=== PATIENT | female | born 2000 | race Caucasian/White ===

== ENCOUNTER → 2022-01-29 | Outpatient (CLI) | payer MEDICAID, SELFPAY ==
[2022-01-29 15:31] LABS: Mucous, Urine 0 SEEN /hpf (<or=2+)
[2022-01-29 15:45] LABS: Color, Urine Amber (Yellow); Glucose, Dipstick Normal (Normal); Ketone-Dipstick Negative (Negative); Leukocyte Esterase-Dipstick 100 /ul (Negative); Nitrite-Dipstick Negative (Negative); Occult Blood-Urine 10 /ul (Negative); Protein-Dipstick Negative (Negative); Urine Clarity Clear (Clear); Urine Urobilinogen 4 mg/dl (Normal); Urine pH 6.5 (5.0 - 8.0)
[2022-01-29 16:05] LABS: Urine Bilirubin Dipstick 3 mg/dL (Negative)
[2022-01-29 16:07] LABS: Bacteria 2+ /hpf (None Seen); Red Blood Cells-Urine 0-5 SEEN /hpf (0-5); Squamous Epithelial Cells - UA 5-10 SEEN /hpf (5-10); White Blood Cells 0-5 SEEN /hpf (0-5)
== END | disposition home or self-care (01) ==
LOC: LABSPEC 15:08
PROVIDERS: PCP Pediatrics; Visit Provider Physician Assistant
DX: R10.9 Unspecified abdominal pain (principal)
CPT/HCPCS: 81001; 87086; 87088

== ENCOUNTER → 2024-07-19 | Outpatient (CLI) | payer OTHER, SELFPAY ==
[2024-07-19 12:37] LABS: Absolute Lymphocyte Count 2.43 X10^3/uL (0.83-4.51); Absolute Neutrophil Count 1.4 X10^3/uL (2.0-7.7); Basophil# 0.06 X10^3/uL; Basophil% 1.4 % (0-1); Eosinophil# 0.04 X10^3/uL; Eosinophils% 0.9 % (0-5); Hematocrit 42.6 % (37-47); Hemoglobin 13.9 g/dL (12.0-15.0); Lymphocyte # 2.43 X10^3/ul (0.83-4.51); Lymphocyte % 57.2 % (19-41); Mean Corp Hgb Conc 32.6 g/dL (32-36); Mean Corpuscular Hgb 29.6 pg (27.0-32.0); Mean Corpuscular Volume 90.8 fL (81-99); Mean Platelet Vol. 10.9 fl (6.2-12.0); Monocyte# 0.32 X10^3/uL; Monocyte% 7.5 % (0-10); NRBC Flagged by Analyzer 0 % (0-5); Neutrophil # 1.39 X10^3/uL (2.7-7.7); Neutrophil % 32.8 % (47-70); Platelet Count 340 K/mm3 (150-450); RBC Distribution Width CV 12.4 % (11.6-14.6); RBC Distribution Width SD 40.9 fl (35.1-43.9); Red Blood Count 4.69 M/mm3 (4.2-5.4); White Blood Count 4.3 K/mm3 (4.4-11.0)
[2024-07-19 12:41] LABS: ALB/GLOB Ratio 1.1 RATIO (0.9-2.4); AST(SGOT) 11 U/L (15-37); Alanine Aminotransfer ALT/SGPT 18 U/L (13-56); Alkaline Phosphatase 70 U/L (45-117); Anion Gap 4 (5-15); BUN 9 mg/dL (7-18); BUN/Creat Ratio 10.3 RATIO (10-20); Calcium,Total 9.2 mg/dL (8.5-10.1); Chloride 107 mmol/L (98-107); Cholesterol 134 mg/dL (200); Creatinine, Serum 0.87 mg/dL (0.55-1.02); EST Glomerular Filtration Rate 86 mL/min (>60); Est Glom Filt Rate - Afr Amer 104 mL/min (>60); Globulin 3.5 g/dL (2.2-4.2); Glucose 79 mg/dL (74-106); High Density Lipoprotein 56 mg/dL; Potassium 3.6 mmol/L (3.5-5.1); Protein, Total 7.5 g/dL (6.4-8.2); Sodium Level 138 mmol/L (136-145); Triglycerides 69 mg/dL; Very Low Density Lipoprotein 14 mg/dL (5-40)
== END | disposition home or self-care (01) ==
LOC: BWCLAB 08:13
PROVIDERS: Referring Provider Physician Assistant; Visit Provider Physician Assistant
DX: Z00.00 Encounter for general adult medical examination without abnormal findings (principal)

== ENCOUNTER → 2024-08-05 | Outpatient (CLI) | payer OTHER, SELFPAY ==
[2024-08-11 08:24] LABS: HPV Reflexed? NOT INDICATED
== END | disposition home or self-care (01) ==
LOC: LABSPEC 16:33
PROVIDERS: Referring Provider Obstetrics & Gynecology; Visit Provider Obstetrics & Gynecology
DX: Z12.4 Encounter for screening for malignant neoplasm of cervix (principal)
CPT/HCPCS: 88175; G0145

== ENCOUNTER → 2025-04-21 | Outpatient (CLI) | payer OTHER, SELFPAY ==
--- OUTSIDE RECORDS SUMMARY | 2025-04-21 12:07 | XMS RPT_ITS | CCD ---
Author Organization [facility] Care Team Providers Care Cadmium Burner Name Role Phone Ashleigh Caraballo LPN Unavailable Unavailab Ashleigh Herrera LPN Unavailable Unavailab Clotilde Aparicio MD Primary Care Provider Dr. Clotilde Fox Primary Care Provider Dr. Clotilde Fox Referring Provider [phone] Rosales MCKNIGHT, [place] Jung Muniz Attending Provider Clotilde Fox MD Primary Care Provider Clotilde Fox MD Primary Care Provider CLOTILDE FOX Primary Care Unavailable AILYN PICHARDO Referring Unavailable RUDDY, CLOTILDE Mcmullen Primary Care Unavailable IRMA JAY Attending Unavailable AILYN PICHARDO Referring Unavailable CLOTILDE FOX Primary Care Unavailable CLOTILDE FOX Primary Care Unavailable CLOTILDE FOX Referring Unavailable RUDDY, CLOTILDE Primary Care Unavailable CLOTILDE FOX Attending Unavailable CLOTILDE FOX Primary Care Unavailable IRMA JAY Attending Unavailable RUDDY, CLOTILDE Mcmullen Primary Care Unavailable IRMA JAY Referring Unavailable Dr. Clotilde Fox MD Referring Provider Dr. Alisson Martell MD Attending Provider Dr. Alisson Martell MD Referring Provider [phone] Dr. Alisson Martell MD Attending Provider Dr. Nuris Ta DO Attending Provider Alisson Martell Attending Unavailable Alisson Martell Referring Unavailable Kervin Curtis Referring Unavailable Kervin Curtis Attending Unavailable Assessment, Health Risk Referring Unavaila ble Assessment, Health Risk Attending Unavaila ble Nuris Ta Attending UnavailAlisson Walter Attending Unavailable Alisson Martell Attending Unavailable Clotilde Fox Referring Unavailable Alisson Martell Attending Unavailable Kervin Curtis Attending Unavailable Allergies Allergy Classification Reported Allergen(s) Allergy Type Date of Onset Reaction(s) Facility (15 sources) Amoxicillin; Translations: [AMOXICILLIN] Drug Allergy 03-03-2013 [facility] (13 sources) cefpodoxime; Translations: [CEFPODOXIME PROXETIL] Drug Allergy 09-24-2005 [facility] Work Phone: (2 sources) cefpodoxime Drug Allergy 10-07-2024 [facility] (1 source) Amoxicillin Drug Allergy 01-03-2025 [facility] (1 source) cefpodoxime Drug Allergy 01-03-2025 [facility] Medications Current Medications Medication Drug Class(es) Dates Sig (Normalized) Sig (Original) benzoyl peroxide 0.05 mg/mg / clindamycin 0.01 mg/mg topical gel (11 sources) Lincosamide Antibacterial Start: 09-04-2021 End: 09-04-2022 Clindamycin-Benzoyl Peroxide (BENZACLIN) 1-5 % gel Apply to affected area twice daily. 50 g 5 09/04/2021 09/04/2022 Active Comment on above: Apply to affected ar ea twice daily. iv contrast (will be provided with radiology test) (1 source) Start: 02-20-2022 End: 02-21-2022 iv contrast (will be provided with radiology test) Indications: Elevated bilirubin , Abnormal results of liver function studies MRI PANC/COREY Inject, intravenously, once for 1 dose. No IV access, insert saline lock prior to the beginning of sedation, infusion, injection of imaging exam. Discontinue saline lock post exam. If Pt. has a central line or IVAD, may access for administration according to line specific nursing protocol. Once exam is complete flush line and de-access according to line specific nursing protocol in the MR contrast administration guidelines link. 1 Each 0 02/20/2022 02/21/2022 Active Comment on above: MRI PANC/COREY Inject, intravenously, once for 1 dose. No IV access, insert saline lock prior to the beginning of sedation, infusion, injection of imaging exam. Discontinue saline lock post exam. If Pt. has a central line or IVAD, may access for administration according to line specific nursing protocol. Once exam is complete flush line and de-access according to line specific nursing protocol in the MR contrast administration guidelines link. levonorgestrel 0.336299 mg/hr intrauterine system (2 sources) Progestin, Progestin-containin g Intrauterine Device Start: 10-07-2024 Levonorgestrel (Jacqueline) 14 mcg/24 hr (3 yrs) 13.5 mg intrauterine device Active 1 NMA INTRA-UTER ONCE October 07, 2024 12:00am as a single dose Completed/Discontinued Medications Medication Drug Class(es) Dates Sig (Normalized) Sig (Original) ferrous sulfate 325 mg oral tablet (4 sources) Start: 04-21-2022 ferrous sulfate 325 mg (65 mg iron) tablet Indications: Iron deficiency anemia, unspecified iron deficiency anemia type Take 1 tablet every other day (or Mon/Wed/Fri). Take with food to minimize GI upset. Take with vitamin C for better absorption. 90 tablet 0 04/21/2022 Active Start: 04-21-2022 End: 04-21-2022 take 1 tablet by mouth once daily at breakfast ferrous sulfate 325 mg (65 mg iron) tablet Indications: Iron deficiency anemia, unspecified iron deficiency anemia type Take 1 tablet by mouth daily with breakfast. 90 tablet 0 04/21/2022 04/21/2022 Discontinued Comment on above: Take 1 tablet every other day (or Mon/Wed/Fri). Take with food to minimize GI upset. Take with vitamin C for better absorption. Take 1 tablet by stephie th daily with breakfast. fluticasone propionate 0.05 mg/actuat metered dose nasal spray (6 sources) Corticosteroid Start: 022 take 1 spray(s) nasal route twice daily fluticasone (FLONASE) 50 mcg/actuation nasal spray INSTILL 1 SPRAY INTO EACH NOSTRIL 2 (TWO) TIMES A DAY FOR 28 DAYS 0 02/14/2022 Active Comment on above: INSTILL 1 SPRAY INTO EACH NOSTRIL 2 (TWO) TIMES A DAY FOR 28 DAYS nitrofurantoin, macrocrystals 25 mg / nitrofurantoin, monohydrate 75 mg oral capsule (10 sources) Nitrofuran Antibacterial Start: End: take 1 capsule by mouth every twelve hours at mealtime Nitrofurantoin Monohyd/M-Cryst (Macrobid) 100 mg capsule Discontinued 100 mg PO Q12H 10 5 0 January 29, 2022 12:00am February 02, 2022 12:00am February 03, 2022 12:03am must administer with a meal/food Comment on above: Take 100 mg by mouth q 12 HR. Problems Active Problems Problem Classification Problem Date Documented Date Episodic/Chronic Abdominal pain (4 sources) Abdominal pain; Translations: [Unspecified abdominal pain] Episodic Administrative/social admission (4 sources) Special examination status; Translations: [Encounter for examination for participation in sport] Episodic Biliary tract disease (1 source) Cholestasis; Translations: [Obstruction of bile duct] Chronic Deficiency and other anemia (1 source) Iron deficiency anemia; Translations: [Iron deficiency anemia, unspecified] Episodic Genitourinary symptoms and ill-defined conditions (4 sources) Bilirubinuria; Translations: [Biliuria] Episodic Immunizations and screening for infectious disease (1 source) Encounter for immunization; Translations: [Encounter for immunization] Onset: 01-03-2025 Episodic Other liver diseases (5 sources) Hyperbilirubinemia; Translations: [Unspecified jaundice] Episodic Other liver diseases (2 sources) Increased bilirubin level; Translations: [Unspecified jaundice] Episodic Other liver diseases (2 sources) Unspecified jaundice; Translations: [Serum total bilirubin elevated] Onset: 04-21-2022 Episodic Other nutritional; endocrine; and metabolic disorders (2 sources) History of iron deficiency; Translations: [Personal history of other endocrine, nutritional and metabolic disease] Episodic Other nutritional; endocrine; and metabolic disorders (1 source) Personal history of other endocrine, nutritional and metabolic disease; Translations: [History of iron deficiency] Onset: 02-23-2023 Episodic Unclassified (2 sources) History and physical examination, sports participation ; Translations: [Encounter for examination for participation in sport] Onset: 01-26-2017 01-26-2017 Urinary tract infections (4 sources) Urinary tract infectious disease; Translations: [Urinary tract infection, site not specified] Episodic Past or Other Problems Problem Classification Problem Date Documented Date Episodic/Chronic Contraceptive and procreative management (7 sources) Patient encounter status; Translations: [Encounter for insertion of intrauterine contraceptive device] Onset: 10-07-2024 10-07-2024 Episodic Deficiency and other anemia (1 source) Iron deficiency anemia, unspecified; Translations: [Iron deficiency anemia, unspecified iron deficiency anemia type] Onset: 04-21-2022 Episodic Other screening for suspected conditions (not mental disorders or infectious disease) (4 sources) Liver function tests abnormal; Translations: [Abnormal results of liver function studies] Onset: 03-13-2022 Episodic Other upper respiratory infections (2 sources) Acute pharyngitis; Translations: [Acute pharyngitis, unspecified] Onset: 02-23-2010 Resolved: 03-09-2010 02-23-2010 Episodic Results Test Name Value Interpretation Reference Range Facility Office Visit Reporton 2024 Office Visit Report [facility] [address] [place] [address] OFFICE VISIT Date of Service: 01/03/25 MR#: [id number] Acct: [id number] Patient: ELIZABETH DUKE Rep #: [id number] : 2000 Provider: Dr. Nuris Chu DO Age/Sex: 24/F [place] [facility] [place]: Signed Intake Vital Signs 11/17/24 12:06 01/03/25 11:34 Height 5 ft 11 in 5 ft 11 in Weight: 178 lb BMI 24.8 BP 123/76 H Intake Visit Reasons: TDAP *ok per MS Chief Complaint: Annual Propagator Laborer Required: No Is patient in pain?: No Allergies amoxicillin Adverse Reaction (Intermediate, Verified 01/03/25 11:34) Hives cefpodoxime (From Vantin) Adverse Reaction (Mild, Verified 01/03/25 11:34) Hives Medications ???Medication ???Instructions ???Recorded ???Confirmed ???Type levonorgestrel 14 mcg/24 hr (up to 1 device intrauterine ONCE 10/0701/03/25 History 3 yrs) 13.5 mg intrauterine device (Jacqueline) Post menopausal: No Patient : No Have you fallen in the past year?: No Immunizations Boostrix Tdap 2.5 Lf unit-8 mcg-5 Lf/0.5 mL intramuscular syringe Performing Provider: Nuris Ta DO Performing Location: [facility] Administered by: Destiney Peralta on 01/03/25 11:34 Dose Route Admin Location Dispensed Lot Number Expiration Date NDC Man ufacturer 0.5 mL IM Right Deltoid 0.5 mL [id number] 01/02/27 71550-998-77 [employer]- PASTEUR VIS Given Date VIS Provided VIS Publication Date 01/03/25 Single Vaccine 24 Eligibility Eligibility Date Funding Source Not Applicable Assessment and Plan Assessment and Plan Orders: Orders Tdap Immunization 01/03/25 Z23 - Encounter for immunization Clinical Quality Measures Falls Risk Screening/Assistive Devices Have you fallen in the past year?: No 01/09/25 1255 Date Nuris Ta DO Cosigner Signature: Date (if applicable) CC: Normal [facility] Higher Level Teaching Assistant Office Visit Reporton 11-17-2024 Higher Level Teaching Assistant Office Visit Report [facility] [address], [facility] [address] [place] [address] OFFICE VISIT Date of Service: 11/17/24 MR#: [id number] Acct: [id number] Name: ELIZABETH DUKE Rep #: [id number] : 2000 Provider: Dr. Alisson granados MD Age/Sex: 24/F [place] [facility] [place]: Signed Intake Vital Signs 10/07/24 16:14 11/17/24 12:05 11/17/24 12:06 Height 5 ft 11 in 5 ft 11 in 5 ft 11 in Weight: 175 lb 4 oz BMI 24.4 BP 146/93 H 134/89 H Intake Visit Reasons: IUD check *copay 19.00 Propagator Laborer Required: No Is patient in pain?: Yes (cramping since IUD insertion) Allergies amoxicillin Adverse Reaction (Intermediate, Verified 10/07/24 16:20) Hives cefpodoxime (From Vantin) Adverse Reaction (Mild, Verified 10/07/24 16:20) Hives Medications ???Medication ???Instructions ???Recorded ???Confirmed ???Type levonorgestrel 14 mcg/24 hr (up to 1 device intrauterine ONCE 10/0711/17/24 History 3 yrs) 13.5 mg intrauterine device (Jacqueline) Is last menstrual period known: Yes Last Menstrual Period: 10/22/24 Post menopausal: No Patient : No : No PFSH Medical History (Updated 11/18/24 @ 17:[address] 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 Female Reproductive History Last Menstrual Period: 10/22/24 ROS Const Constitutional: Reports system reviewed and no additional complaints, except as documented : Reports system reviewed and no additional complaints, except as documented and as per HPI Exam Const General: cooperative, healthy appearing, comfortable and no acute distress External Female Exam: normal external appearance Coding Level of Care Code Off vis,est,level 2 Diagnoses IUD check up Z30.431 Assessment and Plan Assessment and Plan (1) IUD check up: Plan Problem list updated and treatment plans were reviewed with the patient and relevant educational handouts given. See problem list details for specific plan information. 11/18/24 1717 Date Alisson Martell MD Cosigner Signature: Date (if applicable) CC: Normal [facility] - Chemistry and C hemistry - challengeOrdered By: Alisson Martell on 10-07-2024 HCG ( test) Ql (U) Negative [facility] Higher Level Teaching Assistant Office Visit Reporton 10-07-2024 Higher Level Teaching Assistant Office Visit Report [facility] [address], [address] [place] [address] OFFICE VISIT Date of Service: 10/07/24 MR#: [id number] Acct: [id number] Name: ELIZABETH DUKE Rep #: [id number] : 2000 Provider: Dr. Alisson granados MD Age/Sex: 23/F [place] [facility] [place]: Signed Intake Vital Signs 08/05/24 15:58 10/07/24 16:14 Height 5 ft 11 in 5 ft 11 in Weight: 175 lb 175 lb 4 oz BMI 24.4 24.4 BP 132/86 H 146/93 H Intake Visit Reasons: Jacqueline Insertion *copay 19.00 Propagator Laborer Required: No Is patient in pain?: No Allergies amoxicillin Adverse Reaction (Intermediate, Verified 10/07/24 16:20) Hives cefpodoxime (From Vantin) Adverse Reaction (Mild, Verified 10/07/24 16:20) Hives Medications ???Medication ???Instructions ???Recorded ???Confirmed ???Type levonorgestrel 14 mcg/24 hr (up to 1 device intrauterine ONCE 10/0710/07/24 History 3 yrs) 13.5 mg intrauterine device (Jacqueline) Is last menstrual period known: Yes Last Menstrual Period: 09/26/24 Post menopausal: No Patient : No : No PFSH PFSH Medical History Wears glasses Bilirubin in urine Urinary tract infection with hematuria Routine sports physical exam Abdominal pain Surgical History H/O tooth extraction Family History Father Parkinson disease Unknown Breast cancer Social History household members: spouse and other details: in [employer], 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 smoker alcohol intake: current alcohol intake frequency: holidays/special occasions only substance use type: does not use what type of physical activity do you participate in: weight training frequency: 3-4 times per week seatbelt use: always do you feel safe at home: Yes HPI Jacqueline Insertion *copay 19.00 Details: ELIZABETH DUKE is a 23 year old who presents for iud insertion Female Reproductive History Last Menstrual Period: 09/26/24 ROS Const Constitutional: Reports system reviewed and no additional complaints, except as documented : Reports system reviewed and no additional complaints, except as documented and as per HPI Exam Const General: cooperative, healthy appearing, comfortable and no acute distress External Female Exam: normal external appearance and normal appearance of the urethra Urethra: normal appearance of the urethra Speculum Exam - Vagina: normal appearance of the vagina and normal vaginal discharge Speculum Exam - Cervix: normal appearance of the cervix (strings seen 3-4 cm in length) Bimanual Exam- Vagina Uterus: normal bimanual exam Bimanual Exam- Adnexa, other: normal adnexae, adnexae mobile and no masses Office Procedures IUD Insertion IUD GC/Chlamydia:: not done Test: Yes Negative Consent Signed: Yes IUD: Yes Jacqueline IUD inserted Time out time: 16:45 Details: Sign in Communication: Completed Sign out documentation: Completed The uterus sounded to 7 cm. After prepping the cervix with betadine and using sterile technique, the cervix was grasped with a single tooth tenaculum and the IUD was inserted without difficulty and the string was cut to 3cm from the external os of the cervix. All instruments were removed from the vagina and excellent hemostasis was noted. Procedure Summary: patient tolerated the procedure well without complication. Office Meds levonorgestrel 14 mcg/24 hr (up to 3 yrs) 13.5 mg intrauterine device Performing Provider: Alisson Martell MD Performing Location: [facility] Administered by: Destiney Peralta on 10/07/24 16:15 Dose Route Admin Location Dispensed Lot Number Expiration Date [facility] Man ufacturer 1 insert intrauterine [facility] 1 insert [id number] 09/02/26 77821-2 22- CARLOS,[employer] Total Dispensed Waste 1 insert 0 % Results POC Urine Office , Urine Negative Last Edit by Destiney Peralta on 10/07/24 16:28 Coding Level of Care Code Attention Sharon Diagnoses Encounter for IUD insertion Z30.430 Assessment and Plan Assessment and Plan (1) Encounter for IUD insertion: Status: Acute Orders: Orders Jacqueline IUD Today Z30.430 - Encounter for insertion of intrauterine contraceptive device POC Urine Today Z30.9 - Encounter for contraceptive management, unspecified Plan Problem list updated and treatment plans were reviewed with the patient and relevant educational handouts given. See problem list details for specific (more content not included)... Normal [facility] PAP I-G w/rfx hrHPV-Aptimaon 08-10-2024 ADEQ Comment Normal . [facility] Comment on above: Order Comment: Speci men Comment: [id number] Specimen Comment: Source.............Cervix;Endocervix Specimen Comment: No. of containers..01 ThinPrep Vial Result Comment: Sati sfactory for evaluation. Endocervical and/or squamous metaplastic cells (endocervical component) are present. Performed By: #### L 7400.0353 #### [facility] [place], [address] COMM . Normal . [facility] Comment on above: Order Comment: Speci men Comment: [id number] Specimen Comment: Source.............Cervix;Endocervix Specimen Comment: No. of containers..01 ThinPrep Vial Performed By: #### L 7400.0353 #### [facility] [address] [place], [place], [address] COMMENT Comment Normal . [facility] Comment on above: Order Comment: Speci men Comment: [id number] Specimen Comment: Source.............Cervix;Endocervix Specimen Comment: No. of containers..01 ThinPrep Vial Result Comment: This liquid based ThinPrep(R) pap test was screened with the use of an image guided system. Performed By: #### L 7400.0353 #### [facility] [address] [place], [place], [id number] DIAG Comment Normal . [facility] Comment on above: Order Comment: Speci men Comment: [id number] Specimen Comment: Source.............Cervix;Endocervix Specimen Comment: No. of containers..01 ThinPrep Vial Result Comment: NEGA TIVE FOR INTRAEPITHELIAL LESION OR MALIGNANCY. Performed By: #### L 7400.0353 #### [facility] [address] [facility]. [place], [place], [id number] HPV RFLX Comment Normal . [facility] Comment on above: Order Comment: Speci men Comment: [id number] Specimen Comment: Source.............Cervix;Endocervix Specimen Comment: No. of containers..01 ThinPrep Vial Result Comment: The HPV DNA reflex criteria were not met with this specimen result therefore, no HPV testing was performed. Performed at: [address] [id number] Flux Plant Operator: Franco Castro PhD, Phone: [phone] Performed at: [address] [id number] Flux Plant Operator: Carla Goldstein MD, Phone: [phone] Performed By: #### L 7400.0353 #### [facility] [address] [place], [place], [id number] PAPSMR Comment Normal . [facility] Comment on above: Order Comment: Speci men Comment: [id number] Specimen Comment: Source.............Cervix;Endocervix Specimen Comment: No. of containers..01 ThinPrep Vial Result Comment: The Pap smear is a screening test designed to aid in the detection of premalignant and malignant conditions of the uterine cervix. It is not a diagnostic procedure and should not be used as the sole means of detecting cervical cancer. Both false-positive and false-negative reports do occur. Performed By: #### L 7400.0353 #### [facility] [address] [place], [address] PERFORM Comment Normal . [facility] Comment on above: Order Comment: Speci men Comment: [id number] Specimen Comment: Source.............Cervix;Endocervix Specimen Comment: No. of containers..01 ThinPrep Vial Result Comment: Norma Ann Lacing String Cutter (ASCP) Performed By: #### L 7400.0353 #### [facility] [address] [place], [place], [id number] Cervical or vagninal specime n microscopic examination by cytology stain (reported asOrdered By: Alisson Martell on 08-05-2024 Cytology report Cyto stain Doc (Cvx/Vag) Comment . [facility] Comment on above: The Pap smear is a s creening test designed to aid in thedetection of premalignant and malignant conditions of theuterine cervix. It is not a diagnostic procedure andshould not be used as the sole means of detecting cervicalcancer. Both false-positive and false-negative reports dooccur. Laboratory - CytologyOrdered By: Alisson Martell on 08-05-2024 Anesthesiologist Attending Cyto stain Nom (Cvx/Vag) [ID] Comment . [facility] Comment on above: Rae Ann, Cyto technologist (ASCP) Laboratory - Miscellaneous t estsOrdered By: Alisson Martell on 08-05-2024 Service comment (Unsp spec) [Interp] . . [facility] No Panel InformationOrdered By: Alisson Martell on 08-05-2024 Pap Smear Specimen Adequacy Comment . [facility] Comment on above: Satisfactory for jonnie luation. Endocervical and/or squamous metaplasticcells (endocervical component) are present. Higher Level Teaching Assistant Office Visit Reporton 08-05-2024 Higher Level Teaching Assistant Office Visit Report [facility] [address], [address] [place] [address] OFFICE VISIT Date of Service: 08/05/24 MR#: [id number] Acct: [id number] Name: ELIZABETH DUKE Rep #: [id number] : 2000 Provider: Dr. 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 considering IUD, discussed 24 year old cousin has breast cancer Last PAP: Never History of abnormal PAP: none Other preventative health care screenings: PCP Female Reproductive History Cycle Length: 21-35 Bleeding Duration: 5 Questions: metorrhagia: No, sexually active: Yes, dyspareunia: No and PCB: No Menopausal Symptoms: No hot flashes, No night sweats, No weight change, No mood changes, No difficulty concentrating, No sleep problems and No change in libido ROS Const Constitutional: Reports as per HPI; Denies fatigue, increased appetite, poor appetite, night sweats, weight gain or weight loss Cardio Card: Denies chest pain Resp Resp: Denies cough or dyspnea GI GI: Reports as per HPI; Denies abdominal pain, bloating, constipation, nausea or vomiting : Reports as per HPI and other; Denies difficulty voiding, dysuria, hematuria, hot flashes, nipple discharge, pelvic pain, prolapse symptoms, urinary frequency, urinary incontinence, urinary urgency, vaginal discharge, vaginal dryness, vaginal odor or vaginal pruritus Skin Skin/Breast: Denies changing lesions, breast mass, breast pain, breast skin changes or nipple discharge Psych Psych: Denies anxiety, change in libido, depression or difficulty concentrating Exam Const General: cooperative, healthy appearing, comfortable, no acute distress, well developed and well groomed [facility] Head: normal to inspection and normocephalic Ears: hearing grossly normal bilaterally and external ears normal Nose: external nose normal Face and sinus: normal facial exam Neck Neck: normal visual inspection, full ROM and no lymphadenopathy Thyroid: thyroid normal Chest Chest palpation inspection: normal inspection of the chest Breast inspection: normal inspection of the breasts and normal inspection of the axillae Breast palpation: normal palpation of the breasts, normal palpation of the axillae and no axillary lymphadenopathy Resp Effort Inspection: normal respiratory effort GI Inspection: normal to inspection and non-distended Palpation: soft, no hepatosplenomegaly and no guarding General: bladder normal to palpation External Female Exam: normal external appearance, normal appearance of the urethra and no lesions Urethra: normal appearance of the urethra and normal palpation Speculum Exam - Vagina: normal appearance of the vagina and normal vaginal discharge Speculum Exam - Cervix: normal appearance of the cervix, no cervical discharge, no lesions and nontender Bimanual Exam- Vagina Uterus: normal bimanual exam, uterine size normal, bladder normal to palpation, No tender, uterine mobility normal, consistency normal, non-tender and no cervical motion tenderness Bimanual Exam- Adnexa, other: normal adnexae, no masses and non-tender Skin General: no rashes or lesions noted Neuro General: patient alert, moves all extremities and no focal motor (more content not included)... Normal [facility] CBC W/Diff, Automatedon 07-06-2024 Absolute Lymph 2.43 X10 3/uL Normal 0.83-4.51 [facility] Comment on above: Performed By: #### L 500.4050, L100.0100, L500.4100 #### [facility] [address] [place], [address] Absolute Neut 1.4 X10 3/uL Low 2.0-7.7 [facility] Comment on above: Performed By: #### L 500.4050, L100.0100, L500.4100 #### [facility] [address] [place], [address] Basophils/100 WBC (Bld) 1.4 % High 0-1 [facility] Comment on above: Performed By: #### L 500.4050, L100.0100, L500.4100 #### [facility] [address] [place], [address] Eosinophils/100 WBC (Bld) 0.9 % Normal 0-5 [facility] Comment on above: Performed By: #### L 500.4050, L100.0100, L500.4100 #### [facility] [address] [place], [address] Erythrocyte distribution width (RBC) [Ratio] 12.4 % Normal 11.6-14.6 [facility] Comment on above: Performed By: #### L 500.4050, L100.0100, L500.4100 #### [facility] [address] [place], [address] Hematocrit (Bld) [Volume fraction] 42.6 % Normal 37-47 [facility] Comment on above: Performed By: #### L 500.4050, L100.0100, L500.4100 #### [facility] [address] [place], [address] Hemoglobin (Bld) [Mass/Vol] 13.9 g/dL Normal 12.0-15.0 [facility] Comment on above: Performed By: #### L 500.4050, L100.0100, L500.4100 #### [facility] [address] [place], [address] IG% 0.200 Normal 0.0-0.9 [facility] Comment on above: Result Comment: IG% - Immature Granulocytes (promyelocytes, myelocytes and metamyelocytes) > 1% indicates that a LEFT SHIFT is Present. Performed By: #### L 500.4050, L100.0100, L500.4100 #### [facility] [address] [place], [address] Lymphocytes/100 WBC (Bld) 57.2 % High 19-41 [facility] Comment on above: Performed By: #### L 500.4050, L100.0100, L500.4100 #### [facility] [address] [place], [address] MCH (RBC) [Entitic mass] 29.6 pg Normal 27.0-32.0 [facility] Comment on above: Performed By: #### L 500.4050, L100.0100, L500.4100 #### [facility] [address] [place], [address] MCHC (RBC) [Mass/Vol] 32.6 g/dL Normal 32-36 [facility] Comment on above: Performed By: #### L 500.4050, L100.0100, L500.4100 #### [facility] [address] [place], [address] MCV (RBC) [Entitic vol] 90.8 fL Normal 81-99 [facility] Comment on above: Performed By: #### L 500.4050, L100.0100, L500.4100 #### [facility] [address] [place], [address] Monocytes/100 WBC (Bld) 7.5 % Normal 0-10 [facility] Comment on above: Performed By: #### L 500.4050, L100.0100, L500.4100 #### [facility] [address] [place], [address] Neutrophils/100 WBC (Bld) 32.8 % Low 47-70 [facility] Comment on above: Performed By: #### L 500.4050, L100.0100, L500.4100 #### [facility] [address] [place], [address] Nucleated RBC (Bld) [#/Vol] 0 10*3/uL Normal 0-5 [facility] Comment on above: Performed By: #### L 500.4050, L100.0100, L500.4100 #### [facility] [address] [place], [address] Platelet mean volume (Bld) [Entitic vol] 10.9 fL Normal 6.2-12.0 [facility] Comment on above: Performed By: #### L 500.4050, L100.0100, L500.4100 #### [facility] [address] [place], [id number] Platelets (Bld) [#/Vol] 340 10*3/uL Normal 150-450 [facility] Comment on above: Performed By: #### L 500.4050, L100.0100, L500.4100 #### [facility] [address] [place], [id number] RBC (Bld) [#/Vol] 4.69 10*6/uL Normal 4.2-5.4 [facility] Comment on above: Performed By: #### L 500.4050, L100.0100, L500.4100 #### [facility] [address] [place], [id number] RDW SD 40.9 fl Normal 35.1-43.9 [facility] Comment on above: Performed By: #### L 500.4050, L100.0100, L500.4100 #### [facility] [address] [place], [id number] WBC (Bld) [#/Vol] 4.3 10*3/uL Low 4.4-11.0 [facility] Comment on above: Performed By: #### L 500.4050, L100.0100, L500.4100 #### [facility] [address] [place], [id number] Comprehensive Metabolic Prof [facility] 07-19-2024 Albumin [Mass/Vol] 4.0 g/dL Normal 3.2-5.0 [facility] Comment on above: Performed By: #### L 500.4050, L100.0100, L500.4100 #### [facility] [address] [place], [id number] Albumin/Globulin [Mass ratio] 1.1 {ratio} Normal 0.9-2.4 [facility] Comment on above: Performed By: #### L 500.4050, L100.0100, L500.4100 #### [facility] [address] [place], [address] ALK P 70 U/L Normal 45-117 [facility] Comment on above: Performed By: #### L 500.4050, L100.0100, L500.4100 #### [facility] [address] [place], [address] ALT [Catalytic activity/Vol] 18 U/L Normal 13-56 [facility] Comment on above: Performed By: #### L 500.4050, L100.0100, L500.4100 #### [facility] [address] [place], [address] AST [Catalytic activity/Vol] 11 U/L Low 15-37 [facility] Comment on above: Performed By: #### L 500.4050, L100.0100, L500.4100 #### [facility] [address] [place], [id number] Bilirubin [Mass/Vol] 2.90 mg/dL High 0.20-1.00 [facility] Comment on above: Result Comment: For patients on eltrombopag therapy, use of Dimension [place] TBIL is not recommended. Performed By: #### L 500.4050, L100.0100, L500.4100 #### [facility] [address] [place], [id number] BUN/CRE 10.3 RATIO Normal 10-20 [facility] Comment on above: Performed By: #### L 500.4050, L100.0100, L500.4100 #### [facility] [address] [place], [address] CA,Total 9.2 mg/dL Normal 8.5-10.1 [facility] Comment on above: Performed By: #### L 500.4050, L100.0100, L500.4100 #### [facility] [address] [place], [address] Chloride [Moles/Vol] 107 mmol/L Normal 98-107 [facility] Comment on above: Performed By: #### L 500.4050, L100.0100, L500.4100 #### [facility] [address] [place], [address] CO2 [Moles/Vol] 28.0 mmol/L Normal 21.0-32.0 [facility] Comment on above: Performed By: #### L 500.4050, L100.0100, L500.4100 #### [facility] [address] [place], [address] Creatinine [Mass/Vol] 0.87 mg/dL Normal 0.55-1.02 [facility] Comment on above: Result Comment: The validity of the calculated GFR GFRAA in patients over 70 years has not been determined. Clinical correlation is essential. Performed By: #### L 500.4050, L100.0100, L500.4100 #### [facility] [address] [place], [address] EST GFR - AA 104 mL/min Normal >60 [facility] Comment on above: Result Comment: Afri can Kyr[place]z GFR Calc Performed By: #### L 500.4050, L100.0100, L500.4100 #### [facility] [address] [place], [address] GAP 4 Low 5-15 [facility] Comment on above: Performed By: #### L 500.4050, L100.0100, L500.4100 #### [facility] [address] [place], [address] GFR/1.73 sq M.predicted among non-blacks MDRD (S/P/Bld) [Vol rate/Area] 86 mL/min/{1.73_m2} Normal >60 [facility] Comment on above: Result Comment: Non- GFR Calc Performed By: #### L 500.4050, L100.0100, L500.4100 #### [facility] [address] [place], [address] Globulin (S) [Mass/Vol] 3.5 g/dL Normal 2.2-4.2 [facility] Comment on above: Performed By: #### L 500.4050, L100.0100, L500.4100 #### [facility] [address] [place], [address] Glucose [Mass/Vol] 79 mg/dL Normal 74-106 [facility] Comment on above: Performed By: #### L 500.4050, L100.0100, L500.4100 #### [facility] [address] [place], [address] Potassium [Moles/Vol] 3.6 mmol/L Normal 3.5-5.1 [facility] Comment on above: Performed By: #### L 500.4050, L100.0100, L500.4100 #### [facility] [address] [place], [address] Sodium [Moles/Vol] 138 mmol/L Normal 136-145 [facility] Comment on above: Performed By: #### L 500.4050, L100.0100, L500.4100 #### [facility] [address] [place], [address] T PROT 7.5 g/dL Normal 6.4-8.2 [facility] Comment on above: Performed By: #### L 500.4050, L100.0100, L500.4100 #### [facility] [address] [place], [address] Urea nitrogen [Mass/Vol] 9 mg/dL Normal 7-18 [facility] Comment on above: Performed By: #### L 500.4050, L100.0100, L500.4100 #### [facility] [address] [place], [address] Lipid Profileon 07-19-2024 Cholesterol [Mass/Vol] 134 mg/dL Normal 200 [facility] Comment on above: Result Comment: <200 mg/dL Desirable 200-240 mg/dL Borderline >240 mg/dL High Risk Performed By: #### L 500.4050, L100.0100, L500.4100 #### [facility] [address] [place], [address] Cholesterol in HDL [Mass/Vol] 56 mg/dL Normal [facility] Comment on above: Result Comment: The drugs N-Acetylcysteine and Metamizole may falsely depress this assay. Reference Range HDL <40 mg/dL Low HDL Cholesterol HDL >or= 60 mg/dL High HDL Cholesterol Performed By: #### L 500.4050, L100.0100, L500.4100 #### [facility] [address] [place], [address] Cholesterol in LDL [Mass/Vol] 64 mg/dL Normal 0-130 [facility] Comment on above: Performed By: #### L 500.4050, L100.0100, L500.4100 #### [facility] [address] [place], [address] Cholesterol in VLDL [Mass/Vol] 14 mg/dL Normal 5-40 [facility] Comment on above: Performed By: #### L 500.4050, L100.0100, L500.4100 #### [facility] [address] [place], [address] Triglyceride [Mass/Vol] 69 mg/dL Normal [facility] Comment on above: Result Comment: The drugs N-Acetylcysteine and Metamizole may falsely depress this assay. Serum Triglycerides Reference Interval Normal <150 mg/dL Borderline high 150 - 199 mg/dL High 200 - 499 mg/dL Very High > or = 500 mg/dL Performed By: #### L 500.4050, L100.0100, L500.4100 #### [facility] [address] [place], [address] Internal Medicine Office Vis iton 07-15-2024 Internal Medicine Office Visit [facility] [address] [place] [address] OFFICE VISIT Date of Service: 07/15/24 MR#: [id number] Acct: [id number] Name: ELIZABETH DUKE Rep #: [id number] : 2000 Provider: JUAN LUIS Erickson Age/Sex: 23/F Location: [facility] Status: Signed Intake Vital Signs 07/15/24 07:51 07/15/24 08:36 Height 5 ft 11 in Weight: 180 lb BMI 25.1 BP 120/70 Blood Pressure Location Lt brachial Position Sitting Respiration 16 Pulse 102 H 88 Pulse Source Monitor Palpation Temp 97.2 F L Temp Source Temporal Pulse Oximetry (%) 99 Oxygen Delivery Method room air Intake Visit Reasons: EST NEW PT - PPWKS SENT 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 Accompanied by: Self Is patient in pain?: No Allergies amoxicillin Adverse Reaction (Intermediate, Verified 07/15/24 07:43) Hives cefpodoxime (From Vantin) Adverse Reaction (Mild, Verified 07/15/24 07:43) Hives Medications ???Medication ???Instructions ???Recorded ???Confirmed ???Type NK 07/15/24 07/15/24 History PFSH Medical History (Updated 07/15/24 @ 08:32 by JUAN LUIS Root) Wears glasses Bilirubin in urine Urinary tract infection with hematuria Routine sports physical exam Abdominal pain Surgical History (Updated 07/15/24 @ 07:44 by Lorena Lopez MA) H/O tooth extraction Family History (Updated 07/15/24 @ 07:44 by Lorena Lopez MA) Father Parkinson disease Social History (Updated 07/15/24 @ 07:54 by Lorena Lopez MA) household members: spouse and other details: in [employer], 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 Patient states that to this point she has only seen her counselor dormitory and they would not see her anymore Patient states that she is a healthy 23 year old female with a PMH significant only for some anemia requiring Iron supplements and acne requiring medication. Patient does have a history of Gilbert syndrome where she had a large work-up which was normal and therefore was given that diagnosis. No other issues. Family history positive for parkinsons in her father. She has a first cousin he has breast cancer at age 24 so the family is doing genetic counseling She is not currently taking any prescription medications Patient does get regular exercise 3-4 times per week Patient states that her diet is good She sees eye doctor annually. She does wear contacts and glasses She has not seen a dentist in a few years. She has not had any dental issues Patient as UTD with immunizations. 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 Patient is seeing director of tax services and sees them at the end of this month Patient does not consume alcohol No nicotine use Limited caffeine use ROS Const Constitutional: No body ache, chills, excessive sweating, fatigue, fever(s), frequent falls, headache(s), snoring, weakness or change in appetite Eyes Eyes: No blurry vision, change in vision, eye pain or Light sensitivity ENT ENT: No abnormal hearing, ear or mastoid pain, tinnitus, nasal congestion, headache(s), neck pain or sore throat Resp Respiratory: No cough, shortness of breath, snoring or wheezing Cardio Cardiology: No chest pain at rest, chest pain with exertion, excessive sweating, dyspnea on exertion, lightheadedness, orthopnea or palpitations Gastro GI: No abdominal pain, change in bowel habits, constipation, cramping, diarrhea, nausea/dyspepsia or vomiting Genitourinary-Female: No burning urination, painful urination, urinary incontinence or urinary frequency Musc Musculoskeletal: No abnormal gait, joint pain, back pain, limited range of motion, muscle weakness, neck pain or numbness Skin Skin: No dry skin, redness, lesions, itchy eyes, rash or wounds Neuro Neurology: No abnormal gait, abnormal hearing, weakness, frequent falls, headache(s), memory loss or numbness Psych Psychiatric: No anxiety, No change in appetite, No depression, No memory loss and No Thoughts of harming yourself/Others Endo Endocrine: No cold intolerance, excessive sweating, fatigue, flushing, heat intolerance, increased thirst/drinking or increased hunger Aller/Imm Allergy/Immunologic: No itchy eyes, seasonal allergy symptoms, hives or wheezing Irving/L (more content not included)... Normal [facility] CBC panel Auto (Bld)on 02-24 Erythrocyte distribution width (RBC) [Ratio] 12.0 % 11.5 - 15.0 % [facility] Hematocrit (Bld) [Volume fraction] 43.9 % 36.0 - 46.0 % [facility] Hemoglobin (Bld) [Mass/Vol] 14.8 g/dL 11.5 - 15.5 g/dL [facility] MCH (RBC) [Entitic mass] 30.1 pg 26.0 - 34.0 pg [facility] MCHC (RBC) [Mass/Vol] 33.7 g/dL 30.5 - 36.0 g/dL [facility] MCV (RBC) [Entitic vol] 89.2 fL 80.0 - 100.0 fL [facility] Nucleated RBC (Bld) [#/Vol] <0.01 k/uL [facility] Platelet mean volume (Bld) [Entitic vol] 11.1 fL 9.0 - 12.7 fL [facility] Platelets (Bld) [#/Vol] 341 10*3/uL 150 - 400 k/uL [facility] RBC (Bld) [#/Vol] 4.92 10*6/uL 3.90 - 5.2 0 m/uL [facility] WBC (Bld) [#/Vol] 7.12 10*3/uL 3.70 - 11. 00 k/uL [facility] FERRITIN BLDon 02-24-2023 Ferritin [Mass/Vol] 18.5 ng/mL 14.7 - 2 05.1 ng/mL [facility] bilirubin panel [Ma ss/Vol]on 02-24-2023 Bilirubin [Mass/Vol] 2.5 mg/dL High 0.2 - 1 .3 mg/dL [facility] Bilirubin.conjugated [Mass/Vol] 1.7 mg/dL High <0.2 mg/dL [facility] Bilirubin.indirect [Mass/Vol] 0.8 mg/dL <1.4 mg/dL [facility] CBC panel Auto (Bld)on 02-23 Erythrocyte distribution width (RBC) [Ratio] 12.0 % Normal 11.5-15.0 [facility] Comment on above: Order Comment: Speci men Type: BLOOD SPECIMEN Ordering Facility: [facility] Address: [address] [place] [address] Performed By: #### 5 8410-2 #### [facility] CLIA [id number] [facility] [address] [place] Hematocrit (Bld) [Volume fraction] 43.9 % Normal 36.0-46.0 [facility] Comment on above: Order Comment: Joycei pricila Type: BLOOD SPECIMEN Ordering Facility: [facility] Address: [address] [place] [address] Performed By: #### 5 8410-2 #### [facility] CLIA [id number] [facility] [address] [place] Hemoglobin (Bld) [Mass/Vol] 14.8 g/dL Normal 11.5-15.5 [facility] Comment on above: Order Comment: Speci men Type: BLOOD SPECIMEN Ordering Facility: [facility] Address: [address] [place] [address] Performed By: #### 5 8410-2 #### [facility] CLIA [id number] [address] [place] [address] [place] MCH (RBC) [Entitic mass] 30.1 pg Normal 26.0-34.0 [facility] Comment on above: Order Comment: Speci men Type: BLOOD SPECIMEN Ordering Facility: [facility] Address: [address] [place], [place] [id number] Performed By: #### 5 8410-2 #### [facility] CLIA [id number] [address] [place] [address] [place] MCHC (RBC) [Mass/Vol] 33.7 g/dL Normal 30.5-36.0 [facility] Comment on above: Order Comment: Speci men Type: BLOOD SPECIMEN Ordering Facility: [facility] Address: [address] [place], [place] [id number] Performed By: #### 5 8410-2 #### [facility] CLIA [id number] [address] [place] [address] [place] MCV (RBC) [Entitic vol] 89.2 fL Normal 80.0-100.0 [facility] Comment on above: Order Comment: Speci men Type: BLOOD SPECIMEN Ordering Facility: [facility] Address: [address] [place], [place] [id number] Performed By: #### 5 8410-2 #### [facility] CLIA [id number] [address] [place] [address] [place] Nucleated RBC (Bld) [#/Vol] 10*3/uL Normal <0.01 [facility] Comment on above: Order Comment: Speci men Type: BLOOD SPECIMEN Ordering Facility: [facility] Address: [address] Performed By: #### 5 8410-2 #### [facility] CLIA [id number] [address] [place] [address] [place] Platelet mean volume (Bld) [Entitic vol] 11.1 fL Normal 9.0-12.7 [facility] Comment on above: Order Comment: Speci men Type: BLOOD SPECIMEN Ordering Facility: [facility] Address: [address] [place] [address] Performed By: #### 5 8410-2 #### [facility] CLIA [id number] [address] [place] [address] [facility] [place] Platelets (Bld) [#/Vol] 341 10*3/uL Normal 150-400 [facility] Comment on above: Order Comment: Speci men Type: BLOOD SPECIMEN Ordering Facility: [facility] Address: [address] [place] [address] Performed By: #### 5 8410-2 #### [facility] CLIA [id number] [address] [place] [address] [place] RBC (Bld) [#/Vol] 4.92 10*6/uL Normal 3.90-5.20 [facility] Comment on above: Order Comment: Speci men Type: BLOOD SPECIMEN Ordering Facility: [facility] Address: [address] [place] [address] Performed By: #### 5 8410-2 #### [facility] CLIA [id number] [address] [place] [address] [place] WBC (Bld) [#/Vol] 7.12 10*3/uL Normal 3.70-11.00 [facility] Comment on above: Order Comment: Speci men Type: BLOOD SPECIMEN Ordering Facility: [facility] Address: [address] [place] [address] Performed By: #### 5 8410-2 #### [facility] CLIA [id number] [address] [place] [address] OF [facility] CNOVon 02-23-2023 CNOV Office Visit (PEDSWS ) ELIZABETH NUNO ([id number]) 2 F Date Time Provider Department 02/23/23 2:30 PM CLOTILDE FOX During your visit today, we recorded the following information about you: Temperature Pulse Respiration Blood pressure 98.6 degrees 60/minute 14/minute 114/62 Weight Height Last Period 79.5 kg 1.803 m 02/05/23 Clotilde Fox MD 03/07/2023 9:18 AM Signed WELL VISIT PEDIATRIC 18+ YRS OLD is a 22 year old who presents today for well exam. SUBJECTIVE CONCERNS: Recheck iron v HISTORY There is no problem list on file for this patient. PAST MEDICAL HISTORY Diagnosis Date PMH - PAST MEDICAL HISTORY OF 11/05/06 normal color vision Varicella without mention of complication 8 months old PAST SURGICAL HISTORY Procedure Laterality Date NONE UNLISTED PROCEDURE DENTOALVEOLAR STRUCTURES wisdom teeth removal ALLERGIES Allergen Reactions Amoxicillin Hives Vantin [Cefpodoxime* Medications: ferrous sulfate 325 mg (65 mg iron) tablet Take 1 tablet every other day (or Mon/Wed/Fri). Take with food to minimize GI upset. Take with vitamin C for better absorption. fluticasone (FLONASE) 50 mcg/actuation nasal spray INSTILL 1 SPRAY INTO EACH NOSTRIL 2 (TWO) TIMES A DAY FOR 28 DAYS (Patient not taking: Reported on 05/30/2022) FAMILY HISTORY Problem Relation Age of Onset Asthma Brother Asthma Maternal Grandmother Cancer Paternal Grandfather Colon Cancer No Family History Social History Social History Narrative Not on file Smoking Exposure: Do you spend a significant amount of time with anyone who smokes? No School: Presently in College. Any concerns regarding peer interactions? No Physical Activity: more than 1 hour of physical activity per day Recreational Screen Time totaling less than 2 hours of screen time per day. Fainting, dizziness, significant shortness of breath or chest pain with sports or exercise: No History of concussion in the last year: No Safety: Reviewed seat belts and bike helmets Diet: -Eats 2-3 meals a day, 2-3 snacks -Typically drinks water -Eats fruits and vegetables Elimination: no concerns, normal size and consistency Dental: dental care not current Sleep: -no sleep concerns VISUAL ACUITY: Today's exam: Vision Correction? Contacts: RIGHT EYE: 20/20 LEFT EYE: 20/ 20 Vision: No vision concerns, wears contacts, see's an eye doctor Hearing: No hearing concerns Growth: No growth concerns Gynecological history: LMP: 02/05/23 Cycles are regular and last 5-7 days. Dysmenorrhea: none Heavy periods: no Substance use: none Sexual History: Attraction: male Sexually Active: No Body image: satisfactory Screening tools reviewed and discussed with patient/lzgaml-ODY-0. Please see Patient Entered Data. PHQ-9 = 1 OBJECTIVE Physical Exam: BP 114/62 Pulse 60 Temp 37 ?C (98.6 ?F) (Temporal) Resp 14 Ht 180.3 cm (5' 10.98) Wt 79.5 kg (175 lb 3.2 oz) LMP 02/05/2023 (Exact Date) BMI 24.45 kg/m? Blood pressure %elizabeth are not available for patients who are 18 years or older. Blood pressure %elizabeth are not available for patients who are 18 years or older. Normalized BMI data available only for age 0 to 20 years. Last BMI: Wt: 82.8 kg (182 lb 9.6 oz) BMI: 25.47 kg/(m2) Last 4 Encounter Wt Readings: Date: Wt: 05/30/2022 82.8 kg (182 lb 9.6 oz) 04/21/2022 82.4 kg (181 lb 12 oz) 02/20/2022 74.8 kg (165 lb) 01/30/2022 77.6 kg (171 lb) Last 4 Encounter Ht Readings: Date: Ht: 02/20/2022 180.3 cm (5' 11) 01/28/2021 180.8 cm (5' 11.18) (>99 %, Z= 2.72)* 01/17/2020 180.3 cm (5' 11) (>99 %, Z= 2.66)* 05/31/2019 179.8 cm (5' 10.79) (>99 %, Z= 2.59)* General: alert and active in no apparent distress Head: Normocephalic, atraumatic Eyes: Steady central gaze without nystagmus. Conjunctiva clear without injection or discharge. Ears: External ears normal. Canals clear. Tympanic membranes are intact bilaterally without evidence of fluid in the middle ear space Nose/Sinuses: Nares normal. Septum midline. Mucosa normal. No drainage or sinus tenderness. Oropharynx: Tonsils are 1+. Uvula is midline and the oropharynx is symmetrical Neck: No masses and the suprasternal notch, no supraclavicular adenopathy, supple, no adenopathy Thyroid: no masses or nodules present Heart: Regular Rate and Rhythm without murmurs or clicks, femoral and radial pulses are normal.PMI normal Lungs: clear to auscultation. No wheezes or rales.Chest AP diameter normal. Abdomen: Abdomen is soft, nontender, without organomegaly or masses. Musculoskeletal: Extremities with FROM and no problems identified. Bilateral shoulder, elbow and wrist exams are within normal limits. Bilateral hip, knee and ankle examinations are within normal limits. Neurological: Muscle tone normal, Awake, alert and oriented x 3, Crania (more content not included)... Normal [facility] Ferritin SerPl-mCncon 2022 Ferritin [Mass/Vol] 18.5 ng/mL Normal 14.7-205.1 [facility] Comment on above: Order Comment: Speci men Type: BLOOD SPECIMEN Ordering Facility: [facility] Address: [address] [address] Performed By: #### 5 0189-0, 2275-10 #### [facility] CLIA [id number] [address] [place] [address] [place] bilirubin panel [Ma ss/Vol]on 02-23-2023 Bilirubin [Mass/Vol] 2.5 mg/dL High 0.2-1.3 [facility] Comment on above: Order Comment: Specmirela mcnulty Type: BLOOD SPECIMEN Ordering Facility: [facility] Address: [address] [id number] Performed By: #### 5 0189-0, 2275-10 #### [facility] CLIA [id number] [facility] [place] [address] [place] Bilirubin.conjugated [Mass/Vol] 1.7 mg/dL High <0.2 [facility] Comment on above: Order Comment: Speci men Type: BLOOD SPECIMEN Ordering Facility: [facility] Address: [address] [address] Performed By: #### 5 0189-0, 2276-4 #### [facility] CLIA [id number] [address] [place] [address] [place] Bilirubin.indirect [Mass/Vol] 0.8 mg/dL Normal <1.4 [facility] Comment on above: Order Comment: Speci men Type: BLOOD SPECIMEN Ordering Facility: [facility] Address: [address] [address] Performed By: #### 5 0189-0, 2276-4 #### [facility] CLIA [id number] [facility] [place] [address] [place] UA DIP, URINE (POC)on 2022 BILIRUBIN UA (POCT) Small Abnormal Negative [facility] CLARITY UA (POCT) Clear [facility] COLOR UA (POCT) Dark yellow [facility] GLUCOSE UA (POCT) Negative Negative mg/dL [facility] Hemoglobin Ql (U) Negative Negative [facility] KETONE UA (POCT) Trace Negative mg/dL [facility] LEUKOCYTES UA (POCT) Moderate Abnormal Negative [facility] NITRITE UA (POCT) Negative Negative [facility] PH UA (POCT) 6.5 4.5 - 8.0 [facility] Protein Ql (U) Negative Negative mg/dL [facility] SPECIFIC GRAVITY UA (POCT) 1.020 1.005 - 1.030 [facility] UROBILINOGEN UA (POCT) 0.2 E.U./dL Chloe l E.U./dL [facility] CNOVon 05-30-2022 CNOV Office Visit (PEDSWS ) ELIZABETH NUNO ([id number]) 2 F Date Time Provider Department 05/30/22 9:00 AM IRMA JAY During your visit today, we recorded the following information about you: Temperature Pulse Respiration Blood pressure 97.3 degrees 64/minute 14/minute 118/70 Weight Last Period 82.8 kg 05/30/22 Irma Jay APRN.FOAM CASTER 05/30/2022 9:42 AM Signed PEDIATRIC SICK VISIT SERVICE DATE: 05/30/2022 SUBJECTIVE: Elizabeth Nuno is a 21 year old presenting to clinic for follow up medication check. Patient presents with: Follow up : Medication Check Patient was seen in clinic 04/21/22 and started on iron supplementation for iron deficiency that was found when labs were ordered by GI. Ferritin was low, 12.3 She did not have anemia. Patient denies excessive fatigue or other symptoms. She has recent hx of URI and reports mild intermittent cough. History was obtained from: patient HISTORY: There is no problem list on file for this patient. PAST MEDICAL HISTORY Diagnosis Date PMH - PAST MEDICAL HISTORY OF 11/05/06 normal color vision Varicella without mention of complication 8 months old PAST SURGICAL HISTORY Procedure Laterality Date NONE UNLISTED PROCEDURE DENTOALVEOLAR STRUCTURES wisdom teeth removal Allergies: ALLERGIES Allergen Reactions Amoxicillin Hives Vantin [Cefpodoxime* Medications: ferrous sulfate 325 mg (65 mg iron) tablet Take 1 tablet every other day (or Mon/Wed/Fri). Take with food to minimize GI upset. Take with vitamin C for better absorption. Clindamycin-Benzoyl Peroxide (BENZACLIN) 1-5 % gel Apply to affected area twice daily. fluticasone (FLONASE) 50 mcg/actuation nasal spray INSTILL 1 SPRAY INTO EACH NOSTRIL 2 (TWO) TIMES A DAY FOR 28 DAYS (Patient not taking: Reported on 05/30/2022) OBJECTIVE: BP 118/70 Pulse 64 Temp 36.3 ?C (97.3 ?F) (Temporal) Resp 14 Wt 82.8 kg (182 lb 9.6 oz) LMP 05/30/2022 (Exact Date) BMI 25.47 kg/m? General: well appearing, alert and active in no apparent distress Eyes: conjunctiva clear, PERRL Ears: TMs translucent bilaterally, normal landmarks noted Nose: no rhinorrhea, no mucosal edema OP: no lesions, no erythema Neck: supple, no adenopathy Lungs: clear to auscultation bilaterally, good air exchange, no wheezes CVS: Normal rate, regular rhythm, no murmur Skin: No rashes, lesions or skin changes ASSESSMENT/PLAN: Encounter Diagnosis ICD-10-CM 1. History of iron deficiency Z86.39 - At last visit, 04/21/22, ferritin was low, 12.3, with no anemia. Repeat labs done 05/27/22 show ferritin increased to 24.7, with no anemia. - Continue iron supplementation Mon/Wed/Fri for total of 3 months treatment (Discontinue around 07/22/22) - Recommend iron-rich diet - Return to clinic as needed for well care or for any concerns. SIGNATURE: Irma Jay APRN.CNP PATIENT NAME: Elizabeth Nuno DATE: May 30, 2022 TIME: 9:10 AM Irma Jay APRN.YANA 05/30/2022 9:21 AM Signed - Continue iron supplement Mon/Wed/Fri for total of 3 months treatment (until around 07/22/22) - Continue with iron-rich diet Allergies As of Date: 05/30/2022 Noted Allergy Reaction AMOXICILLIN 03/03/2013 4 - Hives VANTIN (CEFPODOXIME PROXETIL) 09/24/2005 Date Reviewed: 05/30/2022 Reviewed by: Irma Jay APRN.FOAM CASTER - Fully Assessed Reason for Visit: Follow up [Other] Cmt: Medication Check Primary Visit Diagnosis:History of iron deficiency [Z86.39] Prescriptions as of 05/30/2022 - ferrous sulfate 325 mg (65 mg iron) tablet Take 1 tablet every other day (or Mon/Wed/Fri). Take with food to minimize GI upset. Take with vitamin C for better absorption. - fluticasone (FLONASE) 50 mcg/actuation nasal spray INSTILL 1 SPRAY INTO EACH NOSTRIL 2 (TWO) TIMES A DAY FOR 28 DAYS - Clindamycin-Benzoyl Peroxide (BENZACLIN) 1-5 % gel Apply to affected area twice daily. Problem List As Of Date: 05/30/2022 (None) Other instructions from your clinician: - Continue iron supplement Mon/Wed/Fri for total of 3 months treatment (until around 07/22/22) - Continue with iron-rich diet Disposition: Return if symptoms worsen or fail to improve. Follow-up and Disposition History for Encounter Date Provider Department Center 05/30/2022 [id number] JAY [facility] Encounter Status:Closed by IRMA JAY on 05/30/22 Normal [facility] CBC W Auto Differential pane l (Bld)on 05-27-2022 Basophils (Bld) [#/Vol] 0.06 10*3/uL Normal <0.11 [facility] Comment on above: Order Comment: Speci men Type: BLOOD SPECIMEN Ordering Facility: [facility] Address: [address] [place] [address] Performed By: #### 5 7021-8 #### [facility] CLIA [id number] [address] [place] [address] [place] Basophils/100 WBC (Bld) 0.9 % Normal [facility] Comment on above: Order Comment: Speci men Type: BLOOD SPECIMEN Ordering Facility: [facility] Address: [address] [place] [address] Performed By: #### 5 7021-8 #### [facility] CLIA [id number] [address] [place] [address] [place] Differential cell count method Nom (Bld) Auto Normal [facility] Comment on above: Order Comment: Speci men Type: BLOOD SPECIMEN Ordering Facility: [facility] Address: [address] [place] [address] Performed By: #### 5 7021-8 #### [facility] CLIA [id number] [address] [place] [address] [place] Eosinophils (Bld) [#/Vol] 0.06 10*3/uL Normal <0.46 [facility] Comment on above: Order Comment: Speci men Type: BLOOD SPECIMEN Ordering Facility: [facility] Address: [address] Performed By: #### 5 7021-8 #### [facility] CLIA [id number] [address] [place] [address] [place] Eosinophils/100 WBC (Bld) 0.9 % Normal [facility] Comment on above: Order Comment: Speci men Type: BLOOD SPECIMEN Ordering Facility: [facility] Address: [address] Performed By: #### 5 7021-8 #### [facility] CLIA [id number] [address] [place] [address] [place] Erythrocyte distribution width (RBC) [Ratio] 12.6 % Normal 11.5-15.0 [facility] Comment on above: Order Comment: Speci men Type: BLOOD SPECIMEN Ordering Facility: [facility] Address: [address] Performed By: #### 5 7021-8 #### [facility] CLIA [id number] [address] [place] [address] [place] Hematocrit (Bld) [Volume fraction] 43.3 % Normal 36.0-46.0 [facility] Comment on above: Order Comment: Speci men Type: BLOOD SPECIMEN Ordering Facility: [facility] Address: [address] [place] [address] Performed By: #### 5 7021-8 #### [facility] CLIA [id number] [address] [place] [address] [place] Hemoglobin (Bld) [Mass/Vol] 14.2 g/dL Normal 11.5-15.5 [facility] Comment on above: Order Comment: Speci men Type: BLOOD SPECIMEN Ordering Facility: [facility] Address: [address] Performed By: #### 5 7021-8 #### [facility] CLIA [id number] [address] [place] [address] [place] Immature granulocytes (Bld) [#/Vol] 10*3/uL Normal <0.10 [facility] Comment on above: Order Comment: Speci men Type: BLOOD SPECIMEN Ordering Facility: [facility] Address: [address] [address] Performed By: #### 5 7021-8 #### [facility] CLIA [id number] [address] [place] [address] [place] Immature granulocytes/100 WBC (Bld) 0.3 % Normal [facility] Comment on above: Order Comment: Speci men Type: BLOOD SPECIMEN Ordering Facility: [facility] Address: [address] [place], [place] [address] Performed By: #### 5 7021-8 #### [facility] CLIA [id number] [address] [place] [address] [place] Lymphocytes (Bld) [#/Vol] 2.32 10*3/uL Normal 1.00-4.00 [facility] Comment on above: Order Comment: Speci men Type: BLOOD SPECIMEN Ordering Facility: [facility] Address: [address] [place], [place] [address] Performed By: #### 5 7021-8 #### [facility] CLIA [id number] [address] [place] [address] [place] Lymphocytes/100 WBC (Bld) 35.7 % Normal [facility] Comment on above: Order Comment: Speci men Type: BLOOD SPECIMEN Ordering Facility: [facility] Address: [address] [place], [place] [address] Performed By: #### 5 7021-8 #### [facility] CLIA [id number] [address] [place] [address] [place] MCH (RBC) [Entitic mass] 29.5 pg Normal 26.0-34.0 [facility] Comment on above: Order Comment: Speci men Type: BLOOD SPECIMEN Ordering Facility: [facility] Address: [address] Performed By: #### 5 7021-8 #### [facility] CLIA [id number] [address] [place] [address] [place] MCHC (RBC) [Mass/Vol] 32.8 g/dL Normal 30.5-36.0 [facility] Comment on above: Order Comment: Speci men Type: BLOOD SPECIMEN Ordering Facility: [facility] Address: [address] [place], [place] [address] Performed By: #### 5 7021-8 #### [facility] CLIA [id number] [address] [place] [address] [place] MCV (RBC) [Entitic vol] 90.0 fL Normal 80.0-100.0 [facility] Comment on above: Order Comment: Speci men Type: BLOOD SPECIMEN Ordering Facility: [facility] Address: [address] Performed By: #### 5 7021-8 #### [facility] CLIA [id number] [address] [place] [address] [place] Monocytes (Bld) [#/Vol] 0.57 10*3/uL Normal <0.87 [facility] Comment on above: Order Comment: Speci men Type: BLOOD SPECIMEN Ordering Facility: [facility] Address: [address] [place], [place] [address] Performed By: #### 5 7021-8 #### [facility] CLIA [id number] [address] [place] [address] [place] Monocytes/100 WBC (Bld) 8.8 % Normal [facility] Comment on above: Order Comment: Speci men Type: BLOOD SPECIMEN Ordering Facility: [facility] Address: [address] [place], [place] [address] Performed By: #### 5 7021-8 #### [facility] CLIA [id number] [address] [place] [address] [place] Neutrophils (Bld) [#/Vol] 3.46 10*3/uL Normal 1.45-7.50 [facility] Comment on above: Order Comment: Speci men Type: BLOOD SPECIMEN Ordering Facility: [facility] Address: [address] [place] [address] Performed By: #### 5 7021-8 #### [facility] CLIA [id number] [address] [place] [address] [place] Neutrophils/100 WBC (Bld) 53.4 % Normal [facility] Comment on above: Order Comment: Speci men Type: BLOOD SPECIMEN Ordering Facility: [facility] Address: [address] [place], [place] [address] Performed By: #### 5 7021-8 #### [facility] CLIA [id number] [address] [place] [address] [place] Nucleated RBC (Bld) [#/Vol] 10*3/uL Normal <0.01 [facility] Comment on above: Order Comment: Speci men Type: BLOOD SPECIMEN Ordering Facility: [facility] Address: [address] [place], [place] [address] Performed By: #### 5 7021-8 #### [facility] CLIA [id number] [facility] [place] [address] [place] Nucleated RBC/100 WBC (Bld) [Ratio] 0.0 /100 WBC Normal [facility] Comment on above: Order Comment: Speci men Type: BLOOD SPECIMEN Ordering Facility: [facility] Address: [address] [place], [place] [address] Performed By: #### 5 7021-8 #### [facility] CLIA [id number] [address] [place] [address] [place] Platelet mean volume (Bld) [Entitic vol] 10.9 fL Normal 9.0-12.7 [facility] Comment on above: Order Comment: Speci men Type: BLOOD SPECIMEN Ordering Facility: [facility] Address: [address] [place], [place] [address] Performed By: #### 5 7021-8 #### [facility] CLIA [id number] [address] [place] [address] [place] Platelets (Bld) [#/Vol] 300 10*3/uL Normal 150-400 [facility] Comment on above: Order Comment: Speci men Type: BLOOD SPECIMEN Ordering Facility: [facility] Address: [address] [place], [place] [address] Performed By: #### 5 7021-8 #### [facility] CLIA [id number] [address] [place] [address] [place] RBC (Bld) [#/Vol] 4.81 10*6/uL Normal 3.90-5.20 [facility] Comment on above: Order Comment: Speci men Type: BLOOD SPECIMEN Ordering Facility: [facility] Address: [address] [place], [place] [address] Performed By: #### 5 7021-8 #### [facility] CLIA [id number] [address] [place] [address] [place] WBC (Bld) [#/Vol] 6.49 10*3/uL Normal 3.70-11.00 [facility] Comment on above: Order Comment: Speci men Type: BLOOD SPECIMEN Ordering Facility: [facility] Address: [address] [place], [place] [address] Performed By: #### 5 7021-8 #### [facility] CLIA [id number] [address] [place] [address] [place] Ferritin SerPl-mCncon 2021 Ferritin [Mass/Vol] 24.7 ng/mL Normal 14.7-205.1 [facility] Comment on above: Order Comment: Speci men Type: BLOOD SPECIMEN Ordering Facility: [facility] Address: [address] [address] Performed By: #### 5 0189-0, 2275-4 #### [facility] CLIA [id number] [address] [place] [address] [place] Iron and Iron binding capaci ty panelon 05-27-2022 Iron [Mass/Vol] 130 ug/dL Normal 41-186 [facility] Comment on above: Order Comment: Speci men Type: BLOOD SPECIMEN Ordering Facility: [facility] Address: [address] [place] [address] Performed By: #### 5 0189-0, 2275-4 #### [facility] CLIA [id number] [address] [place] [address] [place] Iron binding capacity [Mass/Vol] 348 ug/dL Normal 232-386 [facility] Comment on above: Order Comment: Speci men Type: BLOOD SPECIMEN Ordering Facility: [facility] Address: [address] [place] [address] Performed By: #### 5 0189-0, 2275-4 #### [facility] CLIA [id number] [address] [place] [address] [place] Iron/TIBC [Molar ratio] 37.4 % Normal 15.0-57.0 [facility] Comment on above: Order Comment: Speci men Type: BLOOD SPECIMEN Ordering Facility: [facility] Address: [address] [place] [address] Performed By: #### 5 0189-0, 2275-4 #### [facility] CLIA [id number] [address] [place] [address] [place] CBC W Auto Differential pane l (Bld)on 04-21-2022 Basophils (Bld) [#/Vol] 0.06 10*3/uL Normal <0.11 [facility] Comment on above: Order Comment: Speci men Type: BLOOD SPECIMEN Ordering Facility: [facility] Address: [address] [place] [address] Performed By: #### 5 7021-8 #### [facility] CLIA [id number] [address] [place] [address] [place] Basophils/100 WBC (Bld) 1.3 % Normal [facility] Comment on above: Order Comment: Speci men Type: BLOOD SPECIMEN Ordering Facility: [facility] Address: [address] [place], [place] [address] Performed By: #### 5 7021-8 #### [facility] CLIA [id number] [address] [place] [address] [place] Differential cell count method Nom (Bld) Auto Normal [facility] Comment on above: Order Comment: Speci men Type: BLOOD SPECIMEN Ordering Facility: [facility] Address: [address] [place], [place] [address] Performed By: #### 5 7021-8 #### [facility] CLIA [id number] [address] [place] [address] [place] Eosinophils (Bld) [#/Vol] 0.07 10*3/uL Normal <0.46 [facility] Comment on above: Order Comment: Speci men Type: BLOOD SPECIMEN Ordering Facility: [facility] Address: [address] [place] [address] Performed By: #### 5 7021-8 #### [facility] CLIA [id number] [address] [place] [address] [place] Eosinophils/100 WBC (Bld) 1.5 % Normal [facility] Comment on above: Order Comment: Speci men Type: BLOOD SPECIMEN Ordering Facility: [facility] Address: [address] [place] [address] Performed By: #### 5 7021-8 #### [facility] CLIA [id number] [address] [place] [address] [place] Erythrocyte distribution width (RBC) [Ratio] 12.6 % Normal 11.5-15.0 [facility] Comment on above: Order Comment: Speci men Type: BLOOD SPECIMEN Ordering Facility: [facility] Address: [address] [place] [address] Performed By: #### 5 7021-8 #### [facility] CLIA [id number] [address] [place] [address] [place] Hematocrit (Bld) [Volume fraction] 40.7 % Normal 36.0-46.0 [facility] Comment on above: Order Comment: Speci men Type: BLOOD SPECIMEN Ordering Facility: [facility] Address: [address] [place] [address] Performed By: #### 5 7021-8 #### [facility] CLIA [id number] [address] [place] [address] [place] Hemoglobin (Bld) [Mass/Vol] 12.9 g/dL Normal 11.5-15.5 [facility] Comment on above: Order Comment: Speci men Type: BLOOD SPECIMEN Ordering Facility: [facility] Address: [address] [place], [place] [address] Performed By: #### 5 7021-8 #### [facility] CLIA [id number] [address] [place] [address] [place] Immature granulocytes (Bld) [#/Vol] 10*3/uL Normal <0.10 [facility] Comment on above: Order Comment: Speci men Type: BLOOD SPECIMEN Ordering Facility: [facility] Address: [address] [place], [place] [address] Performed By: #### 5 7021-8 #### [facility] CLIA [id number] [address] [place] [address] [place] Immature granulocytes/100 WBC (Bld) 0.2 % Normal [facility] Comment on above: Order Comment: Speci men Type: BLOOD SPECIMEN Ordering Facility: [facility] Address: [address] [place], [place] [address] Performed By: #### 5 7021-8 #### [facility] CLIA [id number] [address] [place] [address] [place] Lymphocytes (Bld) [#/Vol] 2.26 10*3/uL Normal 1.00-4.00 [facility] Comment on above: Order Comment: Speci men Type: BLOOD SPECIMEN Ordering Facility: [facility] Address: [address] [place], [place] [address] Performed By: #### 5 7021-8 #### [facility] CLIA [id number] [address] [place] [address] [place] Lymphocytes/100 WBC (Bld) 47.9 % Normal [facility] Comment on above: Order Comment: Speci men Type: BLOOD SPECIMEN Ordering Facility: [facility] Address: [address] [place], [place] [address] Performed By: #### 5 7021-8 #### [facility] CLIA [id number] [address] [place] [address] [place] MCH (RBC) [Entitic mass] 28.7 pg Normal 26.0-34.0 [facility] Comment on above: Order Comment: Speci men Type: BLOOD SPECIMEN Ordering Facility: [facility] Address: [address] [place] [address] Performed By: #### 5 7021-8 #### [facility] CLIA [id number] [address] [place] [address] [place] MCHC (RBC) [Mass/Vol] 31.7 g/dL Normal 30.5-36.0 [facility] Comment on above: Order Comment: Speci men Type: BLOOD SPECIMEN Ordering Facility: [facility] Address: [address] [place] [address] Performed By: #### 5 7021-8 #### [facility] CLIA [id number] [address] [place] [address] [place] MCV (RBC) [Entitic vol] 90.6 fL Normal 80.0-100.0 [facility] Comment on above: Order Comment: Speci men Type: BLOOD SPECIMEN Ordering Facility: [facility] Address: [address] [place] [address] Performed By: #### 5 7021-8 #### [facility] CLIA [id number] [address] [place] [address] [place] Monocytes (Bld) [#/Vol] 0.42 10*3/uL Normal <0.87 [facility] Comment on above: Order Comment: Speci men Type: BLOOD SPECIMEN Ordering Facility: [facility] Address: [address] [place] [address] Performed By: #### 5 7021-8 #### [facility] CLIA [id number] [address] [place] [address] [place] Monocytes/100 WBC (Bld) 8.9 % Normal [facility] Comment on above: Order Comment: Speci men Type: BLOOD SPECIMEN Ordering Facility: [facility] Address: [address] [place] [address] Performed By: #### 5 7021-8 #### [facility] CLIA [id number] [address] [place] [address] [place] Neutrophils (Bld) [#/Vol] 1.90 10*3/uL Normal 1.45-7.50 [facility] Comment on above: Order Comment: Speci men Type: BLOOD SPECIMEN Ordering Facility: [facility] Address: [address] [place] [address] Performed By: #### 5 7021-8 #### [facility] CLIA [id number] [address] [place] [address] [place] Neutrophils/100 WBC (Bld) 40.2 % Normal [facility] Comment on above: Order Comment: Speci men Type: BLOOD SPECIMEN Ordering Facility: [facility] Address: [address] [place] [address] Performed By: #### 5 7021-8 #### [facility] CLIA [id number] [address] [place] [address] [place] Nucleated RBC (Bld) [#/Vol] 10*3/uL Normal <0.01 [facility] Comment on above: Order Comment: Speci men Type: BLOOD SPECIMEN Ordering Facility: [facility] Address: [address] [place] [address] Performed By: #### 5 7021-8 #### [facility] CLIA [id number] [address] [place] [address] [place] Nucleated RBC/100 WBC (Bld) [Ratio] 0.0 /100 WBC Normal [facility] Comment on above: Order Comment: Speci men Type: BLOOD SPECIMEN Ordering Facility: [facility] Address: [address] [place] [address] Performed By: #### 5 7021-8 #### [facility] CLIA [id number] [address] [place] [address] [place] Platelet mean volume (Bld) [Entitic vol] 10.8 fL Normal 9.0-12.7 [facility] Comment on above: Order Comment: Speci men Type: BLOOD SPECIMEN Ordering Facility: [facility] Address: [address] [place] [address] Performed By: #### 5 7021-8 #### [facility] CLIA [id number] [address] [place] [address] [place] Platelets (Bld) [#/Vol] 351 10*3/uL Normal 150-400 [facility] Comment on above: Order Comment: Speci men Type: BLOOD SPECIMEN Ordering Facility: [facility] Address: [address] [place] [address] Performed By: #### 5 7021-8 #### [facility] [place] [id number] [address] [place] [address] [place] RBC (Bld) [#/Vol] 4.49 10*6/uL Normal 3.90-5.20 [facility] Comment on above: Order Comment: Speci men Type: BLOOD SPECIMEN Ordering Facility: [facility] Address: [address] [place] [address] Performed By: #### 5 7021-8 #### [facility] [place] [id number] [address] [place] [address] [place] WBC (Bld) [#/Vol] 4.72 10*3/uL Normal 3.70-11.00 [facility] Comment on above: Order Comment: Speci men Type: BLOOD SPECIMEN Ordering Facility: [facility] Address: [address] [place] [address] Performed By: #### 5 7021-8 #### [facility] [place] [id number] [address] [place] [address] [place] CNOVon 04-21-2022 CNOV Office Visit (PEDSWS ) ELIZABETH NUNO ([id number]) 2 F Date Time Provider Department 04/21/22 8:45 AM IRMA JAY During your visit today, we recorded the following information about you: Temperature Pulse Respiration Blood pressure 97.6 degrees 68/minute 12/minute 128/82 Weight 82.4 kg Irma Jay APRN.FOAM CASTER 04/21/2022 12:53 PM Signed PEDIATRIC SICK VISIT SERVICE DATE: 04/21/2022 SUBJECTIVE: Elizabeth Nuno is a 21 year old female presenting to clinic for evaluation of low ferritin levels. Patient is being evaluated by GI for bilirubinuria found incidentally with UA done at outside urgent care clinic. Ferritin was ordered by GI and was low, 12.3. CBC was not done at this time. 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 PAST MEDICAL HISTORY Diagnosis Date PMH - PAST MEDICAL HISTORY OF 11/05/06 normal color vision Varicella without mention of complication 8 months old PAST SURGICAL HISTORY Procedure Laterality Date NONE UNLISTED PROCEDURE DENTOALVEOLAR STRUCTURES wisdom teeth removal Allergies: ALLERGIES Allergen Reactions Amoxicillin Hives Vantin [Cefpodoxime* Medications: Clindamycin-Benzoyl Peroxide (BENZACLIN) 1-5 % gel Apply to affected area twice daily. ferrous sulfate 325 mg (65 mg iron) tablet Take 1 tablet every other day (or Mon/Wed/Fri). Take with food to minimize GI upset. Take with vitamin C for better absorption. fluticasone (FLONASE) 50 mcg/actuation nasal spray INSTILL 1 SPRAY INTO EACH NOSTRIL 2 (TWO) TIMES A DAY FOR 28 DAYS REVIEW OF SYSTEMS: GENERAL: Positive for intermittent dizziness, Negative for fevers HEENT: Negative for congestion or rhinorrhea. RESPIRATORY: Negative for cough, wheezing or respiratory distress GI: Negative for vomiting or diarrhea. SKIN: Negative for lesions, rash, and itching. OBJECTIVE: BP 128/82 Pulse 68 Temp 36.4 ?C (97.6 ?F) (Temporal Artery) Resp 12 Wt 82.4 kg (181 lb 12 oz) LMP 01/23/2022 (Exact Date) BMI 25.35 kg/m? General: well appearing, alert and active in no apparent distress Eyes: conjunctiva clear, PERRL Ears: TMs translucent: bilaterally TMs clear: bilaterally Nose: no erythema or exudate OP: no lesions, no erythema Neck: supple, no adenopathy Lungs: clear to auscultation bilaterally, good air exchange, no retractions CVS: Normal rate, regular rhythm, no murmur Skin: No rashes, lesions or skin changes ASSESSMENT/PLAN: Encounter Diagnosis ICD-10-CM 1. Iron deficiency anemia, unspecified iron deficiency anemia type D50.9 CBC + DIFF CBC + DIFF FERRITIN BLD IRON + TIBC ferrous sulfate 325 mg (65 mg iron) tablet - Start iron tablets. Take every other day (or Thu if that's easier to remember). Take with food to mimimize GI upset. - Take with Vitamin C for better absorption (orange juice) - Eat iron rich foods - Return to clinic in about 6 weeks for follow up. If you can, you can come to the lab before your appt to complete repeat labs. I will order them now. SIGNATURE: Irma Jay APRN.CNP PATIENT NAME: Elizabeth Nuno DATE: April 21, 2022 TIME: 8:55 AM Irma Jay APRN.CNP 04/21/2022 9:13 AM Signed - Start iron tablets. Take every other day (or Thu if that's easier to remember). Take with food to mimimize GI upset. - Take with Vitamin C for better absorption (orange juice) - Eat iron rich foods - Return to clinic in about 6 weeks for follow up. If you can, you can come to the lab before your appt to complete repeat labs. I will order them now. Allergies As of Date: 04/21/2022 Noted Allergy Reaction AMOXICILLIN 03/03/2013 4 - Hives VANTIN (CEFPODOXIME PROXETIL) 09/24/2005 Date Reviewed: 04/21/2022 Reviewed by: Irma Jay APRN.CNP - Fully Assessed Reason for Visit: Discuss lab work [Other] Cmt: Abnormal ferritin results noted from Dr. Pichardo Primary Visit Diagnosis:Iron deficiency anemia, unspecified iron deficiency anemia type [D50.9] Order(s):CBC + DIFF [SQCBCDIF] Order #: [id number] FUTURE CBC + DIFF [SQCBCDIF] Order #: [id number] FUTURE FERRITIN BLD [SQFERR] Order #: [id number] FUTURE IRON + TIBC [SQIRON] Order #: [id number] FUTURE ferrous sulfate 325 mg (65 mg iron) tabletTake 1 tablet every other day (or Mon/Wed/Fri). Take with food to minimize GI upset. Take with vitamin C for better absorption.Disp: 90 tabletRfl: 0 Prescriptions as of 04/21/2022 - ferrous sulfate 325 mg (65 mg iron) tablet Take 1 tablet every other day (or Mon/Wed/Fri). Take with food to minimize GI upset. Take with vitamin C for better absorption. - flutic (more content not included)... Normal [facility] Comprehensive metabolic 2000 panelon 04-21-2022 Albumin [Mass/Vol] 4.6 g/dL Normal 3.9-4.9 [facility] Comment on above: Order Comment: Speci men Type: BLOOD SPECIMEN Ordering Facility: [facility] Address: [address] [place] [address] Performed By: #### 2 4323-8 #### [facility] CLIA [id number] [address] [place] [address] [place] ALP [Catalytic activity/Vol] 63 U/L Normal 34-123 [facility] Comment on above: Order Comment: Speci men Type: BLOOD SPECIMEN Ordering Facility: [facility] Address: [address] [place] [address] Performed By: #### 2 4323-8 #### [facility] CLIA [id number] [address] [place] [address] [place] ALT [Catalytic activity/Vol] 12 U/L Normal 7-38 [facility] Comment on above: Order Comment: Speci men Type: BLOOD SPECIMEN Ordering Facility: [facility] Address: [address] Performed By: #### 2 4323-8 #### [facility] CLIA [id number] [address] [place] [address] [place] Anion gap [Moles/Vol] 11 mmol/L Normal 9-18 [facility] Comment on above: Order Comment: Speci men Type: BLOOD SPECIMEN Ordering Facility: [facility] Address: [address] [place], [place] [address] Performed By: #### 2 4323-8 #### [facility] CLIA [id number] [address] [place] [address] [place] AST [Catalytic activity/Vol] 19 U/L Normal 13-35 [facility] Comment on above: Order Comment: Speci men Type: BLOOD SPECIMEN Ordering Facility: [facility] Address: [address] [place], [place] [address] Performed By: #### 2 4323-8 #### [facility] CLIA [id number] [address] [place] [address] [place] Bilirubin [Mass/Vol] 2.6 mg/dL High 0.2-1.3 [facility] Comment on above: Order Comment: Speci men Type: BLOOD SPECIMEN Ordering Facility: [facility] Address: [address] [place], [place] [address] Performed By: #### 2 4323-8 #### [facility] CLIA [id number] [address] [place] [address] [place] Calcium [Mass/Vol] 9.8 mg/dL Normal 8.5-10.2 [facility] Comment on above: Order Comment: Speci men Type: BLOOD SPECIMEN Ordering Facility: [facility] Address: [address] [place] [address] Performed By: #### 2 4323-8 #### [facility] CLIA [id number] [address] [place] [address] [place] Chloride [Moles/Vol] 105 mmol/L Normal 97-105 [facility] Comment on above: Order Comment: Speci men Type: BLOOD SPECIMEN Ordering Facility: [facility] Address: [address] [place] [address] Performed By: #### 2 4323-8 #### [facility] CLIA [id number] [address] [place] [address] [place] CO2 [Moles/Vol] 24 mmol/L Normal 22-30 [facility] Comment on above: Order Comment: Speci men Type: BLOOD SPECIMEN Ordering Facility: [facility] Address: [address] [place] [address] Performed By: #### 2 4323-8 #### [facility] CLIA [id number] [address] [place] [address] [place] Creatinine [Mass/Vol] 0.84 mg/dL Normal 0.58-0.96 [facility] Comment on above: Order Comment: Speci men Type: BLOOD SPECIMEN Ordering Facility: [facility] Address: [address] [place] [address] Performed By: #### 2 4323-8 #### [facility] CLIA [id number] [address] [place] [address] OF [facility] ESTIMATED GLOMERULAR FILTRATION RATE 102 mL/min/1.73m??? Normal >=60 [facility] Comment on above: Order Comment: Speci men Type: BLOOD SPECIMEN Ordering Facility: [facility] Address: [address] [place] [address] Result Comment: Aster mated Glomerular Filtration Rate (eGFR) is calculated using the 2020 CKD-EPI creatinine equation. This equation utilizes serum creatinine, sex, and age as parameters. The creatinine assay has traceable calibration to isotope dilution-mass spectrometry. Refer to KDIGO guidelines for clinical interpretation. In patients with unstable renal function, e.g. those with acute kidney injury, the eGFR may not accurately reflect actual GFR. Performed By: #### 2 4323-8 #### [facility] CLIA [id number] [address] [place] [address] [place] Glucose [Mass/Vol] 76 mg/dL Normal 74-99 [facility] Comment on above: Order Comment: Speci men Type: BLOOD SPECIMEN Ordering Facility: [facility] Address: [address] [place] [address] Result Comment: The [place] [employer] (ADA) provides guidance for cutoff values for fasting glucose and random glucose. The ADA defines fasting as no caloric intake for at least 8 hours. Fasting plasma glucose results between 100 to 125 mg/dL indicate increased risk for diabetes (prediabetes). Fasting plasma glucose results greater than or equal to 126 mg/dL meet the criteria for diagnosis of diabetes. In the absence of unequivocal hyperglycemia, results should be confirmed by repeat testing. In a patient with classic symptoms of hyperglycemia or hyperglycemic crisis, random plasma glucose results greater than or equal to 200 mg/dL meet the criteria for diagnosis of diabetes. Reference: Standards of Medical Care in Diabetes 2016, [place] [employer]. Diabetes Care. 2016.39(Suppl 1). Performed By: #### 2 4323-8 #### [facility] CLIA [id number] [address] [place] [address] [place] Potassium [Moles/Vol] 4.6 mmol/L Normal 3.7-5.1 [facility] Comment on above: Order Comment: Speci men Type: BLOOD SPECIMEN Ordering Facility: [facility] Address: [address] [place], [place] [address] Performed By: #### 2 4323-8 #### [facility] CLIA [id number] [address] [place] [address] [place] Protein [Mass/Vol] 6.8 g/dL Normal 6.3-8.0 [facility] Comment on above: Order Comment: Speci men Type: BLOOD SPECIMEN Ordering Facility: [facility] Address: [address] [place] [address] Performed By: #### 2 4323-8 #### [facility] CLIA [id number] [address] [place] [address] [place] Sodium [Moles/Vol] 140 mmol/L Normal 136-144 [facility] Comment on above: Order Comment: Speci men Type: BLOOD SPECIMEN Ordering Facility: [facility] Address: [address] [place], [place] [address] Performed By: #### 2 4323-8 #### [facility] CLIA [id number] [address] [place] [address] [place] Urea nitrogen [Mass/Vol] 9 mg/dL Normal 7-21 [facility] Comment on above: Order Comment: Speci men Type: BLOOD SPECIMEN Ordering Facility: [facility] Address: [address] [place] [address] Performed By: #### 2 4323-8 #### [facility] CLIA [id number] [address] [place], [place] [address] [place] MRI PANC/COREY WO/W IVCONon MRI PANC/COREY WO/W IVCON * * *Final Report* * * DATE OF EXAM: Mar 13 2022 2:27PM WR 0730 - MRI PANC/COREY WO/W IVCON / PROCEDURE REASON: multiple diagnoses * * * * Physician Interpretation * * * * MRI/MRCP ABDOMEN WITHOUT AND WITH CONTRAST, WITH 3-D RECONSTRUCTIONS 03/13/2022 2:27 PM HISTORY: Elevated bilirubin Abnormal results of liver function studies TECHNIQUE: Multisequential, multiplanar MR imaging of the abdomen was performed both prior to and following the administration of intravenous gadolinium-based contrast. 3D image post-processing was performed at the request of the referring physician, on the MR scanner workstation under physician supervision. Contrast: IV: 15 mL of Dotarem COMPARISON: Abdominal ultrasound 02/14/2022 RESULT: Pancreas: No mass. No duct dilation. No divisum. Biliary: No duct dilation or filling defect. Gallbladder is unremarkable. Liver: No mass. Normal morphology. Spleen: No mass. No splenomegaly. Adrenals: No mass. Kidneys: The kidneys enhance symmetrically. No hydronephrosis. No enhancing renal mass. Misc: Visualized loops of bowel are nondistended. No abdominal lymphadenopathy. No ascites. Normal course and caliber of the abdominal aorta. Celiac axis and superior mesenteric artery are patent. Portal vein and branches, splenic vein, superior mesenteric vein and hepatic veins are patent. - - IMPRESSION: NO ACUTE PATHOLOGY. NO MASS OR LYMPHADENOPATHY. Health Social Work Professor: PATRICK Transcribe Date/Time: Mar 14 2022 9:11A Dictated by : MERCEDES HUITRON MD This examination was interpreted and the report reviewed and electronically signed by: MERCEDES HUITRON MD on Mar 14 2022 9:20AM EST [id number] Normal [facility] US ABD RT UPPER QUADRANTon 0 02-14-2022 [facility] US KIDNEY/BLADDERon 02-07-20 [facility] BILIRUBIN DIRECT Don 02-03 Bilirubin.conjugated [Mass/Vol] 1.6 mg/dL High <0.2 mg/dL [facility] BILIRUBIN TOTAL BLDon 2021 Bilirubin [Mass/Vol] 2.3 mg/dL High 0.2 - 1 .3 mg/dL [facility] CK CREATINE KINASEon 022 CK [Catalytic activity/Vol] 72 U/L 42 - 196 U/L [facility] GGT Don 02-03-2022 Gamma glutamyl transferase [Catalytic activity/Vol] 10 U/L 6 - 46 U/L [facility] Basophil percentageon 2021 Basophil percentage 0-5 SEEN /hpf 0-5 [facility] Work Phone: Bilirubin Test strip Ql (U)o n 01-29-2022 Bilirubin Ql (U) 3 mg/dL Negative [facility] Work Phone: Comment on above: COLOR OF URINE MAY A FFECT DIPSTICK RESULTS. Ketones Test strip Ql (U)on 01-29-2022 Ketones Ql (U) Negative Negative [facility] Work Phone: Laboratory - Chemistry and C hemistry - challengeon 01-29-2022 Bilirubin Ql (U) Large (3+) [facility] Work Phone: [phone] Glucose Ql (U) Negative [facility] Work Phone: [phone] Ketones Ql (U) Negative [facility] Work Phone: [phone] pH (U) 6.5 [pH] [facility] Work Phone: [phone] Specific gravity (U) [Rel density] 1.015 [facility] Work Phone: [phone] Urobilinogen (U) [Mass/Vol] Negative [facility] Work Phone: Laboratory - Hematology and Cell countson 01-29-2022 Hemoglobin Ql (U) Trace [facility] Work Phone: Laboratory - Specimen inform ationon 01-29-2022 Clarity (U) Clear [facility] Work Phone: Color (U) STRAW [facility] Work Phone: Laboratory - Urinalysison Nitrite Ql (U) Negative [facility] Work Phone: Protein Ql (U) Trace [facility] Work Phone: Mucus LM Ql (Urine sed)on Mucus Ql (Urine sed) 0 SEEN /hpf [facility] Work Phone: Nitrite Test strip Ql (U)on 01-29-2022 Nitrite Ql (U) Negative Negative [facility] Work Phone: No Panel Informationon 01-29 Urine Leukocytes Positive [facility] Work Phone: Urine Non-Hemolyzed Blood Non-Hemolyzed [facility] Work Phone: Protein Test strip Ql (U)on 01-29-2022 Protein Ql (U) Negative Negative [facility] Work Phone: Squamous epithelial cells de tection in urine sediment by light microscopyon 01-29-2022 Epithelial cells.squamous LM Ql (Urine sed) 5-10 SEEN /hpf 5-10 [facility] Work Phone: Urine blood detectionon 01-04 RBC Ql (U) 10 /ul Negative [facility] Work Phone: RBC Ql (U) 0-5 SEEN /hpf 0-5 [facility] Work Phone: Urine clarityon 01-29-2022 Clarity (U) Clear Clear [facility] Work Phone: Urine color determinationon 01-29-2022 Color (U) Rosa Yellow [facility] Work Phone: Urine glucose detectionon Glucose Ql (U) Normal mg/dl Normal [facility] Work Phone: Urine leukocyte esterase det ection by dipstickon 01-29-2022 Leukocyte esterase Test strip Ql (U) 100 /ul Negative [facility] Work Phone: Urine pHon 01-29-2022 pH (U) 6.5 [pH] 5.0 - 8.0 [facility] Work Phone: Urine sediment bacteria coun t by microscopy (number/high power field)on 01-29-2022 Bacteria LM.HPF (Urine sed) [#/Area] 2 /[HPF] None Seen [facility] Work Phone: Urine specific gravity measu rementon 01-29-2022 Specific gravity (U) [Rel density] 1.010 1.002-1.030 [facility] Work Phone: Urobilinogen Auto test strip Ql (U)on 01-29-2022 Urobilinogen Ql (U) 4 mg/dl Normal [facility] Work Phone: Office Visit: School physica debbie 01-26-2017 Documentation of current medications (procedure) Done Invalid Interpretation Code [facility] Work Phone: Documentation of current medications (procedure) T Invalid Interpretation Code [facility] Work Phone: Fall risk assessment No Invalid Interpretation Code [facility] Work Phone: Tobacco use [facility] Never smoker Invalid Interpretation Code [facility] Work Phone: Office Visiton 02-23-2010 Rapid strep test Negative Invalid Interpretation Code [facility] Work Phone: Culture, urine Bacteria identified Cx Nom (U) Mixed Gram Pos & Gram Neg Org [facility] Work Phone: Vital Signs Date Time Vital Sign Value Performing Clinician Facility 11-17-2024 12:06-0400 Body height 180.[address] Clotilde Fox MD Work Phone: [facility] 11-17-2024 12:05-0400 Diastolic blood pressure 89 mm[Hg] Dr. Clotilde Fox MD Work Phone: [phone] [place] [address] 11-17-2024 12:05-0400 Systolic blood pressure 134 mm[Hg] Dr. Clotilde Fox MD Work Phone: [phone] [place] [address] 10-07-2024 16:14-0400 Body mass index (BMI) [Ratio] 24.4 kg/m2 Dr. Clotilde Fox MD Work Phone: 1(548)340-669549 [place] [address] 10-07-2024 16:14-0400 Body weight 79.[address] Clotilde Fox MD Work Phone: [phone])770-428749 [place] [address] 10-07-2024 16:14-0400 Diastolic blood pressure 93 mm[Hg] Dr. Clotilde Fox MD Work Phone: 5(441)617-984449 [place] [address] 10-07-2024 16:14-0400 Systolic blood pressure 146 mm[Hg] Dr. Clotilde Fox MD Work Phone: 9([phone])552-102249 [place] [address] 08-05-2024 15:58-0500 Body mass index (BMI) [Ratio] 24.4 kg/m2 Dr. Clotilde Fox MD Work Phone: 7(882)627-055649 [place] [address] 08-05-2024 15:58-0500 Body weight 79.[address] Clotilde Fox MD Work Phone: 9(711)465-813849 [place] [address] 08-05-2024 15:58-0500 Diastolic blood pressure 86 mm[Hg] Dr. Clotilde Fox MD Work Phone: [phone])177-974949 [place] [address] 08-05-2024 15:58-0500 Systolic blood pressure 132 mm[Hg] Dr. Clotilde Fox MD Work Phone: [phone])657-040749 [place] [address] 02-23-2023 14:34-0400 Body height 180.3 cm Clotilde Fox MD Work Phone: [facility] 02-23-2023 14:34-0400 Body temperature 98.6 [degF] Clotilde Fox MD Work Phone: [facility] 02-23-2023 14:34-0400 Body weight 79.47 kg Clotilde Fox MD Work Phone: [phone])745-884730 [place] [address] 02-23-2023 14:34-0400 Diastolic blood pressure 62 mm[Hg] Clotilde Fox MD Work Phone: [facility] 02-23-2023 14:34-0400 Heart rate 60 /min Clotilde Fox MD Work Phone: [facility] 02-23-2023 14:34-0400 Respiratory rate 14 /min Clotilde Fox MD Work Phone: [facility] 02-23-2023 14:34-0400 Systolic blood pressure 114 mm[Hg] Clotilde Fox MD Work Phone: [facility] 05-30-2022 08:59-0500 Body temperature 97.3 [degF] Irma Jay INSTRUCTOR MODELING.FOAM CASTER Work Phone: [facility] 05-30-2022 08:59-0500 Body weight 82.83 kg Irma Jay INSTRUCTOR MODELING.FOAM CASTER Work Phone: [facility] 05-30-2022 08:59-0500 Diastolic blood pressure 70 mm[Hg] Irma Jay INSTRUCTOR MODELING.FOAM CASTER Work Phone: [facility] 05-30-2022 08:59-0500 Heart rate 64 /min Irma Jay INSTRUCTOR MODELING.FOAM CASTER Work Phone: [facility] 05-30-2022 08:59-0500 Respiratory rate 14 /min Irma Ajy INSTRUCTOR MODELING.FOAM CASTER Work Phone: [facility] 05-30-2022 08:59-0500 Systolic blood pressure 118 mm[Hg] Irma Jay INSTRUCTOR MODELING.FOAM CASTER Work Phone: [facility] 04-21-2022 08:45-0400 Body temperature 97.59 [degF] Irma Jay INSTRUCTOR MODELING.FOAM CASTER Work Phone: [facility] 04-21-2022 08:45-0400 Body weight 82.44 kg Irma Jay INSTRUCTOR MODELING.FOAM CASTER Work Phone: [facility] 04-21-2022 08:45-0400 Diastolic blood pressure 82 mm[Hg] Irma Jay INSTRUCTOR MODELING.FOAM CASTER Work Phone: [facility] 04-21-2022 08:45-0400 Heart rate 68 /min Iram Jay INSTRUCTOR MODELING.FOAM CASTER Work Phone: [facility] 04-21-2022 08:45-0400 Respiratory rate 12 /min Irma Jay INSTRUCTOR MODELING.FOAM CASTER Work Phone: [facility] 04-21-2022 08:45-0400 Systolic blood pressure 128 mm[Hg] Irma Jay INSTRUCTOR MODELING.FOAM CASTER Work Phone: [facility] 02-20-2022 10:00-0400 Body height 180.3 cm Ailyn Pichardo MD Work Phone: [facility] 02-20-2022 10:00-0400 Body weight 74.84 kg Ailyn Pichardo MD Work Phone: [facility] 02-20-2022 10:00-0400 Diastolic blood pressure 78 mm[Hg] Ailyn Pichardo MD Work Phone: [facility] 02-20-2022 10:00-0400 Heart rate 80 /min Ailyn Pichardo MD Work Phone: [facility] 02-20-2022 10:00-0400 Systolic blood pressure 112 mm[Hg] Ailyn Pichardo MD Work Phone: [facility] 01-26-2017 16:32-0400 BMI (Body Mass Index) 18.05 kg/m2 Ashleigh Caraballo LPN [facility] Clinic Work Phone: 01-26-2017 16:32-0400 Body Temperature 97.7 [degF] Ashleigh Caraballo LPN [facility] Now [facility] Work Phone: 01-26-2017 16:32-0400 BP Diastolic 68 mm[Hg] Ashleigh Caraballo LPN [facility] Work Phone: 01-26-2017 16:32-0400 BP Systolic 102 mm[Hg] Ashleigh Caraballo LPN [facility] Work Phone: 01-26-2017 16:32-0400 Height 180.34 cm Ashleigh Caraballo LPN [facility] Work Phone: 01-26-2017 16:32-0400 Pulse (Heart Rate) 86 /min Ashleigh Caraballo LPN [facility] Work Phone: 01-26-2017 16:32-0400 Respiratory Rate 12 /min Ashleigh Caraballo LPN [facility] Work Phone: 01-26-2017 16:32-0400 Weight 58.7 kg Ashleigh Caraballo LPN [facility] Work Phone: 02-23-2010 18:21-0400 Body Temperature 98.78 [degF] Ashleigh Caraballo LPN [facility] Work Phone: Encounters Encounter Date Encounter Type Care Provider Facility Start: 01-03-2025 End: 01-03-[address] Nuris Ta DO -[facility] Work Phone: Start: 01-03-2025 End: 01-03-2025 ambulatory Nuris Ta [facility] Start: 11-17-2024 End: 11-17-[address] Alisson Martell MD -[facility] Work Phone: Start: 11-17-2024 End: 11-17-[address] Clotilde Fox MD Work Phone: [facility] Work Phone: Start: 10-07-2024 End: 10-07-[address] Alisson Martell MD -[facility] Work Phone: Start: 10-07-2024 End: 10-07-2024 ambulatory Alisson Martell Facility:[facility] Start: 08-10-2024 Encounter for general adult medical examination without abnormal findings [facility] Start: 08-05-2024 End: 08-05-[address] Alisson Martell MD -[facility] Work Phone: Start: 08-05-2024 End: 08-05-[address] Alisson Martell MD [facility] Start: 08-05-2024 End: 08-05-2024 ambulatory Clotilde Fox Facility:[facility] Start: 08-05-2024 End: 08-05-2024 ambulatory Alisson Martell Facility:[facility] Start: 07-19-2024 End: 07-19-2024 [facility] Start: 07-15-[address] Clotilde Fox MD Work Phone: [facility] Start: 07-15-2024 End: 07-15-2024 ambulatory [facility] Facility:[facility] Start: 04-07-2024 ambulatory Health Risk Assessment Facility:[facility] Start: 02-23-2023 End: 02-24-2023 ambulatory CLOTILDE FOX Facility:[facility] Start: 02-23-2023 End: 02-23-2023 Patient encounter procedure Clotilde Fox MD Work Phone: [facility] [place] Comment on above: Encounter for genera l adult medical examination without abnormal findings (Primary Dx); History of iron deficiency; Serum total bilirubin elevated Start: 02-23-2023 End: 02-23-2023 Patient encounter status Clotilde Fox MD Work Phone: [facility] Work Phone: Start: 05-30-2022 End: 05-30-2022 ambulatory CLOTILDE FOX Facility:[facility] Start: 05-30-2022 End: 05-30-2022 Patient encounter procedure Irma Jay APRN.CNP Work Phone: [facility] [place] Comment on above: History of iron defi ciency (Primary Dx) Start: 05-27-2022 End: 05-27-2022 ambulatory CLOTILDE FOX Facility:[facility] Start: 04-21-2022 End: 04-21-2022 ambulatory CLOTILDE FOX Facility:[facility] Start: 04-21-2022 End: 04-21-2022 Patient encounter procedure Irma Jay APRN.FOAM CASTER Work Phone: [facility] Comment on above: Iron deficiency anem ia, unspecified iron deficiency anemia type (Primary Dx) Start: 03-13-2022 End: 03-13-2022 ambulatory AILYN PICHARDO Facility:[facility] Start: 03-13-2022 End: 03-13-2022 Subsequent hospital visit by physician [facility] (I-Stat/1.5t) Work Phone: Radiology Comment on above: Elevated bilirubin [ R17] Start: 03-06-2022 Telephone encounter Ailyn posada MD Work Phone: [facility] Comment on above: Results Start: 02-20-2022 End: 02-20-2022 Patient encounter procedure Ailyn Pichardo MD Work Phone: [facility] Comment on above: Abnormal results of liver function studies (Primary Dx); Elevated bilirubin; Right upper quadrant abdominal pain Start: 02-14-2022 End: 02-14-2022 Subsequent hospital visit by physician [facility] Work Phone: Radiology Comment on above: Serum total bilirubi n elevated [R17] Start: 02-07-2022 Patient encounter procedure Maria T Wang MD Work Phone: [facility] Start: 02-07-2022 Telephone encounter Irma rodas APRN.FOAM CASTER Work Phone: [facility] [place] Comment on above: Results Start: 02-06-2022 End: 02-06-2022 Subsequent hospital visit by physician [facility] Work Phone: Radiology Comment on above: Serum total bilirubi n elevated [R17] Start: 01-31-2022 Telephone encounter Melisa boss MD Work Phone: Pediatrics Comment on above: [facility] Results Start: 01-29-2022 End: 01-29-[address] Clotilde Fox Work Phone: [facility] Specimen Start: 01-29-2022 End: 01-29-[address] Clotilde Fox Work Phone: [facility] Procedures Date Procedure Procedure Detail Performing Clinician Start: 08-05-2024 Liquid based cervica l cytology screening Dr. Clotilde Fox MD Work Phone: Comment on above: NEGATIVE FOR INTRAEP ITHELIAL LESION OR MALIGNANCY. This liquid based Th inPrep(R) pap test was screened withthe use of an image guided system. The HPV DNA reflex c riteria were not met with this specimenresult therefore, no HPV testing was performed.Performed at: [address] [id number] Director: Franco Castro PhD, Phone: [phone] at: [facility] [id number] Director: Carla Goldstein MD, Phone: [phone] Start: 02-23-2023 Urnls dip stick/tabl et rgnt auto w/o microscopy Clotilde Fox MD Work Phone: Start: 02-14-2022 Us abdominal real ti me w/image limited Irma Jay APRN.FOAM CASTER Work Phone: Start: 02-06-2022 Us retroperitoneal r eal time w/image complete Irma Jay INSTRUCTOR MODELING.FOAM CASTER Work Phone: Start: 01-29-2022 Adult depression scr eening assessment Melisa Caballero MD Work Phone: Start: 02-23-2010 End: 02-23-2010 Rapid strep test Christine Roman MS,PA-C Urine culture Dr. Clotilde diamond Work Phone: Plan of Treatment Date Care Activity Detail Author Start: 02-25-2024 Urine microalbumin profile DTA P,TDAP,TD (6 - Td or Tdap) [facility] Start: 03-06-2023 Influenza vaccination INFLUENZA (#1) [facility] Start: 01-29-2023 Adult depression scr eening assessment DEPRESSION SCREENING [facility] Start: 2022 PAP TESTING PAP TESTING [facility] Start: 07-06-2022 DEPRESSION ASSESSMENT DEPRESSION ASS ESSMENT [facility] Start: 05-22-2022 End: 07-22-2022 CBC W Auto Differential panel - Blood CBC + DIFF Lab Routine Iron deficiency anemia, unspecified iron deficiency anemia type Expected: 05/22/2022, Expires: 07/22/2022 [facility] Work Phone: Comment on above: Expected: 05/22/2022 , Expires: 07/22/2022 Start: 05-22-2022 End: 07-22-2022 Ferritin [Mass/volume] in Serum or Plasma FERRITIN BLD Lab Routine Iron deficiency anemia, unspecified iron deficiency anemia type Expected: 05/22/2022, Expires: 07/22/2022 [facility] Work Phone: Comment on above: Expected: 05/22/2022 , Expires: 07/22/2022 Start: 04-21-2022 End: 06-21-2022 CBC W Auto Differential panel - Blood [facility] Work Phone: Comment on above: Expected: 04/21/2022 , Expires: 06/21/2022 Start: 04-21-2022 End: 06-21-2022 Iron and Iron binding capacity panel - Serum or Plasma IRON + TIBC Lab Routine Iron deficiency anemia, unspecified iron deficiency anemia type Expected: 04/21/2022, Expires: 06/21/2022 [facility] Work Phone: Comment on above: Expected: 04/21/2022 , Expires: 06/21/2022 Start: 03-06-2022 Influenza vaccination INFLUENZA (#1) [facility] Start: 02-20-2022 End: 04-22-2022 JEB BY IFA WITH REFLEX JEB BY IFA WITH REFLEX Lab Routine Elevated bilirubin Abnormal results of liver function studies Expected: 02/20/2022, Expires: 04/22/2022 [facility] Work Phone: Comment on above: Expected: 02/20/2022 , Expires: 04/22/2022 Start: 02-20-2022 End: 04-22-2022 ANTI NEUTRO CYTO AB ANTI NEUTRO CYTO AB Lab Routine Elevated bilirubin Abnormal results of liver function studies Right upper quadrant abdominal pain Expected: 02/20/2022, Expires: 04/22/2022 [facility] Work Phone: Comment on above: Expected: 02/20/2022 , Expires: 04/22/2022 Start: 02-20-2022 End: 04-22-2022 Ceruloplasmin [Mass/volume] in Serum or Plasma CERULOPLASMIN BLD Lab Routine Elevated bilirubin Abnormal results of liver function studies Expected: 02/20/2022, Expires: 04/22/2022 [facility] Work Phone: Comment on above: Expected: 02/20/2022 , Expires: 04/22/2022 Start: 02-20-2022 End: 04-22-2022 Direct antiglobulin test.poly specific reagent [Presence] on Red Blood Cells VARGAS DIRECT Blood Bank Routine Elevated bilirubin Abnormal results of liver function studies Expected: 02/20/2022, Expires: 04/22/2022 [facility] Work Phone: Comment on above: Expected: 02/20/2022 , Expires: 04/22/2022 Start: 02-20-2022 End: 04-22-2022 Ferritin [Mass/volume] in Serum or Plasma FERRITIN BLD Lab Routine Elevated bilirubin Abnormal results of liver function studies Expected: 02/20/2022, Expires: 04/22/2022 [facility] Work Phone: Comment on above: Expected: 02/20/2022 , Expires: 04/22/2022 Start: 02-20-2022 End: 04-22-2022 HEP ACUTE PANEL/RNA HEP ACUTE PANEL/RNA Lab Routine Elevated bilirubin Abnormal results of liver function studies Expected: 02/20/2022, Expires: 04/22/2022 [facility] Work Phone: Comment on above: Expected: 02/20/2022 , Expires: 04/22/2022 Start: 02-20-2022 End: 04-22-2022 IgG [Mass/volume] in Serum or Plasma IGG Lab Routine Elevated bilirubin Abnormal results of liver function studies Right upper quadrant abdominal pain Expected: 02/20/2022, Expires: 04/22/2022 [facility] Work Phone: Comment on above: Expected: 02/20/2022 , Expires: 04/22/2022 Start: 02-20-2022 End: 04-22-2022 Iron and Iron binding capacity panel - Serum or Plasma IRON + TIBC Lab Routine Elevated bilirubin Abnormal results of liver function studies Expected: 02/20/2022, Expires: 04/22/2022 [facility] Work Phone: Comment on above: Expected: 02/20/2022 , Expires: 04/22/2022 Start: 02-20-2022 End: 04-22-2022 Lactate dehydrogenase [Enzymatic activity/volume] in Serum or Plasma LD LACTATE DEHYDRO Lab Routine Elevated bilirubin Abnormal results of liver function studies Expected: 02/20/2022, Expires: 04/22/2022 [facility] Work Phone: Comment on above: Expected: 02/20/2022 , Expires: 04/22/2022 Start: 02-20-2022 End: 04-22-2022 Mitochondria Ab [Presence] in Serum by Immunofluorescence MITOCHONDRIAL AB SCR Lab Routine Elevated bilirubin Abnormal results of liver function studies Expected: 02/20/2022, Expires: 04/22/2022 [facility] Work Phone: Comment on above: Expected: 02/20/2022 , Expires: 04/22/2022 Start: 02-20-2022 End: 04-22-2022 bilirubin panel [Mass/volume] - Serum or Plasma BILIRUBIN FRACTION Lab Routine Elevated bilirubin Abnormal results of liver function studies Right upper quadrant abdominal pain Expected: 02/20/2022, Expires: 04/22/2022 [facility] Work Phone: Comment on above: Expected: 02/20/2022 , Expires: 04/22/2022 Start: 02-20-2022 End: 04-22-2022 RETIC COUNT RETIC COUNT Lab Routine Elevated bilirubin Abnormal results of liver function studies Expected: 02/20/2022, Expires: 04/22/2022 [facility] Work Phone: Comment on above: Expected: 02/20/2022 , Expires: 04/22/2022 Start: 02-20-2022 End: 04-22-2022 Smooth muscle Ab [Presence] in Serum SMOOTH MUSCLE AB SCR Lab Routine Elevated bilirubin Abnormal results of liver function studies Right upper quadrant abdominal pain Expected: 02/20/2022, Expires: 04/22/2022 [facility] Work Phone: Comment on above: Expected: 02/20/2022 , Expires: 04/22/2022 Start: 07-06-2021 DEPRESSION ASSESSMENT DEPRESSION ASS ESSMENT [facility] Start: 01-14-2021 COVID-19 VACCINE (2 - Booster for Tamiko series) COVID-19 VACCINE (2 - Booster for Tamiko series) [facility] Start: 10-29-2019 CHLAMYDIA SCREENING (18-24) CH LAMYDIA SCREENING (24) [facility] Start: 10-29-2019 GC (GONORRHEA) SCREE DEVONTE (18-24) GC (GONORRHEA) SCREENING (24) [facility] Start: 10-29-2019 HEPATITIS C SCREENING HEPATITIS C SC REENING [facility] Start: 10-29-2019 HIV SCREENING HIV SCREENING [facility] Start: 2017 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 (1 of 2 - Risk Bexsero 2-dose series) MENINGOCOCCAL B: Consider based on risk (1 of 2 - Risk Bexsero 2-dose series) [facility] Start: 2010 HPV VACCINE (1 - 2-d ose series) HPV VACCINE (1 - 2-dose series) [facility] End: 03-22-2023 Mri abdomen w/o & w/contrast material MRI PANC/COREY WO/W IVCON Radiology Routine Elevated bilirubin Abnormal results of liver function studies 1 Occurrences starting 02/20/2022 until 03/22/2023 [facility] Work Phone: Comment on above: 1 Occurrences starti ng 02/20/2022 until 03/22/2023 End: 03-13-2022 Mri abdomen w/o & w/contrast material [facility] Work Phone: Comment on above: 1 Occurrences starti ng 03/13/2022 until 03/13/2022 Screening test visua l acuity quantitative bilat SCREENING TEST OF VISUAL ACUITY, QUANT Procedures Routine Encounter for general adult medical examination without abnormal findings Ordered: 02/23/2023 [facility] Work Phone: Comment on above: Ordered: 02/23/2023 UA DIP, URINE (POC) UA DIP, URIN E (POC) Lab Routine Encounter for general adult medical examination without abnormal findings Ordered: 02/23/2023 [facility] Work Phone: Comment on above: Ordered: 02/23/2023 End: 03-02-2023 Us abdominal real time w/image limited US ABD RT UPPER QUADRANT Radiology Routine Serum total bilirubin elevated 1 Occurrences starting 01/31/2022 until 03/02/2023 [facility] Work Phone: Comment on above: 1 Occurrences starti ng 01/31/2022 until 03/02/2023 End: 03-02-2023 US KIDNEY/BLADDER US KIDNEY/BLADDER Radiology Routine Serum total bilirubin elevated 1 Occurrences starting 01/31/2022 until 03/02/2023 [facility] Work Phone: Comment on above: 1 Occurrences starti ng 01/31/2022 until 03/02/2023 [facility] Work Phone: [facility] Immunizations Immunization Date Immunization Notes Care Provider Fa cili 04-07-2024 influenza, seasonal, injectable, preservative free Dr. Clotilde Fox MD Work Phone: [facility] 01-17-2020 meningococcal polysaccharide (groups A, C, Y and W-135) diphtheria toxoid conjugate vaccine (MCV4P) Melisa Caballero MD Work Phone: [facility] 09-07-2019 influenza, injectabl e, quadrivalent, preservative free Dr. Clotilde Fox MD Work Phone: [facility] 09-07-2019 influenza, seasonal, injectable Dr. Clotilde Fox Work Phone: [facility] Work Phone: 02-24-2014 tetanus toxoid, redu nader diphtheria toxoid, and acellular pertussis vaccine, adsorbed Melisa Caballero MD Work Phone: [facility] 01-29-2007 diphtheria, tetanus toxoids and acellular pertussis vaccine Melisa Caballero MD Work Phone: [facility] Work Phone: 01-29-2007 measles, mumps and rubella virus vaccine Melisa Caballero MD Work Phone: [facility] Work Phone: 01-29-2007 poliovirus vaccine, inactivated Melisa Caballero MD Work Phone: [facility] Work Phone: 05-01-2003 diphtheria, tetanus toxoids and acellular pertussis vaccine Melisa Caballero MD Work Phone: [facility] 05-01-2003 poliovirus vaccine, inactivated Melisa Caballero MD Work Phone: [facility] 02-08-2003 diphtheria, tetanus toxoids and acellular pertussis vaccine Melisa Caballero MD Work Phone: [facility] 02-08-2003 haemophilus influenz ae type b conjugate and Hepatitis B vaccine Melisa Caballero MD Work Phone: [facility] 02-08-2003 measles, mumps and rubella virus vaccine Melisa Caballero MD Work Phone: [facility] 08-12-2002 diphtheria, tetanus toxoids and acellular pertussis vaccine Melisa Caballero MD Work Phone: [facility] 08-12-2002 haemophilus influenz ae type b conjugate and Hepatitis B vaccine Melisa Caballero MD Work Phone: [facility] 08-12-2002 poliovirus vaccine, inactivated Melisa Caballero MD Work Phone: [facility] 06-15-2002 Chicken Pox (disease) Melisa ortega MD Work Phone: [facility] Work Phone: 01-26-2002 diphtheria, tetanus toxoids and acellular pertussis vaccine Melisa Caballero MD Work Phone: [facility] 01-26-2002 haemophilus influenz ae type b conjugate and Hepatitis B vaccine Melisa Caballero MD Work Phone: [facility] 01-26-2002 poliovirus vaccine, inactivated Melisa Caballero MD Work Phone: [facility] 2001 hepatitis B vaccine, pediatric or pediatric/adolescent dosage Melisa Caballero MD Work Phone: [facility] Payers Date Payer Category Payer Department of [facility] luis ( and others) [id number] 2024 Self-pay 2006 Medicaid [facility] MEDICAID [id number] 2006-Present [phone] [address] [place] [address] Medicaid [id number] 2006 Medicaid [id number] 2006 Unknown [id number] Unknown [id number] Unknown [id number] Unknown [id number] Unknown [id number] Unknown [id number] Unknown [id number] Unknown [id number] Unknown [id number] Social History Date Type Detail Facility Start: 11-17-2018 End: 07-15-2024 Tobacco smoking status DCIS Never smoked tobacco [facility] Start: 01-30-2022 Alcohol intake Not Asked [facility] Start: 01-29-2022 End: 05-27-2022 History SDOH Alcohol Frequency 1 [facility] Start: 01-29-2022 History SDOH Alcohol Std Drinks 98 [facility] Start: 01-29-2022 End: 05-27-2022 History SDOH Social Connections Phone 5 [facility] Start: 01-29-2022 End: 05-27-2022 History SDOH Social Connections Get Together 2 [facility] Start: 01-29-2022 End: 05-27-2022 History SDOH Social Connections Restoration 3 [facility] Start: 01-29-2022 End: 05-27-2022 History SDOH Social Connections Living 7 [facility] Start: 01-29-2022 History SDOH Physica l Activity MPS 6 [facility] Start: 2001 Sex Assigned At Female C [facility] Start: 01-20-2022 End: 04-21-2022 Exposure to SARS-CoV-2 (event) Not sure [facility] Start: 11-17-2018 End: 04-21-2022 Tobacco use and exposure Smokeless tobacco non-user [facility] Work Phone: Start: 02-20-2022 End: 02-23-2023 Alcohol intake Lifetime non-drinker (finding) [facility] Start: 05-27-2022 History SDOH Alcohol Std Drinks 0 [facility] Start: 05-27-2022 History SDOH Financial 4 [facility] Start: 05-26-2022 End: 02-23-2023 History of Social function [facility] Start: 05-26-2022 End: 02-23-2023 Social connection and isolation panel [facility] Do you belong to any clubs or organizations such as anabaptism groups, unions, fraternal or athletic groups, or school groups? Yes [facility] Are you now , , , , never or living with a partner? Never [facility] How often to you hav e a drink containing alcohol? Never [facility] How many standard dr inks containing alcohol do you have on a typical day? Patient does not drink [facility] How hard is it for y ou to pay for the very basics like food, housing, medical care, and heating Not very hard [facility] Do you feel stress - tense, restless, nervous, or anxious, or unable to sleep at night because your mind is troubled all the time - these days [OSQ] Only a little [facility] (I/We) worried wheth er (my/our) food would run out before (I/we) got money to buy more. Never true [facility] In the past 12 month s, was there a time when you were not able to pay the mortgage or rent on time? No [facility] Start: 01-29-2022 Gender identity Identifies as female gender (finding) [facility] NEGATED: Highlighted rowStart: NINF History of tobacco use Passive smoker [facility] Clinical Notes 01-31-2022 to 10-07-2024 Note Date & Type Note Facility 10-07-2024 Evaluation note Diagnosis Onset Date Resolution Encounter for IUD insertion resolved October 07, 2024 4:11pm IUD check up noneactive November 17 11:59am [facility] Work Phone: 1(285) 875-976801-31-2025 Evaluation note* Diagnosis Onset Date Resolution Status Admit Date Encounter for routine gynecological examination noneactive Michael maldonado 2024 3:57pm Encounter for IUD insertion acute October 07, 2024 4:11pm [facility] Work Phone: 1(814) 303-638608-21-2023 NoteHNO ID: [id number] Author: Clotilde Fox MD Service: ? Author Type: Physician Type: Progress Notes Filed: 03/07/2023 9:18 AM Note Text: WELL VISIT PEDIATRIC 18+ YRS OLD is a 22 year old who presents today for well exam. SUBJECTIVE CONCERNS: Recheck iron v HISTORY There is no problem list on file for this patient. PAST MEDICAL HISTORY Diagnosis Date PMH - PAST MEDICAL HISTORY OF 11/05/06 normal color vision Varicella without mention of complication 8 months old PAST SURGICAL HISTORY Procedure Laterality Date NONE UNLISTED PROCEDURE DENTOALVEOLAR STRUCTURES wisdom teeth removal ALLERGIES Allergen Reactions Amoxicillin Hives Vantin [Cefpodoxime* Medications: ferrous sulfate 325 mg (65 mg iron) tablet Take 1 tablet every other day (or Mon/Wed/Fri). Take with food to minimize GI upset. Take with vitamin C for better absorption. fluticasone (FLONASE) 50 mcg/actuation nasal spray INSTILL 1 SPRAY INTO EACH NOSTRIL 2 (TWO) TIMES A DAY FOR 28 DAYS (Patient not taking: Reported on 05/30/2022) FAMILY HISTORY Problem Relation Age of Onset Asthma Brother Asthma Maternal Grandmother Cancer Paternal Grandfather Colon Cancer No Family History Social History Social History Narrative Not on file Smoking Exposure: Do you spend a significant amount of time with anyone who smokes? No School: Presently in College. Any concerns regarding peer interactions? No Physical Activity: more than 1 hour of physical activity per day Recreational Screen Time totaling less than 2 hours of screen time per day. Fainting, dizziness, significant shortness of breath or chest pain with sports or exercise: No History of concussion in the last year: No Safety: Reviewed seat belts and bike helmets Diet: -Eats 2-3 meals a day, 2-3 snacks -Typically drinks water -Eats fruits and vegetables Elimination: no concerns, normal size and consistency Dental: dental care not current Sleep: -no sleep concerns VISUAL ACUITY: Today's exam: Vision Correction? Contacts: RIGHT EYE: 20/20 LEFT EYE: 20/ 20 Vision: No vision concerns, wears contacts, see's an eye doctor Hearing: No hearing concerns Growth: No growth concerns Gynecological history: LMP: 02/05/23 Cycles are regular and last 5-7 days. Dysmenorrhea: none Heavy periods: no Substance use: none Sexual History: Attraction: male Sexually Active: No Body image: satisfactory Screening tools reviewed and discussed with patient/[id number]. Please see Patient Entered Data. PHQ-9 = 1 OBJECTIVE Physical Exam: BP 114/62 Pulse 60 Temp 37 ?C (98.6 ?F) (Temporal) Resp 14 Ht 180.3 cm (5' 10.98) Wt 79.5 kg (175 lb 3.2 oz) LMP 02/05/2023 (Exact Date) BMI 24.45 kg/m? Blood pressure %elizabeth are not available for patients who are 18 years or older. Blood pressure %elizabeth are not available for patients who are 18 years or older. Normalized BMI data available only for age 0 to 20 years. Last BMI: Wt: 82.8 kg (182 lb 9.6 oz) BMI: 25.47 kg/(m2) Last 4 Encounter Wt Readings: Date: Wt: 05/30/2022 82.8 kg (182 lb 9.6 oz) 04/21/2022 82.4 kg (181 lb 12 oz) 02/20/2022 74.8 kg (165 lb) 01/30/2022 77.6 kg (171 lb) Last 4 Encounter Ht Readings: Date: Ht: 02/20/2022 180.3 cm (5' 11) 01/28/2021 180.8 cm (5' 11.18) (>99 %, Z= 2.72)* 01/17/2020 180.3 cm (5' 11) (>99 %, Z= 2.66)* 05/31/2019 179.8 cm (5' 10.79) (>99 %, Z= 2.59)* General: alert and active in no apparent distress Head: Normocephalic, atraumatic Eyes: Steady central gaze without nystagmus. Conjunctiva clear without injection or discharge. Ears: External ears normal. Canals clear. Tympanic membranes are intact bilaterally without evidence of fluid in the middle ear space Nose/Sinuses: Nares normal. Septum midline. Mucosa normal. No drainage or sinus tenderness. Oropharynx: Tonsils are 1+. Uvula is midline and the oropharynx is symmetrical Neck: No masses and the suprasternal notch, no supraclavicular adenopathy, supple, no adenopathy Thyroid: no masses or nodules present Heart: Regular Rate and Rhythm without murmurs or clicks, femoral and radial pulses are normal.PMI normal Lungs: clear to auscultation. No wheezes or rales.Chest AP diameter normal. Abdomen: Abdomen is soft, nontender, without organomegaly or masses. Musculoskeletal: Extremities with FROM and no problems identified. Bilateral shoulder, elbow and wrist exams are within normal limits. Bilateral hip, knee and ankle examinations are within normal limits. Neurological: Muscle tone normal, Awake, alert and oriented x 3, Cranial nerves II-XII grossly intact, Normal age appropriate gait, muscle tone normal, muscle strength 5/5 in the upper and lower extremities bilaterally and symmetrically, rapid alternating movements smooth in the hands without evidence of dysdiadochokinesia Skin: Normal skin exam without concerning lesions ASSESSMENT: (more content not included)...[facility]08-21-2023 Instructions* Patient Instructions* Clotilde Fox MD - 02/23/2023 2:45 PM EDT Images from the original note were not included. 5 to Go!TM Healthy Kids Inside & Out 5 Eat FIVE fruits and veggies a day 4 Give and get FOUR compliments a day 3 Consume THREE calcium products a day 2 Limit media time to TWO hours a day 1 Get at least ONE hour of exercise a day 0 Consume ZERO sugar-sweetened drinks Go! Be healthy, inside and out! [email or web address] Adolescent to Adult Transition Program [facility] cares about helping you and each of our adolescents and young adults make a smoothtransition to adult care. If your current doctor is a counselor dormitory, we will work with you to decide the correct age for moving your care to a doctor or other provider who takes care of adults. We suggest that this move take place before age 22. Our office policy is to prepare you to move to a doctor or other provider who takes care of adults. This includes helping you find a doctor or other provider, sending medical records, and talking about any special needs with the new doctor or other provider. If your current doctor is in family medicine, [facility] will prepare you and your family forthe transition to being an adult patient. You will be able to make your own healthcare decisions and will have an adult care team that meets your personal healthcare needs. At age 18, by law, we need your agreement to discuss personal health information with your family. We understand and respect that you may want to include your family in healthcare choices and will partner with you on how and when to include your family in decisions. We will make sure you know what changes to expect. We will also strive to make sure that all care team providers know your needs. We will help you find community resources and specialty care, if needed. Having your information before you come for the first time helps us be sure we do not miss any details. If joining our practice from outside [facility], we will help you request your medical record from past doctor(s) before your first visit. We will make every effort to work with your past providers to ensure a smooth transition and experience. We are always here for you. If you have any questions or concerns, please contact your primary careteam or e-mail [email or web address] Got Transition is the federally funded national resource center on health care transition (HCT). Its aim is to improve transition from pediatric to adult health care through the use of evidence-driven strategies for health care process manager, youth, young adults, and their families. www.gottransition.org [email or web address]://[email or web address]/resource/?[email or web address]-lxodxow documented in this encounterBet[facility]08-21-2023 History of Present illness Narrative* Clotilde Fox MD - 02/23/2023 2:25 PM EDT WELL VISIT PEDIATRIC 18+ YRS OLD is a 22 year old who presents today for well exam. SUBJECTIVE CONCERNS: Recheck iron v HISTORY There is no problem list on file for this patient. PAST MEDICAL HISTORY Diagnosis Date PMH - PAST MEDICAL HISTORY OF 11/05/06 normal color vision Varicella without mention of complication 8 months old PAST SURGICAL HISTORY Procedure Laterality Date NONE UNLISTED PROCEDURE DENTOALVEOLAR STRUCTURES wisdom teeth removal ALLERGIES Allergen Reactions Amoxicillin Hives Vantin [Cefpodoxime* Medications: ferrous sulfate 325 mg (65 mg iron) tablet Take 1 tablet every other day (or Mon/Wed/Fri). Take with food to minimize GI upset. Take with vitamin C for better absorption. fluticasone (FLONASE) 50 mcg/actuation nasal spray INSTILL 1 SPRAY INTO EACH NOSTRIL 2 (TWO) TIMES A DAY FOR 28 DAYS (Patient not taking: Reported on 05/30/2022) FAMILY HISTORY Problem Relation Age of Onset Asthma Brother Asthma Maternal Grandmother Cancer Paternal Grandfather Colon Cancer No Family History Social History Social History Narrative Not on file Smoking Exposure: Do you spend a significant amount of time with anyone who smokes? No School: Presently in College. Any concerns regarding peer interactions? No Physical Activity: more than 1 hour of physical activity per day Recreational Screen Time totaling less than 2 hours of screen time per day. Fainting, dizziness, significant shortness of breath or chest pain with sports or exercise: No History of concussion in the last year: No Safety: Reviewed seat belts and bike helmets Diet: -Eats 2-3 meals a day, 2-3 snacks -Typically drinks water -Eats fruits and vegetables Elimination: no concerns, normal size and consistency Dental: dental care not current Sleep: -no sleep concerns VISUAL ACUITY: Today's exam: Vision Correction? Contacts: RIGHT EYE: 20/20 LEFT EYE: 20/ 20 Vision: No vision concerns, wears contacts, see's an eye doctor Hearing: No hearing concerns Growth: No growth concerns Gynecological history: LMP: 02/05/23 Cycles are regular and last 5-7 days. Dysmenorrhea: none Heavy periods: no Substance use: none Sexual History: Attraction: male Sexually Active: No Body image: satisfactory Screening tools reviewed and discussed with patient/[id number]. Please see Patient Entered Data. PHQ-9 = 1 OBJECTIVE Physical Exam: BP 114/62 Pulse 60 Temp 37 C (98.6 F) (Temporal) Resp 14 Ht 180.3 cm (5' 10.98) Wt 79.5 kg (175 lb 3.2 oz) LMP 02/05/2023 (Exact Date) BMI 24.45 kg/m Blood pressure %elizabeth are not available for patients who are 18 years or older. Blood pressure %elizabeth are not available for patients who are 18 years or older. Normalized BMI data available only for age 0 to 20 years. Last BMI: Wt: 82.8 kg (182 lb 9.6 oz) BMI: 25.47 kg/(m^2) Last 4 Encounter Wt Readings: Date: Wt: 05/30/2022 82.8 kg (182 lb 9.6 oz) 04/21/2022 82.4 kg (181 lb 12 oz) 02/20/2022 74.8 kg (165 lb) 01/30/2022 77.6 kg (171 lb) Last 4 Encounter Ht Readings: Date: Ht: 02/20/2022 180.3 cm (5' 11) 01/28/2021 180.8 cm (5' 11.18) (>99 %, Z= 2.72)* 01/17/2020 180.3 cm (5' 11) (>99 %, Z= 2.66)* 05/31/2019 179.8 cm (5' 10.79) (>99 %, Z= 2.59)* General: alert and active in no apparent distress Head: Normocephalic, atraumatic Eyes: Steady central gaze without nystagmus. Conjunctiva clear without injection or discharge. Ears: External ears normal. Canals clear. Tympanic membranes are intact bilaterally without evidence of fluid in the middle ear space Nose/Sinuses: Nares normal. Septum midline. Mucosa normal. No drainage or sinus tenderness. Oropharynx: Tonsils are 1+. Uvula is midline and the oropharynx is symmetrical Neck: No masses and the suprasternal notch, no supraclavicular adenopathy, supple, no adenopathy Thyroid: no masses or nodules present Heart: Regular Rate and Rhythm without murmurs or clicks, femoral and radial pulses are normal.PMI normal Lungs: clear to auscultation. No wheezes or rales.Chest AP diameter normal. Abdomen: Abdomen is soft, nontender, without organomegaly or masses. Musculoskeletal: Extremities with FROM and no problems identified. Bilateral shoulder, elbow and wrist exams are within normal limits. Bilateral hip, knee and ankle examinations are within normal limits. Neurological: Muscle tone normal, Awake, alert and oriented x 3, Cranial nerves II-XII grossly intact, Normal age appropriate gait, muscle tone normal, muscle strength 5/5 in the upper and lower extremities bilaterally and symmetrically, rapid alternating movements smooth in the hands without evidence of dysdiadochokinesia Skin: Normal skin exam without concerning lesions ASSESSMENT: 22 year old Well exam History of iron deficiency Encounter for general adult medical examination without abnormal findings (primary encounter diagnosis) Serum total bilirubin elevated: Previously evaluated by gastroenterology for mildly elevated conjugated bilirubin level. Last seen by gastroenterology in February 2022. Conjugated level remains elevated patient should follow-up with gastroenterology. PLAN: 1) Plan per orders. 1. Encounter for general adult medical examination without abnormal findings - ICD9: V70.9, ICD10: Z00.00 (primary diagnosis) - SCREENING TEST OF VISUAL ACUITY, QUANT - UA DIP, URINE (POC) 2. History of iron deficiency - ICD9: V12.3, ICD10: Z86.39 - CBC - FERRITIN BLD 3. Serum total bilirubin elevated - ICD9: 277.4, ICD10: R17 - BILIRUBIN FRACTION 2) Hearing and Vision if done at the visit was discussed and reviewed with the patient and family. 3) Questionnaires, if administered at the office today, were reviewed with the patient and family. 4) Growth curves including BMI were reviewed with the patient. Education regarding BMI, its meaningutility and limitations were discussed in the office today. If the BMI was elevated, we discussed interventions. 5) Counseling: See patient instruction section 6) Follow up every 1 year for well exam and PRN. Depression Screening 01/29/2022 04/16/2022 05/26/2022 PHQ-2 Score 0 0 0 PHQ-9 Score 0 0 1 Depression screening tool completed and reviewed. Based on score and interview, patient is not at risk for depression. Screening tool discussed with patient, and I recommended no further interventionat this time. - Discussed diet and safety. - Dental care discussed. - Bright Futures handout given (See Patient Instructions). - Patient declined immunization for HPV and was counseled regarding risk. - Healthcare transition statement discussed.. - Follow up in one year for routine physical. -The patient is 22. Would recommend establishing with 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. Clotilde Fox MD documented in this encounterBethes[facility] Hospital11-25-2022 NoteHNO ID: [id number] Author: Irma Jay APRN.FOAM CASTER Service: ? Author Type: Nurse Practitioner Type: Progress Notes Filed: 05/30/2022 9:42 AM Note Text: PEDIATRIC SICK VISIT SERVICE DATE: 05/30/2022 SUBJECTIVE: Elizabeth Nuno is a 21 year old presenting to clinic for follow up medication check. Patient presents with: Follow up : Medication Check Patient was seen in clinic 04/21/22 and started on iron supplementation for iron deficiency that was found when labs were ordered by GI. Ferritin was low, 12.3 She did not have anemia. Patient denies excessive fatigue or other symptoms. She has recent hx of URI and reports mild intermittent cough. History was obtained from: patient HISTORY: There is no problem list on file for this patient. PAST MEDICAL HISTORY Diagnosis Date PMH - PAST MEDICAL HISTORY OF 11/05/06 normal color vision Varicella without mention of complication 8 months old PAST SURGICAL HISTORY Procedure Laterality Date NONE UNLISTED PROCEDURE DENTOALVEOLAR STRUCTURES wisdom teeth removal Allergies: ALLERGIES Allergen Reactions Amoxicillin Hives Vantin [Cefpodoxime* Medications: ferrous sulfate 325 mg (65 mg iron) tablet Take 1 tablet every other day (or Mon/Wed/Fri). Take with food to minimize GI upset. Take with vitamin C for better absorption. Clindamycin-Benzoyl Peroxide (BENZACLIN) 1-5 % gel Apply to affected area twice daily. fluticasone (FLONASE) 50 mcg/actuation nasal spray INSTILL 1 SPRAY INTO EACH NOSTRIL 2 (TWO) TIMES A DAY FOR 28 DAYS (Patient not taking: Reported on 05/30/2022) OBJECTIVE: BP 118/70 Pulse 64 Temp 36.3 ?C (97.3 ?F) (Temporal) Resp 14 Wt 82.8 kg (182 lb 9.6 oz) LMP 05/30/2022 (Exact Date) BMI 25.47 kg/m? General: well appearing, alert and active in no apparent distress Eyes: conjunctiva clear, PERRL Ears: TMs translucent bilaterally, normal landmarks noted Nose: no rhinorrhea, no mucosal edema OP: no lesions, no erythema Neck: supple, no adenopathy Lungs: clear to auscultation bilaterally, good air exchange, no wheezes CVS: Normal rate, regular rhythm, no murmur Skin: No rashes, lesions or skin changes ASSESSMENT/PLAN: Encounter Diagnosis ICD-10-CM 1. History of iron deficiency Z86.39 - At last visit, 04/21/22, ferritin was low, 12.3, with no anemia. Repeat labs done 05/27/22 show ferritin increased to 24.7, with no anemia. - Continue iron supplementation Mon/Wed/Fri for total of 3 months treatment (Discontinue around 07/22/22) - Recommend iron-rich diet - Return to clinic as needed for well care or for any concerns. SIGNATURE: Irma Jay APRN.CNP PATIENT NAME: Elizabeth Nuno DATE: May 30, 2022 TIME: 9:10 [facility]11-25-2022 Instructions* Patient Instructions* Irma Jay APRN.CNP - 05/30/2022 9:21 AM EST - Continue iron supplement Mon/Wed/Fri for total of 3 months treatment (until around 07/22/22) - Continue with iron-rich diet documented in this encounterBet[facility]11-25-2022 History of Present illness Narrative* Irma Jay APRN.CNP - 05/30/2022 9:10 AM EST PEDIATRIC SICK VISIT SERVICE DATE: 05/30/2022 SUBJECTIVE: Elizabeth Nuno is a 21 year old presenting to clinic for follow up medication check. Patient presents with: Follow up : Medication Check Patient was seen in clinic 04/21/22 and started on iron supplementation for iron deficiency that was found when labs were ordered by GI. Ferritin was low, 12.3 She did not have anemia. Patient denies excessive fatigue or other symptoms. She has recent hx of URI and reports mild intermittent cough. History was obtained from: patient HISTORY: There is no problem list on file for this patient. PAST MEDICAL HISTORY Diagnosis Date PMH - PAST MEDICAL HISTORY OF 11/05/06 normal color vision Varicella without mention of complication 8 months old PAST SURGICAL HISTORY Procedure Laterality Date NONE UNLISTED PROCEDURE DENTOALVEOLAR STRUCTURES wisdom teeth removal Allergies: ALLERGIES Allergen Reactions Amoxicillin Hives Vantin [Cefpodoxime* Medications: ferrous sulfate 325 mg (65 mg iron) tablet Take 1 tablet every other day (or Mon/Wed/Fri). Take with food to minimize GI upset. Take with vitamin C for better absorption. Clindamycin-Benzoyl Peroxide (BENZACLIN) 1-5 % gel Apply to affected area twice daily. fluticasone (FLONASE) 50 mcg/actuation nasal spray INSTILL 1 SPRAY INTO EACH NOSTRIL 2 (TWO) TIMES A DAY FOR 28 DAYS (Patient not taking: Reported on 05/30/2022) OBJECTIVE: BP 118/70 Pulse 64 Temp 36.3 C (97.3 F) (Temporal) Resp 14 Wt 82.8 kg (182 lb 9.6 oz) LMP107/30/2021 (Exact Date) BMI 25.47 kg/m General: well appearing, alert and active in no apparent distress Eyes: conjunctiva clear, PERRL Ears: TMs translucent bilaterally, normal landmarks noted Nose: no rhinorrhea, no mucosal edema OP: no lesions, no erythema Neck: supple, no adenopathy Lungs: clear to auscultation bilaterally, good air exchange, no wheezes CVS: Normal rate, regular rhythm, no murmur Skin: No rashes, lesions or skin changes ASSESSMENT/PLAN: Encounter Diagnosis ICD-10-CM 1. History of iron deficiency Z86.39 - At last visit, 04/21/22, ferritin was low, 12.3, with no anemia. Repeat labs done 05/27/22 show ferritin increased to 24.7, with no anemia. - Continue iron supplementation Mon/Thu/Thu for total of 3 months treatment (Discontinue around 07/22/22) - Recommend iron-rich diet - Return to clinic as needed for well care or for any concerns. SIGNATURE: Irma Jay APRN.CNP PATIENT NAME: Elizabeth Nuno DATE: May 30, 2022 TIME: 9:10 AM documented in this encounterBethesda North Hospital10-17-2022 NoteHNO ID: [id number] Author: Irma Jay APRN.CNP Service: ? Author Type: Nurse Practitioner Type: Progress Notes Filed: 04/21/2022 12:53 PM Note Text: PEDIATRIC SICK VISIT SERVICE DATE: 04/21/2022 SUBJECTIVE: Elizabeth Nuno is a 21 year old female presenting to clinic for evaluation of low ferritin levels. Patient is being evaluated by GI for bilirubinuria found incidentally with UA done at outside urgent care clinic. Ferritin was ordered by GI and was low, 12.3. CBC was not done at this time. 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 PAST MEDICAL HISTORY Diagnosis Date PMH - PAST MEDICAL HISTORY OF 11/05/06 normal color vision Varicella without mention of complication 8 months old PAST SURGICAL HISTORY Procedure Laterality Date NONE UNLISTED PROCEDURE DENTOALVEOLAR STRUCTURES wisdom teeth removal Allergies: ALLERGIES Allergen Reactions Amoxicillin Hives Vantin [Cefpodoxime* Medications: Clindamycin-Benzoyl Peroxide (BENZACLIN) 1-5 % gel Apply to affected area twice daily. ferrous sulfate 325 mg (65 mg iron) tablet Take 1 tablet every other day (or Mon/Wed/Fri). Take with food to minimize GI upset. Take with vitamin C for better absorption. fluticasone (FLONASE) 50 mcg/actuation nasal spray INSTILL 1 SPRAY INTO EACH NOSTRIL 2 (TWO) TIMES A DAY FOR 28 DAYS REVIEW OF SYSTEMS: GENERAL: Positive for intermittent dizziness, Negative for fevers HEENT: Negative for congestion or rhinorrhea. RESPIRATORY: Negative for cough, wheezing or respiratory distress GI: Negative for vomiting or diarrhea. SKIN: Negative for lesions, rash, and itching. OBJECTIVE: BP 128/82 Pulse 68 Temp 36.4 ?C (97.6 ?F) (Temporal Artery) Resp 12 Wt 82.4 kg (181 lb 12 oz) LMP 01/23/2022 (Exact Date) BMI 25.35 kg/m? General: well appearing, alert and active in no apparent distress Eyes: conjunctiva clear, PERRL Ears: TMs translucent: bilaterally TMs clear: bilaterally Nose: no erythema or exudate OP: no lesions, no erythema Neck: supple, no adenopathy Lungs: clear to auscultation bilaterally, good air exchange, no retractions CVS: Normal rate, regular rhythm, no murmur Skin: No rashes, lesions or skin changes ASSESSMENT/PLAN: Encounter Diagnosis ICD-10-CM 1. Iron deficiency anemia, unspecified iron deficiency anemia type D50.9 CBC + DIFF CBC + DIFF FERRITIN BLD IRON + TIBC ferrous sulfate 325 mg (65 mg iron) tablet - Start iron tablets. Take every other day (or Thu if that's easier to remember). Take with food to mimimize GI upset. - Take with Vitamin C for better absorption (orange juice) - Eat iron rich foods - Return to clinic in about 6 weeks for follow up. If you can, you can come to the lab before your appt to complete repeat labs. I will order them now. SIGNATURE: Irma Jay APRN.CNP PATIENT NAME: Elizabeth Nuno DATE: April 21, 2022 TIME: 8:55 [facility]10-17-2022 Instructions* Patient Instructions* Irma Jay APRN.CNP - 04/21/2022 9:13 AM EDT - Start iron tablets. Take every other day (or Thu if that's easier to remember). Take withfood to mimimize GI upset. - Take with Vitamin C for better absorption (orange juice) - Eat iron rich foods - Return to clinic in about 6 weeks for follow up. If you can, you can come to the lab before your appt to complete repeat labs. I will order them now. documented in this encounterBethes[facility] Hospital10-17-2022 History of Present illness Narrative* Irma Jay APRN.CNP - 04/21/2022 8:54 AM EDT PEDIATRIC SICK VISIT SERVICE DATE: 04/21/2022 SUBJECTIVE: Elizabeth Nuno is a 21 year old female presenting to clinic for evaluation of low ferritin levels. Patient is being evaluated by GI for bilirubinuria found incidentally with UA done at outside urgent care clinic. Ferritin was ordered by GI and was low, 12.3. CBC was not done at this time. 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 PAST MEDICAL HISTORY Diagnosis Date PMH - PAST MEDICAL HISTORY OF 11/05/06 normal color vision Varicella without mention of complication 8 months old PAST SURGICAL HISTORY Procedure Laterality Date NONE UNLISTED PROCEDURE DENTOALVEOLAR STRUCTURES wisdom teeth removal Allergies: ALLERGIES Allergen Reactions Amoxicillin Hives Vantin [Cefpodoxime* Medications: Clindamycin-Benzoyl Peroxide (BENZACLIN) 1-5 % gel Apply to affected area twice daily. ferrous sulfate 325 mg (65 mg iron) tablet Take 1 tablet every other day (or Thu/Thu/Thu). Take with food to minimize GI upset. Take with vitamin C for better absorption. fluticasone (FLONASE) 50 mcg/actuation nasal spray INSTILL 1 SPRAY INTO EACH NOSTRIL 2 (TWO) TIMES A DAY FOR 28 DAYS REVIEW OF SYSTEMS: GENERAL: Positive for intermittent dizziness, Negative for fevers HEENT: Negative for congestion or rhinorrhea. RESPIRATORY: Negative for cough, wheezing or respiratory distress GI: Negative for vomiting or diarrhea. SKIN: Negative for lesions, rash, and itching. OBJECTIVE: BP 128/82 Pulse 68 Temp 36.4 C (97.6 F) (Temporal Artery) Resp 12 Wt 82.4 kg (181 lb 12 oz) LMP 01/23/2022 (Exact Date) BMI 25.35 kg/m General: well appearing, alert and active in no apparent distress Eyes: conjunctiva clear, PERRL Ears: TMs translucent: bilaterally TMs clear: bilaterally Nose: no erythema or exudate OP: no lesions, no erythema Neck: supple, no adenopathy Lungs: clear to auscultation bilaterally, good air exchange, no retractions CVS: Normal rate, regular rhythm, no murmur Skin: No rashes, lesions or skin changes ASSESSMENT/PLAN: Encounter Diagnosis ICD-10-CM 1. Iron deficiency anemia, unspecified iron deficiency anemia type D50.9 CBC + DIFF CBC + DIFF FERRITIN BLD IRON + TIBC ferrous sulfate 325 mg (65 mg iron) tablet - Start iron tablets. Take every other day (or Thu Wed Thu if that's easier to remember). Take withfood to mimimize GI upset. - Take with Vitamin C for better absorption (orange juice) - Eat iron rich foods - Return to clinic in about 6 weeks for follow up. If you can, you can come to the lab before your appt to complete repeat labs. I will order them now. SIGNATURE: Irma Jay APRN.CNP PATIENT NAME: Elizabeth Nuno DATE: April 21, 2022 TIME: 8:55 AM documented in this encounterBethesda [facility] Hospital09-08-2022 NoteHNO ID: [id number] Author: RT Missy(Bruna) Service: ? Author Type: Technologist Type: Progress Notes Filed: 03/13/2022 2:33 PM Note Text: Radiology Service Progress Note DATE OF SERVICE: March 13, 2022 TIME: 2:33 PM PATIENT IDENTITY VERIFICATION COMPLETED USING TWO (2) STANDARD IDENTIFIERS: Name and Date of confirmed by patient verbally. FALL SCREENING: Has the patient had 2 falls in the last year or 1 fall with injury or currently using an Ambulatory Assistive Device (Walker, Cane, Wheelchair, Crutches, etc.)? No PATIENT GENDER DATA: Female. status: : No status: NO. PATIENT RELEVANT IMPLANT DATA REVIEWED: Yes ALLERGIES: Reviewed and unchanged CONTRAST ALLERGY: NO. EXAM: MRI - CONTRAST TYPE: GROUP II PERIPHERAL IV DATA: Ambulatory: A peripheral IV was started in the Right forearm with a Angio cath: 22 gauge. RADIOLOGY DEPARTMENT: MR; Exam(s) Completed: Body: Pancreas/Biliary SIGNATURE: RT Missy(Bruna) PATIENT NAME: Elizabeth Nuno DATE: March 13, 2022 TIME: 2:33 [facility]09-08-2022 History of Present illness Narrative* JANE Louis) - 03/13/2022 1:40 PM EDT Radiology Service Progress Note DATE OF SERVICE: March 13, 2022 TIME: 2:33 PM PATIENT IDENTITY VERIFICATION COMPLETED USING TWO (2) STANDARD IDENTIFIERS: Name and Date of confirmed by patient verbally. FALL SCREENING: Has the patient had 2 falls in the last year or 1 fall with injury or currently using an Ambulatory Assistive Device (Walker, Cane, Wheelchair, Crutches, etc.)? No PATIENT GENDER DATA: Female. status: : No status: NO. PATIENT RELEVANT IMPLANT DATA REVIEWED: Yes ALLERGIES: Reviewed and unchanged CONTRAST ALLERGY: NO. EXAM: MRI - CONTRAST TYPE: GROUP II PERIPHERAL IV DATA: Ambulatory: A peripheral IV was started in the Right forearm with a Angio cath:22 gauge. RADIOLOGY DEPARTMENT: MR; Exam(s) Completed: Body: Pancreas/Biliary SIGNATURE: RT Missy(R) PATIENT NAME: Elizabeth Nuno DATE: March 13, 2022 TIME: 2:33 PM documented in this encounterBethesda [facility] Hospital09-01-2022 Miscellaneous Notes* Telephone Encounter - Mitzi Engle Ma - 03/06/2022 1:14 PM EDT Pt notified. Can you please put the order in for repeat labs in 3 months. Mitzi nEgle Ma * Telephone Encounter - Mitzi Engle Ma - 03/06/2022 1:14 PM EDT ----- Message from Ailyn Pichardo MD sent at 03/06/2022 12:28 PM EDT ----- Bilirubin is slightly elevated but the rest of her liver chemistries are normal. This could be due to a resolving infection or autoimmune condition. Repeat liver chemistries bilirubin after 3 months then we will determine if we need to do liver biopsy. Her ferritin levels (iron stores) are low. She might need to talk to primary care physician about replacing iron Higher anti-smooth muscles antibodies is positive but this could be positive in normal population and could be positive in patient with autoimmune disease. We will continue to monitor if she does nothave any other symptoms documented in this encounterBethesda North Hospital08-18-2022 History of Present illness Narrative* Ailyn Pichardo MD - 02/20/2022 10:00 AM EDT CHIEF COMPLAINT: Patient presents with: Elevated bilirubin: US 02/14/22, Labs 02/03/22 This consult was requested by Clotilde Fox MD for an opinion regarding elevated bilirubin . My final recommendations will be communicated to the requesting health care provider by way of the shared medical record for internal providers or letter via the [employer] for external p roviders. HPI: Elizabeth Nuno is a 21 year old female who presents for Elevated bilirubin (US 02/14/22, Labs 02/03/22). Elevated bilirubin Started as abd pain and tested for UTI and was found to have bilirubin in the urine Some yellow eyes reported No risk for hepatitis No herbals, OTC meds, or any other meds No alcohol use No skin rash but endorsed some heat rash No issues with eating or drinking Weight is stable No THC use US abd 02/14/22 IMPRESSION: Normal sonographic appearance of the right upper quadrant. Record Review: [facility] / Outside records reviewed. PAST MEDICAL HISTORY Diagnosis Date PMH - PAST MEDICAL HISTORY OF 11/05/06 normal color vision Varicella without mention of complication 8 months old PAST SURGICAL HISTORY Procedure Laterality Date NONE UNLISTED PROCEDURE DENTOALVEOLAR STRUCTURES wisdom teeth removal Allergies: ALLERGIES Allergen Reactions Amoxicillin Hives Vantin [Cefpodoxime* Medications: fluticasone (FLONASE) 50 mcg/actuation nasal spray INSTILL 1 SPRAY INTO EACH NOSTRIL 2 (TWO) TIMES A DAY FOR 28 DAYS Clindamycin-Benzoyl Peroxide (BENZACLIN) 1-5 % gel Apply to affected area twice daily. iv contrast (will be provided with radiology test) MRI PANC/COREY Inject, intravenously, once for 1 dose. No IV access, insert saline lock prior to the beginning of sedation, infusion, injection of imaging exam. Discontinue saline lock post exam. If Pt. has a central line or IVAD, may access for administration according to line specific nursing protocol. Once exam is complete flush line and de-access according to line specific nursing protocol in the MR contrast administration guidelines link. FAMILY HISTORY Problem Relation Age of Onset Asthma Brother Asthma Maternal Grandmother Cancer Paternal Grandfather Colon Cancer No Family History Employer And Job Title: None on file Years Of Education Completed: Not specified Marital Status: Single Social History Tobacco Use Smoking status: Never Smokeless tobacco: Never Vaping Use Vaping Use: Never used Substance Use Topics Alcohol use: Never Drug use: Never Review of Systems: Review of Systems All other systems reviewed and are negative. Are you taking any blood thinners? No Physical Examination: BP 112/78 Pulse 80 Ht 5' 11 (1.80m) Wt 165 lb (74.8kg) LMP 01/23/2022 BMI 23.02 kg/(m^2). Physical Exam General: Alert, oriented, No acute distress. Skin: No rash; warm. Head: Normocephalic, atraumatic. Eyes: EOMI, PERRLA. Lymph: No cervical lymphadenopathy. Thyroid: Neck supple. No thyromegaly. Heart: S1, S2. No murmurs, gallops or rubs. Lungs: Clear to auscultation bilaterally. No wheezes or crackles. Abdomen: Soft, tender in the right upper side, nondistended. Bowel sounds are normal. No organomegaly. Musculoskeletal: No joint swelling or effusion. Extremities: No cyanosis, clubbing or edema. Mental: Mood appropriate. Not depressed. Neuro: Cranial nerves II through XII intact. ASSESSMENT: Elevated bilirubin Abnormal results of liver function studies (primary encounter diagnosis) Right upper quadrant abdominal pain PLAN: -Repeat bilirubin and fractionated -Check hemolysis labs including LDH, Vargas test, and [id number] -Work-up elevated liver chemistries by checking iron studies, autoimmune panel, ceruloplasmin, hepatitis panel, and AMA -Check MRCP -Further recs to be made after reviewing the results of the above tests This office note has been created using [employer], a speech recognition software program, and may contain errors including punctuation, grammar, spelling, gender, and inappropriate words or phrases that pertain to the sytem. Ailyn Pichardo MD Office Visit on 02/20/22 MRI PANC/COREY WO/W IVCON MITOCHONDRIAL AB SCR HEP ACUTE PANEL/RNA CERULOPLASMIN BLD JEB BY IFA WITH REFLEX FERRITIN BLD IRON + TIBC LD LACTATE DEHYDRO RETIC COUNT BILIRUBIN FRACTION CONSULT TO GASTROENTEROLOGY VARGAS DIRECT No follow-ups on file. Ailyn Pichardo MD DATE: 02/20/22 TIME: 10:07 AM documented in this encounterBethesda North Hospital08-12-2022 Miscellaneous Notes* Telephone Encounter - Naina Flores RN - 02/14/2022 12:35 PM EDT Patient notified, voiced understanding. Does have appointment scheduled with GI on 02/20 Naina Flores RN * Telephone Encounter - oTmas Abarca MD - 02/14/2022 12:26 PM EDT Please let the patient know that the right upper quadrant ultrasound from today was read by the radiologist as normal. Also please forward this encounter to the ordering physician for their review when they return. This note was partially generated using [employer] voice recognition system, and there may be some incorrect words, spellings, and punctuation that were not noted in checking the note before saving. Tomas Abarca MD * Telephone Encounter - Chavo Jacobson RN - 02/07/2022 1:34 PM EDT Per patient she is feeling better and she does believe that the outside urgent care did contact hermom about the results (although she is unsure what they said). She has one more ultrasound as well because they had to split them up. Chavo Jacobson RN * Telephone Encounter - Irma Jay APRN.CNP - 02/07/2022 12:19 PM EDT Please contact patient to obtain update..have her symptoms fully resolved? She was being treated for UTI that was diagnosed by an outside urgent care--did they call with urine culture results? Bloodwork done showed direct bilirubin was elevated, but ultrasound and other labs were normal. I am going to consult with gastroenterology regarding whether further evaluation is needed. Econsult was sent. Thank you. Irma Jay APRN.FOAM CASTER documented in this encounterBethesda North Hospital08-12-2022 History of Present illness Narrative* Madalyn Rodgers RDMS - 02/14/2022 9:15 AM EDT Radiology Service Progress Note PATIENT NAME: Elizabeth Nuno DATE OF SERVICE: February 14, 2022 TIME: 10:50 AM PATIENT IDENTITY VERIFICATION COMPLETED USING TWO (2) IDENTIFIERS: Name and Date of confirmedby patient verbally. FALL SCREENING: Has the patient had 2 falls in the last year or 1 fall with injury or currently using an Ambulatory Assistive Device (Walker, Cane, Wheelchair, Crutches, etc.)? No PATIENT GENDER DATA: Female. status: : No status: N/A PATIENT RELEVANT IMPLANT DATA REVIEWED: Not Applicable RADIOLOGY DEPARTMENT: Ultrasound PERIPHERAL IV DATA: Not applicable SIGNED BY: Madalyn Rodgers RDMS RVT February 14, 2022 10:50 AM documented in this encounterBethesda North Hospital08-05-2022 History of Present illness Narrative* Maria T Wang MD - 02/07/2022 5:25 PM EDT Thank you for the consult request. E consult requested by Irma Jay APRN, FOAM CASTER. The following question was posed I am requesting a Gastroenterology E-Consult for my 21 year old female patient, Elizabeth Nuno for evaluation/treatment of Laboratory tests interpretation and Imaging testing concerns - for questions/concerns regarding imaging interpretation, please contact radiology.. My clinical question: I saw a 21yo female who was referred to our office for further evaluation after incidental finding of bilirubin in urine at outside urgent care. I sent a serum bili which was elevated, and consulted with the children's care line regarding next steps. We did an ultrasound that was normal. Fractionated bili showed elevated direct bili. Does patient require further evaluation at this point? Please assess and respond with your recommendations regarding Appointment needs: No Appt is currently scheduled, is a face to face consult necessary? and Interpretation of clinical finding. Recommendations: Many thanks for your E consult question. I did review the charts and he notes as well as the recentlabs. Most recent labs that were ordered were as follows- Component Latest Ref Rng & Units 01/30/2022 02/03/2022 Protein, Total 6.3 - 8.0 g/dL 7.2 Albumin 3.9 - 4.9 g/dL 4.7 Calcium 8.5 - 10.2 mg/dL 10.2 Bilirubin, Total 0.2 - 1.3 mg/dL 2.8 (H) 2.3 (H) Alkaline Phosphatase 34 - 123 U/L 65 AST 13 - 35 U/L 22 ALT 7 - 38 U/L 15 Glucose 74 - 99 mg/dL 93 BUN 7 - 21 mg/dL 9 Creatinine 0.58 - 0.96 mg/dL 0.84 Sodium 136 - 144 mmol/L 138 Potassium 3.7 - 5.1 mmol/L 3.6 (L) Chloride 97 - 105 mmol/L 103 CO2 22 - 30 mmol/L 24 Anion Gap 9 - 18 mmol/L 11 eGFR >=60 mL/min/1.73m 102 WBC 3.70 - 11.00 k/uL 3.27 (L) RBC 3.90 - 5.20 m/uL 4.65 Hemoglobin 11.5 - 15.5 g/dL 14.0 Hematocrit 36.0 - 46.0 % 41.6 MCV 80.0 - 100.0 fL 89.5 MCH 26.0 - 34.0 pg 30.1 MCHC 30.5 - 36.0 g/dL 33.7 RDW-CV 11.5 - 15.0 % 12.7 Platelet Count 150 - 400 k/uL 283 MPV 9.0 - 12.7 fL 11.3 Absolute nRBC <0.01 k/uL <0.01 Ferritin 14.7 - 205.1 ng/mL 30.4 TSH 0.510 - 4.300 mIU/L 0.848 Free T4 0.9 - 1.7 ng/dL 1.3 Bilirubin, Conjug <0.2 mg/dL 1.6 (H) GGT 6 - 46 U/L 10 CK 42 - 196 U/L 72 This labs trend suggest normal CBC, normal CMP except for an elevated total bilirubin, being predominantly conjugated. I did review the ultrasound images, unfortunately this was a renal ultrasound and I do not see the liver images If they have been done, would you be able to forward the report to me? The mildly elevated total bilirubin, predominantly being conjugated suggest that this is a cholestatic process. Within normal liver enzymes, this is unlikely to be cholangitic process. Normal GGT, with normal liver enzymes rules out many rare disorders like progressive familial intrahepatic cholestasis. So the likely possibility may be 3- 1. Gram-negative UTI with secondary cholestatic changes. 2. Drug-induced change-I see she is on nitrofurantoin 3. Rare possibility of Lesley-Benny syndrome. I think she will need to be seen by one of the coater helper for further evaluation. Can you please make sure that the liver ultrasound is done. Time spent reviewing the chart, labs and images and making recommendations-25 minutes. Maria T Wang MD MRCP (), MRCPC, FAAP Pediatric Student Accounts Coordinator & [address] Service Car Manager, Pediatric Nutrition Support & Intestinal Rehabilitation Car Manager, Intestinal & Multi-Visceral Transplant Car Manager, Glycogen Storage Disease Program Co-Director, Cyclic Vomiting Syndrome Program CC: Irma Jya APRN, FOAM CASTER Clotilde Fox MD documented in this encounterBethesda North Hospital08-04-2022 History of Present illness Narrative* RT Sonny(R) - 02/06/2022 10:45 AM EDT Radiology Service Progress Note PATIENT NAME: Elizabeth Nuno DATE OF SERVICE: February 06, 2022 TIME: 11:23 AM PATIENT IDENTITY VERIFICATION COMPLETED USING TWO (2) IDENTIFIERS: Name and Date of confirmedby patient verbally. FALL SCREENING: Has the patient had 2 falls in the last year or 1 fall with injury or currently using an Ambulatory Assistive Device (Walker, Cane, Wheelchair, Crutches, etc.)? No PATIENT GENDER DATA: Female. status: : No status: N/A PATIENT RELEVANT IMPLANT DATA REVIEWED: Not Applicable RADIOLOGY DEPARTMENT: Ultrasound PERIPHERAL IV DATA: Not applicable SIGNED BY: Rae Palacios RDMS February 06, 2022 11:23 AM documented in this encounterBethesda North Hospital08-02-2022 Miscellaneous Notes* Telephone Encounter - Sherry Funes RN - 02/04/2022 3:27 PM EDT Called and spoke with mother. She is aware of appointment information. Sherry Funes RN * Telephone Encounter - Naina Flores RN - 01/31/2022 4:31 PM EDT Ultrasound scheduled for 02/06. Left message for patient to call the office back to make aware Naina Flores RN * Telephone Encounter - Irma Jay APRN.CNP - 01/31/2022 8:36 AM EDT Spoke to Melisa Caballero MD (GI/hepatology) via [facility] regarding 's elevated serum bili level. She recommends additional blood work as well as an ultrasound. Spoke to regarding recommendations above. She is driving out of town for the weekend but will be able to do blood tests and ultrasound early next week. She is feeling similarly to yesterdayin office with intermittent abdominal pain. Denies severe abdominal pain, fever, or worsening symptoms. Orders placed for total and direct bili, GGT, CK. Order placed for ultrasound of RUQ and kidneys. Irma Jay APRN.YANA [facility] Miscellaneous Notes* Telephone Encounter - Melisa Caballero MD - 01/31/2022 5:37 PM EDT Spoke to Dr. Jay in the morning. Noted that the POC urinalysis showed positive bilirubin. Of note, though this is normally felt to be abnormal and indicative of liver disease, the patient's serum enzymes were normal. The total bilirubin was slightly elevated but no direct bilirubin was done. Recommendation is to get a fractionated bilirubin to see what the direct bilirubin is in the serum.If this is elevated, then further evaluation of the liver by me would be indicated. I also recommended to get a GGT as an additional liver injury test. US of the abdomen would be useful to look for any tissue abnormality of the liver. Another more likely scenario if that the POC test was a false positive. See reference below MD Daniel Yeager, PhD, TRACY Chavez, Are Unexpected Positive Dipstick Urine Bilirubin ResultsClinically Significant? A Retrospective Review, Laboratory Medicine, Volume 45, Issue 1, August 2013, Pages 59 61, [email or web address] * Telephone Encounter - Elizabeth Charlie Gomez - 01/31/2022 9:04 AM EDTSummary: [facility] Non Urgent Please call Irma Jay [phone] to discuss POC bilirubin in urine and blood test shows elevated bilirubin. Elizabeth Gomez [facility]* Diagnosis Serum total bilirubin elevated- Primary Jaundice, unspecified, not of documented in this encounter [facility]* Diagnosis Onset Date Resolution Status Routine sports physical exam acute Bilirubin in urine acute Urinary tract infection with hematuria acute [facility] Work Phone: Evaluation note* Diagnosis Serum total bilirubin elevated Jaundice, unspecified, not of [facility]* Diagnosis Cholestasis- Primary Other specified disorders of biliary tract [facility]* Diagnosis Serum total bilirubin elevated Jaundice, unspecified, not of documented in this encounter [facility]* Diagnosis Abnormal results of liver function studies- Primary Nonspecific abnormal results of liver function study Elevated bilirubin Jaundice, unspecified, not of Right upper quadrant abdominal pain Abdominal pain, right upper quadrant documented [facility]* Diagnosis Elevated bilirubin Jaundice, unspecified, not of Abnormal results of liver function studies Nonspecific abnormal results of liver function study documented in this encounter [facility]* Diagnosis Iron deficiency anemia, unspecified iron deficiency anemia type- Primary documented in this encounter [facility] note* Diagnosis History of iron deficiency- Primary Personal history of diseases of blood and blood-forming organs documented in this encounter [facility] note* Diagnosis Serum total bilirubin elevated- Primary Jaundice, unspecified, not of documented in this encounter [facility] note* Diagnosis Encounter for general adult medical examination without abnormal findings- Primary Unspecified general medical examination History of iron deficiency Personal history of diseases of blood and blood-forming organs Serum total bilirubin elevated Jaundice, unspecified, not of documented in this encounter [facility] for referral (narrative)* Diagnostic Procedure Only (Routine) - Authorized Specialty Diagnoses / Procedures Referred By Contac t Referred To Contact US IMAGING Diagnoses Serum total bilirubin elevated Procedures US KIDNEY/BLADDER US RETROPERITONEAL REAL TIME W/IMAGE COMPLETE Irma Jay APRN.CNP [address] [place] [address] Us Imaging Referral ID Status Reason Start Date Expiration Date Visits Requested Visits Authorized [id number] Authorized Auto-Generat ed Referral 01/31/2022 03/02/2023 1 1 * Diagnostic Procedure Only (Routine) - Authorized Specialty Diagnoses / Procedures Referred By Contac t Referred To Contact US IMAGING Diagnoses Serum total bilirubin elevated Procedures US ABD RT UPPER QUADRANT US ABDOMINAL REAL TIME W/IMAGE LIMITED Irma Jay APRN.FOAM CASTER [address] [place] [address] Us Imaging Referral ID Status Reason Start Date Expiration Date Visits Requested Visits Authorized [id number] Authorized Auto-Generat ed Referral 01/31/2022 03/02/2023 1 1 [facility] for referral (narrative)* Diagnostic Procedure Only (Routine) - Closed Specialty Diagnoses / Procedures Referred By Contac t Referred To Contact US IMAGING Diagnoses Serum total bilirubin elevated Procedures US KIDNEY/BLADDER US RETROPERITONEAL REAL TIME W/IMAGE COMPLETE Irma Jay APRN.CNP [address] [place] [address] Us Imaging Referral ID Status Reason Start Date Expiration Date V isits Requested Visits Authorized [id number] Closed Auto-Generate d Referral 01/31/2022 03/02/2023 1 1 [facility] for referral (narrative)* Diagnostic Procedure Only (Routine) - Closed Specialty Diagnoses / Procedures Referred By Contac t Referred To Contact US IMAGING Diagnoses Serum total bilirubin elevated Procedures US ABD RT UPPER QUADRANT US ABDOMINAL REAL TIME W/IMAGE LIMITED Irma Jay APRN.CNP [address] [place] [address] Us Imaging Referral ID Status Reason Start Date Expiration Date V isits Requested Visits Authorized [id number] Closed Auto-Generate d Referral 01/31/2022 03/02/2023 1 1 [facility] for referral (narrative)No reason for referral information availableSt. [facility] Work Phone: [place] for visit Narrative* Diagnostic Procedure Only (Routine) - Closed Specialty Diagnoses / Procedures Referred By Contac t Referred To Contact US IMAGING Diagnoses Serum total bilirubin elevated Procedures US KIDNEY/BLADDER US RETROPERITONEAL REAL TIME W/IMAGE COMPLETE Irma Jay APRN.FOAM CASTER [address] [place] [address] Us Imaging Referral ID Status Reason Start Date Expiration Date V isits Requested Visits Authorized [id number] Closed Auto-Generate d Referral 01/31/2022 03/02/2023 1 1 [facility] Chief Complaint and Reason for Visit Chief Complaint COLLEGE PHYSICAL ABDOMINAL PAIN/ >24HRS Reason for Visit Routine sports physi jad exam Bilirubin in urine Urinary tract infection with hematuria Chief Complaint Admit Date Annual (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) August 05, 2024 3 :57pm Jacqueline Insertion *copay 19.00 October 07, 2024 4:11pm IUD check *copay 19.00 November 17, 2024 11 :59am Reason for Visit Admit Date Encounter for routine gynecological exam ination August 05, 2024 3:57pm Encounter for IUD insertion October 07 4:11pm Chief Complaint Admit Date Jacqueline Insertion *copay 19.00 October 07, 2024 4:11pm IUD check *copay 19.00 November 17, 2024 11 :59am TDAP *ok per MS January 03, 2025 11:30 am Reason for Visit Admit Date Encounter for IUD insertion October 07 4:11pm IUD check up November 17, 2024 11:59 am Reason for Referral Specialty Diagnoses / Procedures Referred By Cesar jaramillo Referred To Contact MR IMAGING Diagnoses Elevated bilirubin Abnormal results of liver function studies Procedures MRI PANC/COREY WO/W IVCON MRI ABDOMEN W/O & W/CONTRAST MATERIAL Ailyn Pichardo MD [address] [place] [address] Mr Imaging Referral ID Status Reason Start Date Expiration Date V isits Requested Visits Authorized [id number] Open Auto-Generate d Referral 02/20/2022 03/22/2023 1 1 Referral ID Status Reason Start Date Expiration Date V isits Requested Visits Authorized [id number] Closed Auto-Generate d Referral 02/26/2022 04/27/2022 1 1 Summary Purpose Family History No Family History Records Found Relationship Condition Age at Onset Recorded Date/T demetrius father Parkinson's disease Unknown unrelated friend Malignant neoplasm of breast Unknown Advance Directives No Advanced Directives Records FoundNo Advanced Directives Records Found Additional Source Comments Source Comments (unrecognize d section and content) In the event this informatio n is protected by the Federal Confidentiality of Alcohol and Drug Abuse Patient Records regulations: The Federal rules restrict any use of the information to criminally investigate or prosecute any alcohol or drug abuse patient.[facility] HospitalIn the event this information is protected by the Federal Confidentiality of Alcohol and Drug Abuse Patient Records regulations: The Federal rules restrict any use of the information to criminally investigate or prosecute any alcohol or drug abuse patient.[facility] HospitalIn the event this information is protected by the Federal Confidentiality of Alcohol and Drug Abuse Patient Records regulations: The Federal rules restrict any use of the information to criminally investigate or prosecute any alcohol or drug abuse patient.[facility] HospitalIn the event this information is protected by the Federal Confidentiality of Alcohol and Drug Abuse Patient Records regulations: The Federal rules restrict any use of the information to criminally investigate or prosecute any alcohol or drug abuse patient.[facility] HospitalIn the event this information is protected by the Federal Confidentiality of Alcohol and Drug Abuse Patient Records regulations: The Federal rules restrict any use of the information to criminally investigate or prosecute any alcohol or drug abuse patient.[facility] HospitalIn the event this information is protected by the Federal Confidentiality of Alcohol and Drug Abuse Patient Records regulations: The Federal rules restrict any use of the information to criminally investigate or prosecute any alcohol or drug abuse patient.[facility] HospitalIn the event this information is protected by the Federal Confidentiality of Alcohol and Drug Abuse Patient Records regulations: The Federal rules restrict any use of the information to criminally investigate or prosecute any alcohol or drug abuse patient.[facility] HospitalIn the event this information is protected by the Federal Confidentiality of Alcohol and Drug Abuse Patient Records regulations: The Federal rules restrict any use of the information to criminally investigate or prosecute any alcohol or drug abuse patient.[facility] HospitalIn the event this information is protected by the Federal Confidentiality of Alcohol and Drug Abuse Patient Records regulations: The Federal rules restrict any use of the information to criminally investigate or prosecute any alcohol or drug abuse patient.[facility] HospitalIn the event this information is protected by the Federal Confidentiality of Alcohol and Drug Abuse Patient Records regulations: The Federal rules restrict any use of the information to criminally investigate or prosecute any alcohol or drug abuse patient.[facility] HospitalIn the event this information is protected by the Federal Confidentiality of Alcohol and Drug Abuse Patient Records regulations: The Federal rules restrict any use of the information to criminally investigate or prosecute any alcohol or drug abuse patient.[facility] HospitalIn the event this information is protected by the Federal Confidentiality of Alcohol and Drug Abuse Patient Records regulations: The Federal rules restrict any use of the information to criminally investigate or prosecute any alcohol or drug abuse patient.[facility] Reason for Visit (unrecogniz ed section and content) Reason Comments [facility] Reason Comments Results Reason Comments Radiology US Specialty Diagnoses / Procedures Referred By Contac t Referred To Contact US IMAGING Diagnoses Serum total bilirubin elevated Procedures US ABD RT UPPER QUADRANT US ABDOMINAL REAL TIME W/IMAGE LIMITED Irma Jay APRN.FOAM CASTER [address] [place] [address] Us Imaging Referral ID Status Reason Start Date Expiration Date V isits Requested Visits Authorized [id number] Closed Auto-Generate d Referral 01/31/2022 03/02/2023 1 1 Reason Comments Elevated bilirubin US 02/14/22, Labs 02/03 Specialty Diagnoses / Procedures Referred By Contac t Referred To Contact Gastroenterology Diagnoses Elevated bilirubin Procedures CONSULT TO GASTROENTEROLOGY OFFICE/OUTPATIENT [facility] 60-74 MINUTES Clotilde Fox MD [address] [place] [address] Referral ID Status Reason Start Date Expiration Date V isits Requested Visits Authorized [id number] Closed PCP Requested Referral 02/08/2022 02/08/2023 1 1 Reason Comments Results Specialty Diagnoses / Procedures Referred By Contac t Referred To Contact MR IMAGING Diagnoses Elevated bilirubin Abnormal results of liver function studies Procedures MRI PANC/COREY WO/W IVCON MRI ABDOMEN W/O & W/CONTRAST MATERIAL Ailyn Pichardo MD [address] [place] [address] Mr Imaging Referral ID Status Reason Start Date Expiration Date V isits Requested Visits Authorized [id number] Closed Auto-Generate d Referral 02/26/2022 04/27/2022 1 1 Reason Comments Discuss lab work Abnormal ferritin re sults noted from Dr. Pichardo Reason Comments Follow up Medication Check Reason Comments [employer] Teams (unrecognized sec tion and content) Cadmium Burner Relationship Specialty Start Date End Date Clotilde Fox MD [address] [place], [place] [address] PCP - General 06/23/02 Cadmium Burner Relationship Specialty Start Date End Date Clotilde Fox MD [address] [place], [place] [id number] PCP - General 06/23/02 Cadmium Burner Relationship Specialty Start Date End Date Clotilde Fox MD [address] [place], [place] [id number] PCP - General 06/23/02 Cadmium Burner Relationship Specialty Start Date End Date Clotilde Fox MD [address] [facility] [place] [address] PCP - General 06/23/02 Cadmium Burner Relationship Specialty Start Date End Date Clotilde Fox MD [address] [facility] [place] [address] PCP - General 06/23/02 Cadmium Burner Relationship Specialty Start Date End Date Clotilde Fox MD [address] [facility] [place] [address] PCP - General 06/23/02 Cadmium Burner Relationship Specialty Start Date End Date Clotilde Fox MD [address] [facility] [place] [address] PCP - General 06/23/02 Cadmium Burner Relationship Specialty Start Date End Date Clotilde Fox MD [address] [facility] [place] [address] PCP - General 06/23/02 Cadmium Burner Relationship Specialty Start Date End Date Clotilde Fox MD [address] [facility] [place] [address] PCP - General 06/23/02 Cadmium Burner Relationship Specialty Start Date End Date Clotilde Fox MD [address] [facility] [place] [address] PCP - General 06/23/02 Team Status: Inactive Member Role Status Dates Dr. Clotilde Fox MD Referring Provider Active S tart: August 05, 2024 End: August 05, 2024 Dr. Alisson Martell MD Attending Provider Active Start: August 05, 2024 End: August 05, 2024 Team Status: Inactive Member Role Status Dates Dr. Alisson Martell MD Attending Provider Active Start: August 05, 2024 End: August 05, 2024 Dr. Alisson Martell MD Referring Provider Active Start: August 05, 2024 End: August 05, 2024 Team Status: Inactive Member Role Status Dates Dr. Alisson Martell MD Attending Provider Active Start: October 07, 2024 End: October 07, 2024 Team Status: Inactive Member Role Status Dates Dr. Alisson Martell MD Attending Provider Active Start: November 17, 2024 End: November 17, 2024 Team Status: Inactive Member Role/Relationship Status Dates Dr. Alisson Martell MD Attending Provider Active Start: October 07, 2024 End: October 07, 2024 Team Status: Inactive Member Role/Relationship Status Dates Dr. Alisson Martell MD Attending Provider Active Start: November 17, 2024 End: November 17, 2024 Team Status: Inactive Member Role/Relationship Status Dates Dr. Nuris Ta DO Attending Provider Activ e Start: January 03, 2025 End: January 03, 2025 Goals (unrecognized section and content) Goals may be documented in a n alternate sectionGoals may be documented in an alternate sectionGoals may be documented in an alternate section INFORMATION SOURCE (unrecogn ized section and content) DATE CREATED AUTHOR 03/08/2023 [facility] DATE CREATED AUTHOR AUTHOR'S SILVIO LEGER 01/13/2025 [facility] FOR RECORDS PERTAINING TO PATIENTS WHO ARE OR HAVE BEEN ENROLLED IN A CHEMICAL DEPENDENCY/SUBSTANCEABUSE PROGRAM, SOME INFORMATION MAY BE OMITTED. This clinical summary was aggregated from multiple sources. Caution should be exercised in using it in the provision of clinical care. This summary normalizes information from multiple sources, and as a consequence, information in this document may materially change the coding, format and clinical context of patient data. In addition, data may be omitted in some cases. CLINICAL DECISIONS SHOULD BE BASED ON THE PRIMARY CLINICAL RECORDS. [employer] provides no warranty or guarantee of the accuracy or completeness of information in this document.
--- OUTSIDE RECORDS SUMMARY | 2025-04-21 12:07 | XMS RPT_ITS | CCD ---
Author Organization [facility] Care Team Providers Care Construction Field Engineer Name Role Phone Ashleigh Caraballo LPN Unavailable Unavailab Ashleigh Herrera LPN Unavailable Unavailab Clotilde Aparicio MD Primary Care Provider Dr. Clotilde Fox Primary Care Provider Dr. Clotilde Fox Referring Provider Rosales MCKNIGHT, [place] Jung Muniz Attending Provider [...] Dr. Alisson Martell MD Referring Provider [phone] Dr. Alisson Martell MD Attending Provider Dr. [...] sources) Amoxicillin; Translations: [AMOXICILLIN] Drug Allergy 03-03-2013 [facility] (13 sources) cefpodoxime; Translations: [CEFPODOXIME PROXETIL] Drug Allergy 09-24-2005 [facility] Work Phone: (2 sources) cefpodoxime Drug Allergy 10-07-2024 [facility] (1 source) Amoxicillin Drug Allergy 01-03-2025 [facility] (1 source) cefpodoxime Drug Allergy 01-03-2025 [facility] Medications Current Medications Medication Drug [...] the MR contrast administration guidelines link. levonorgestrel 0.919783 mg/hr intrauterine system (2 sources) Progestin, Progestin-containin [...] Office Visit Reporton 2024 Office Visit Report [facility] [address] [place] [address] OFFICE VISIT Date of Service: 01/03/25 MR#: [id number] Acct: [id number] Patient: ELIZABETH DUKE Rep #: [id number] : 2000 Provider: Dr. Nuris Chu DO Age/Sex: 24/F Location: [facility] Status: Signed Intake Vital Signs 11/17/24 12:06 01/03/25 11:34 Height 5 ft 11 in 5 ft 11 in Weight: 178 lb BMI 24.8 BP 123/76 H Intake Visit Reasons: TDAP *ok per MS Chief Complaint: Annual Web Production Artist Required: No Is patient in pain?: No [...] Performing Provider: Nuris Ta DO Performing Location: [facility] Administered by: Destiney Peralta on 01/03/25 11:34 Dose Route Admin Location Dispensed Lot Number Expiration Date NDC Man ufacturer 0.5 mL IM Right Deltoid 0.5 mL [id number] 01/02/27 56778-655-43 SANOFI- PASTEUR VIS Given Date VIS Provided [...] Cosigner Signature: Date (if applicable) CC: Normal [facility] Nut Picker Office Visit Reporton 11-17-2024 Nut Picker Office Visit Report [facility] [address], [facility] [address] [place] [address] OFFICE VISIT Date of Service: 11/17/24 MR#: [id number] Acct: [id number] Name: ELIZABETH DUKE Rep #: [id number] : 2000 Provider: Dr. 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 Normal [facility] PAP I-G w/rfx hrHPV-Aptimaon 08-10-2024 ADEQ Comment Normal . [facility] Comment on above: Order Comment: Speci men Comment: [id number] Specimen Comment: Source.............Cervix;Endocervix Specimen Comment: No. of containers..01 ThinPrep Vial Result Comment: Sati sfactory for evaluation. Endocervical and/or squamous metaplastic cells (endocervical component) are present. Performed By: #### L 7400.0353 #### [facility] [place], [address] COMM . Normal . [facility] Comment on above: Order Comment: Speci men Comment: [id number] Specimen Comment: Source.............Cervix;Endocervix Specimen Comment: No. of containers..01 ThinPrep Vial Performed By: #### L 7400.0353 #### [facility] [address] [place], [place], [address] COMMENT Comment Normal . [facility] Comment on above: Order Comment: Speci men Comment: [id number] Specimen Comment: Source.............Cervix;Endocervix Specimen Comment: No. of containers..01 ThinPrep Vial Result Comment: This liquid based ThinPrep(R) pap test was screened with the use of an image guided system. Performed By: #### L 7400.0353 #### [facility] [address] [place], [place], [address] DIAG Comment Normal . [facility] Comment on above: Order Comment: Speci men Comment: [id number] Specimen Comment: Source.............Cervix;Endocervix Specimen Comment: No. of containers..01 ThinPrep Vial Result Comment: NEGA TIVE FOR INTRAEPITHELIAL LESION OR MALIGNANCY. Performed By: #### L 7400.0353 #### [facility] [address] [facility] [place], [place], [address] HPV RFLX Comment Normal . [facility] Comment on above: Order Comment: Speci men Comment: [id number] Specimen Comment: Source.............Cervix;Endocervix Specimen Comment: No. of containers..01 ThinPrep Vial Result Comment: The HPV DNA reflex criteria were not met with this specimen result therefore, no HPV testing was performed. Performed at: [address] [id number] Tube Buffer: Franco Castro PhD, Phone: [phone] Performed at: [address] [id number] Tube Buffer: Carla Goldstein MD, Phone: [phone] Performed By: #### L 7400.0353 #### [facility] [address] [place], [place], [id number] PAPSMR Comment Normal . [facility] Comment on above: Order Comment: Speci men Comment: [id number] Specimen Comment: Source.............Cervix;Endocervix Specimen Comment: No. of [...] occur. Performed By: #### L 7400.0353 #### [facility] [address] [place], [address] PERFORM Comment Normal . [facility] Comment on above: Order Comment: Speci men Comment: [id number] Specimen Comment: Source.............Cervix;Endocervix Specimen Comment: No. of containers..01 ThinPrep Vial Result Comment: Norma Ann Instrument Setter (ASCP) Performed By: #### L 7400.0353 #### [facility] [address] [place], [place], [address] Cervical or vagninal specime n microscopic examination by cytology stain (reported asOrdered By: Alisson Martell on 08-05-2024 Cytology report Cyto stain Doc (Cvx/Vag) Comment . [facility] Comment on above: The Pap smear is a s creening test designed to aid in thedetection of premalignant and malignant conditions of theuterine cervix. It is not a diagnostic procedure andshould not be used as the sole means of detecting cervicalcancer. Both false-positive and false-negative reports dooccur. Laboratory - CytologyOrdered By: Alisson Martell on 08-05-2024 Social Media Assistant Cyto stain Nom (Cvx/Vag) [ID] Comment . [facility] Comment on above: Rae Ann, Cyto technologist (ASCP) Laboratory - Miscellaneous t estsOrdered By: Alisson Martell on 08-05-2024 Service comment (Unsp spec) [Interp] . . [facility] No Panel InformationOrdered By: Alisson Martell on 08-05-2024 Pap Smear Specimen Adequacy Comment . [facility] Comment on above: Satisfactory for jonnie luation. Endocervical and/or squamous metaplasticcells (endocervical component) are present. Nut Picker Office Visit Reporton 08-05-2024 Nut Picker Office Visit Report [facility] [address], [address] [place] [address] OFFICE VISIT Date of Service: 08/05/24 MR#: [id number] Acct: [id number] Name: ELIZABETH DUKE Rep #: [id number] : 2000 Provider: Dr. 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 Normal [facility] CBC W/Diff, Automatedon 07-06-2024 Absolute Lymph 2.43 X10 3/uL Normal 0.83-4.51 [facility] Comment on above: Performed By: #### L 500.4050, L100.0100, L500.4100 #### [facility] [address] [place], [address] Absolute Neut 1.4 X10 3/uL Low 2.0-7.7 [facility] Comment on above: Performed By: #### L 500.4050, L100.0100, L500.4100 #### [facility] [address] [place], [address] Basophils/100 WBC (Bld) 1.4 % High 0-1 [facility] Comment on above: Performed By: #### L 500.4050, L100.0100, L500.4100 #### [facility] [address] [place], [address] Eosinophils/100 WBC (Bld) 0.9 % Normal 0-5 [facility] Comment on above: Performed By: #### L 500.4050, L100.0100, L500.4100 #### [facility] [address] [place], [address] Erythrocyte distribution width (RBC) [Ratio] 12.4 % Normal 11.6-14.6 [facility] Comment on above: Performed By: #### L 500.4050, L100.0100, L500.4100 #### [facility] [address] [place], [address] Hematocrit (Bld) [Volume fraction] 42.6 % Normal 37-47 [facility] Comment on above: Performed By: #### L 500.4050, L100.0100, L500.4100 #### [facility] [address] [place], [address] Hemoglobin (Bld) [Mass/Vol] 13.9 g/dL Normal 12.0-15.0 [facility] Comment on above: Performed By: #### L 500.4050, L100.0100, L500.4100 #### [facility] [address] [place], [address] IG% 0.200 Normal 0.0-0.9 [facility] Comment on above: Result Comment: IG% - Immature Granulocytes (promyelocytes, myelocytes and metamyelocytes) > 1% indicates that a LEFT SHIFT is Present. Performed By: #### L 500.4050, L100.0100, L500.4100 #### [facility] [address] [place], [address] Lymphocytes/100 WBC (Bld) 57.2 % High 19-41 [facility] Comment on above: Performed By: #### L 500.4050, L100.0100, L500.4100 #### [facility] [address] [place], [address] MCH (RBC) [Entitic mass] 29.6 pg Normal 27.0-32.0 [facility] Comment on above: Performed By: #### L 500.4050, L100.0100, L500.4100 #### [facility] [address] [place], [address] MCHC (RBC) [Mass/Vol] 32.6 g/dL Normal 32-36 [facility] Comment on above: Performed By: #### L 500.4050, L100.0100, L500.4100 #### [facility] [address] [place], [address] MCV (RBC) [Entitic vol] 90.8 fL Normal 81-99 [facility] Comment on above: Performed By: #### L 500.4050, L100.0100, L500.4100 #### [facility] [address] [place], [address] Monocytes/100 WBC (Bld) 7.5 % Normal 0-10 [facility] Comment on above: Performed By: #### L 500.4050, L100.0100, L500.4100 #### [facility] [address] [place], [address] Neutrophils/100 WBC (Bld) 32.8 % Low 47-70 [facility] Comment on above: Performed By: #### L 500.4050, L100.0100, L500.4100 #### [facility] [address] [place], [address] Nucleated RBC (Bld) [#/Vol] 0 10*3/uL Normal 0-5 [facility] Comment on above: Performed By: #### L 500.4050, L100.0100, L500.4100 #### [facility] [address] [place], [address] Platelet mean volume (Bld) [Entitic vol] 10.9 fL Normal 6.2-12.0 [facility] Comment on above: Performed By: #### L 500.4050, L100.0100, L500.4100 #### [facility] [address] [place], [address] Platelets (Bld) [#/Vol] 340 10*3/uL Normal 150-450 [facility] Comment on above: Performed By: #### L 500.4050, L100.0100, L500.4100 #### [facility] [address] [place], [address] RBC (Bld) [#/Vol] 4.69 10*6/uL Normal 4.2-5.4 [facility] Comment on above: Performed By: #### L 500.4050, L100.0100, L500.4100 #### [facility] [address] [place], [address] RDW SD 40.9 fl Normal 35.1-43.9 [facility] Comment on above: Performed By: #### L 500.4050, L100.0100, L500.4100 #### [facility] [address] [place], [address] WBC (Bld) [#/Vol] 4.3 10*3/uL Low 4.4-11.0 [facility] Comment on above: Performed By: #### L 500.4050, L100.0100, L500.4100 #### [facility] [address] [place], [address] Comprehensive Metabolic Prof [facility] 07-19-2024 Albumin [Mass/Vol] 4.0 g/dL Normal 3.2-5.0 [facility] Comment on above: Performed By: #### L 500.4050, L100.0100, L500.4100 #### [facility] [address] [place], [address] Albumin/Globulin [Mass ratio] 1.1 {ratio} Normal 0.9-2.4 [facility] Comment on above: Performed By: #### L 500.4050, L100.0100, L500.4100 #### [facility] [address] [place], [address] ALK P 70 U/L Normal 45-117 [facility] Comment on above: Performed By: #### L 500.4050, L100.0100, L500.4100 #### [facility] [address] [place], [address] ALT [Catalytic activity/Vol] 18 U/L Normal 13-56 [facility] Comment on above: Performed By: #### L 500.4050, L100.0100, L500.4100 #### [facility] [address] [place], [address] AST [Catalytic activity/Vol] 11 U/L Low 15-37 [facility] Comment on above: Performed By: #### L 500.4050, L100.0100, L500.4100 #### [facility] [address] [place], [address] Bilirubin [Mass/Vol] 2.90 mg/dL High 0.20-1.00 [facility] Comment on above: Result Comment: For patients on eltrombopag therapy, use of Dimension Terry TBIL is not recommended. Performed By: #### L 500.4050, L100.0100, L500.4100 #### [facility] [address] [place], [address] BUN/CRE 10.3 RATIO Normal 10-20 [facility] Comment on above: Performed By: #### L 500.4050, L100.0100, L500.4100 #### [facility] [address] [place], [address] CA,Total 9.2 mg/dL Normal 8.5-10.1 [facility] Comment on above: Performed By: #### L 500.4050, L100.0100, L500.4100 #### [facility] [address] [place], [address] Chloride [Moles/Vol] 107 mmol/L Normal 98-107 [facility] Comment on above: Performed By: #### L 500.4050, L100.0100, L500.4100 #### [facility] [address] [place], [address] CO2 [Moles/Vol] 28.0 mmol/L Normal 21.0-32.0 [facility] Comment on above: Performed By: #### L 500.4050, L100.0100, L500.4100 #### [facility] [address] [place], [address] Creatinine [Mass/Vol] 0.87 mg/dL Normal 0.55-1.02 [facility] Comment on above: Result Comment: The validity of the calculated GFR GFRAA in patients over 70 years has not been determined. Clinical correlation is essential. Performed By: #### L 500.4050, L100.0100, L500.4100 #### [facility] [address] [place], [address] EST GFR - AA 104 mL/min Normal >60 [facility] Comment on above: Result Comment: Afri can Swazi GFR Calc Performed By: #### L 500.4050, L100.0100, L500.4100 #### [facility] [address] [place], [address] GAP 4 Low 5-15 [facility] Comment on above: Performed By: #### L 500.4050, L100.0100, L500.4100 #### [facility] [address] [place], [address] GFR/1.73 sq M.predicted among non-blacks MDRD (S/P/Bld) [Vol rate/Area] 86 mL/min/{1.73_m2} Normal >60 [facility] Comment on above: Result Comment: Non- GFR Calc Performed By: #### L 500.4050, L100.0100, L500.4100 #### [facility] [address] [place], [address] Globulin (S) [Mass/Vol] 3.5 g/dL Normal 2.2-4.2 [facility] Comment on above: Performed By: #### L 500.4050, L100.0100, L500.4100 #### [facility] [address] [place], [address] Glucose [Mass/Vol] 79 mg/dL Normal 74-106 [facility] Comment on above: Performed By: #### L 500.4050, L100.0100, L500.4100 #### [facility] [address] [place], [address] Potassium [Moles/Vol] 3.6 mmol/L Normal 3.5-5.1 [facility] Comment on above: Performed By: #### L 500.4050, L100.0100, L500.4100 #### [facility] [address] [place], [address] Sodium [Moles/Vol] 138 mmol/L Normal 136-145 [facility] Comment on above: Performed By: #### L 500.4050, L100.0100, L500.4100 #### [facility] [address] [place], [address] T PROT 7.5 g/dL Normal 6.4-8.2 [facility] Comment on above: Performed By: #### L 500.4050, L100.0100, L500.4100 #### [facility] [address] [place], [address] Urea nitrogen [Mass/Vol] 9 mg/dL Normal 7-18 [facility] Comment on above: Performed By: #### L 500.4050, L100.0100, L500.4100 #### [facility] [address] [place], [address] Lipid Profileon 07-19-2024 Cholesterol [Mass/Vol] 134 mg/dL Normal 200 [facility] Comment on above: Result Comment: <200 mg/dL Desirable 200-240 mg/dL Borderline >240 mg/dL High Risk Performed By: #### L 500.4050, L100.0100, L500.4100 #### [facility] [address] [place], [address] Cholesterol in HDL [Mass/Vol] 56 mg/dL Normal [facility] Comment on above: Result Comment: The drugs N-Acetylcysteine and Metamizole may falsely depress this assay. Reference Range HDL <40 mg/dL Low HDL Cholesterol HDL >or= 60 mg/dL High HDL Cholesterol Performed By: #### L 500.4050, L100.0100, L500.4100 #### [facility] [address] [place], [address] Cholesterol in LDL [Mass/Vol] 64 mg/dL Normal 0-130 [facility] Comment on above: Performed By: #### L 500.4050, L100.0100, L500.4100 #### [facility] [address] [place], [address] Cholesterol in VLDL [Mass/Vol] 14 mg/dL Normal 5-40 [facility] Comment on above: Performed By: #### L 500.4050, L100.0100, L500.4100 #### [facility] [address] [place], [address] Triglyceride [Mass/Vol] 69 mg/dL Normal [facility] Comment on above: Result Comment: The drugs N-Acetylcysteine and Metamizole may falsely depress this assay. Serum Triglycerides Reference Interval Normal <150 mg/dL Borderline high 150 - 199 mg/dL High 200 - 499 mg/dL Very High > or = 500 mg/dL Performed By: #### L 500.4050, L100.0100, L500.4100 #### [facility] [address] [place], [address] Internal Medicine Office Vis iton 07-15-2024 Internal Medicine Office Visit [facility] [address] [place] [address] OFFICE VISIT Date of Service: 07/15/24 MR#: [id number] Acct: [id number] Name: ELIZABETH DUKE Rep #: [id number] : 2000 Provider: JUAN LUIS Erickson Age/Sex: 23/F Location: [facility] Status: Signed Intake Vital Signs 07/15/24 07:51 [...] - PPWKS SENT Chief Complaint: est care Web Production Artist Required: No Accompanied by: Self Is patient [...] occupational status: employed 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 Normal [facility] CBC panel Auto (Bld)on 02-24 Erythrocyte distribution width (RBC) [Ratio] 12.0 % 11.5 - 15.0 % [facility] Hematocrit (Bld) [Volume fraction] 43.9 % 36.0 - 46.0 % [facility] Hemoglobin (Bld) [Mass/Vol] 14.8 g/dL 11.5 - 15.5 g/dL [facility] MCH (RBC) [Entitic mass] 30.1 pg 26.0 - 34.0 pg [facility] MCHC (RBC) [Mass/Vol] 33.7 g/dL 30.5 - 36.0 g/dL [facility] MCV (RBC) [Entitic vol] 89.2 fL 80.0 - 100.0 fL [facility] Nucleated RBC (Bld) [#/Vol] <0.01 k/uL [facility] Platelet mean volume (Bld) [Entitic vol] 11.1 fL 9.0 - 12.7 fL [facility] Platelets (Bld) [#/Vol] 341 10*3/uL 150 - 400 k/uL [facility] RBC (Bld) [#/Vol] 4.92 10*6/uL 3.90 - 5.2 0 m/uL [facility] WBC (Bld) [#/Vol] 7.12 10*3/uL 3.70 - 11. 00 k/uL [facility] FERRITIN BLDon 02-24-2023 Ferritin [Mass/Vol] 18.5 ng/mL 14.7 - 2 05.1 ng/mL [facility] bilirubin panel [Ma ss/Vol]on 02-24-2023 Bilirubin [Mass/Vol] 2.5 mg/dL High 0.2 - 1 .3 mg/dL [facility] Bilirubin.conjugated [Mass/Vol] 1.7 mg/dL High <0.2 mg/dL [facility] Bilirubin.indirect [Mass/Vol] 0.8 mg/dL <1.4 mg/dL [facility] CBC panel Auto (Bld)on 02-23 Erythrocyte distribution width (RBC) [Ratio] 12.0 % Normal 11.5-15.[address] [facility] Comment on above: Order Comment: Speci men Type: BLOOD SPECIMEN Ordering Facility: [facility] Address: [address] [place] [address] Performed By: #### 5 8410-2 #### [facility] CLIA [id number] [facility] [address] [place] Hematocrit (Bld) [Volume fraction] 43.9 % Normal 36.0-46.[address] [facility] Comment on above: Order Comment: Joycei pricila Type: BLOOD SPECIMEN Ordering Facility: [facility] Address: [address] [place] [address] Performed By: #### 5 8410-2 #### [facility] CLIA [id number] [facility] [address] [place] Hemoglobin (Bld) [Mass/Vol] 14.8 g/dL Normal 11.5-15.[address] [facility] Comment on above: Order Comment: Speci men Type: BLOOD SPECIMEN Ordering Facility: [facility] Address: [address] [place] [address] Performed By: #### 5 8410-2 #### [facility] CLIA [id number] [address] [place] [address] [place] MCH (RBC) [Entitic mass] 30.1 pg Normal 26.0-34.[address] [facility] Comment on above: Order Comment: Speci men Type: BLOOD SPECIMEN Ordering Facility: [facility] Address: [address] [place], [place] [address] Performed By: #### 5 8410-2 #### [facility] CLIA [id number] [address] [place] [address] [place] MCHC (RBC) [Mass/Vol] 33.7 g/dL Normal 30.5-36.0 [facility] Comment on above: Order Comment: Speci men Type: BLOOD SPECIMEN Ordering Facility: [facility] Address: [address] [place], [place] [address] Performed By: #### 5 8410-2 #### [facility] CLIA [id number] [address] [place] [address] [place] MCV (RBC) [Entitic vol] 89.2 fL Normal 80.0-100.[address] [facility] Comment on above: Order Comment: Speci men Type: BLOOD SPECIMEN Ordering Facility: [facility] Address: [address] [place], [place] [address] Performed By: #### 5 8410-2 #### [facility] CLIA [id number] [address] [place] [address] [place] Nucleated RBC (Bld) [#/Vol] 10*3/uL Normal <0.[address] [facility] Comment on above: Order Comment: Speci men Type: BLOOD SPECIMEN Ordering Facility: [facility] Address: [address] Performed By: #### 5 8410-2 #### [facility] CLIA [id number] [address] [place] [address] [place] Platelet mean volume (Bld) [Entitic vol] 11.1 fL Normal 9.0-12.[address] [facility] Comment on above: Order Comment: Speci men Type: BLOOD SPECIMEN Ordering Facility: [facility] Address: [address] [address] Performed By: #### 5 8410-2 #### [facility] CLIA [id number] [address] [place] [address] [facility] [place] Platelets (Bld) [#/Vol] 341 10*3/uL Normal 150-[address] [facility] Comment on above: Order Comment: Speci men Type: BLOOD SPECIMEN Ordering Facility: [facility] Address: [address] [place] [address] Performed By: #### 5 8410-2 #### [facility] CLIA [id number] [address] [place] [address] [place] RBC (Bld) [#/Vol] 4.92 10*6/uL Normal 3.90-5.20 [facility] Comment on above: Order Comment: Speci men Type: BLOOD SPECIMEN Ordering Facility: [facility] Address: [address] [place] [address] Performed By: #### 5 8410-2 #### [facility] CLIA [id number] [address] [place] [address] [place] WBC (Bld) [#/Vol] 7.12 10*3/uL Normal 3.70-11.00 [facility] Comment on above: Order Comment: Speci men Type: BLOOD SPECIMEN Ordering Facility: [facility] Address: [address] [place] [address] Performed By: #### 5 8410-2 #### [facility] CLIA [id number] [address] [place] [address] OF [facility] CNOVon 02-23-2023 CNOV Office Visit (PEDSWS ) ELIZABETH NUNO ([id number]) 2 F Date Time Provider Department 02/23/23 [...] satisfactory Screening tools reviewed and discussed with patient/knimue-UOU-5. Please see Patient Entered Data. PHQ-9 = [...] 3, Crania (more content not included)... Normal [facility] Ferritin SerPl-mCncon 2022 Ferritin [Mass/Vol] 18.5 ng/mL Normal 14.7-205.1 [facility] Comment on above: Order Comment: Speci men Type: BLOOD SPECIMEN Ordering Facility: [facility] Address: [address] [address] Performed By: #### 5 0189-0, 2275-10 #### [facility] CLIA [id number] [address] [place] [address] [place] bilirubin panel [Ma ss/Vol]on 02-23-2023 Bilirubin [Mass/Vol] 2.5 mg/dL High 0.2-1.3 [facility] Comment on above: Order Comment: Specmirela mcnulty Type: BLOOD SPECIMEN Ordering Facility: [facility] Address: [address] [id number] Performed By: #### 5 0189-0, 2275-10 #### [facility] CLIA [id number] [facility] [place] [address] [place] Bilirubin.conjugated [Mass/Vol] 1.7 mg/dL High <0.[address] [facility] Comment on above: Order Comment: Speci men Type: BLOOD SPECIMEN Ordering Facility: [facility] Address: [address] [address] Performed By: #### 5 0189-0, 2276-4 #### [facility] CLIA [id number] [address] [place] [address] [place] Bilirubin.indirect [Mass/Vol] 0.8 mg/dL Normal <1.[address] [facility] Comment on above: Order Comment: Speci men Type: BLOOD SPECIMEN Ordering Facility: [facility] Address: [address] [address] Performed By: #### 5 0189-0, 2276-4 #### [facility] CLIA [id number] [facility] [place] [address] [place] UA DIP, URINE (POC)on 2022 BILIRUBIN UA (POCT) Small Abnormal Negative [facility] CLARITY UA (POCT) Clear [facility] COLOR UA (POCT) Dark yellow [facility] GLUCOSE UA (POCT) Negative Negative mg/dL [facility] Hemoglobin Ql (U) Negative Negative [facility] KETONE UA (POCT) Trace Negative mg/dL [facility] LEUKOCYTES UA (POCT) Moderate Abnormal Negative [facility] NITRITE UA (POCT) Negative Negative [facility] PH UA (POCT) 6.5 4.5 - 8.0 [facility] Protein Ql (U) Negative Negative mg/dL [facility] SPECIFIC GRAVITY UA (POCT) 1.020 1.005 - 1.030 [facility] UROBILINOGEN UA (POCT) 0.2 E.U./dL Chloe l E.U./dL [facility] CNOVon 05-30-2022 CNOV Office Visit (PEDSWS ) ELIZABETH NUNO ([id number]) 2 F Date Time Provider Department 05/30/22 9:00 AM IRMA JAY During your visit today, we recorded the following information about you: Temperature Pulse Respiration Blood pressure 97.3 degrees 64/minute 14/minute 118/70 Weight Last Period 82.8 kg 05/30/22 Irma Jay APRN.PAPERHANGER 05/30/2022 9:42 AM Signed PEDIATRIC SICK VISIT [...] Date Reviewed: 05/30/2022 Reviewed by: Irma Jay APRN.PAPERHANGER - Fully Assessed Reason for Visit: Follow [...] for Encounter Date Provider Department Center 05/30/2022 [id number] JAY [facility] Encounter Status:Closed by IRMA JAY on 05/30/[address] [facility] CBC W Auto Differential pane l (Bld)on 05-27-2022 Basophils (Bld) [#/Vol] 0.06 10*3/uL Normal <0.[address] [facility] Comment on above: Order Comment: Speci men Type: BLOOD SPECIMEN Ordering Facility: [facility] Address: [address] [place] [address] Performed By: #### 5 7021-8 #### [facility] CLIA [id number] [address] [place] [address] [place] Basophils/100 WBC (Bld) 0.9 % Normal [facility] Comment on above: Order Comment: Speci men Type: BLOOD SPECIMEN Ordering Facility: [facility] Address: [address] [place] [address] Performed By: #### 5 7021-8 #### [facility] CLIA [id number] [address] [place] [address] [place] Differential cell count method Nom (Bld) Auto Normal [facility] Comment on above: Order Comment: Speci men Type: BLOOD SPECIMEN Ordering Facility: [facility] Address: [address] [place] [address] Performed By: #### 5 7021-8 #### [facility] CLIA [id number] [address] [place] [address] [place] Eosinophils (Bld) [#/Vol] 0.06 10*3/uL Normal <0.[address] [facility] Comment on above: Order Comment: Speci men Type: BLOOD SPECIMEN Ordering Facility: [facility] Address: [address] Performed By: #### 5 7021-8 #### [facility] CLIA [id number] [address] [place] [address] [place] Eosinophils/100 WBC (Bld) 0.9 % Normal [facility] Comment on above: Order Comment: Speci men Type: BLOOD SPECIMEN Ordering Facility: [facility] Address: [address] Performed By: #### 5 7021-8 #### [facility] CLIA [id number] [address] [place] [address] [place] Erythrocyte distribution width (RBC) [Ratio] 12.6 % Normal 11.5-15.[address] [facility] Comment on above: Order Comment: Speci men Type: BLOOD SPECIMEN Ordering Facility: [facility] Address: [address] Performed By: #### 5 7021-8 #### [facility] CLIA [id number] [address] [place] [address] [place] Hematocrit (Bld) [Volume fraction] 43.3 % Normal 36.0-46.[address] [facility] Comment on above: Order Comment: Speci men Type: BLOOD SPECIMEN Ordering Facility: [facility] Address: [address] [place] [address] Performed By: #### 5 7021-8 #### [facility] CLIA [id number] [address] [place] [address] [place] Hemoglobin (Bld) [Mass/Vol] 14.2 g/dL Normal 11.5-15.[address] [facility] Comment on above: Order Comment: Speci men Type: BLOOD SPECIMEN Ordering Facility: [facility] Address: [address] Performed By: #### 5 7021-8 #### [facility] CLIA [id number] [address] [place] [address] [place] Immature granulocytes (Bld) [#/Vol] 10*3/uL Normal <0.[address] [facility] Comment on above: Order Comment: Speci men Type: BLOOD SPECIMEN Ordering Facility: [facility] Address: [address] [address] Performed By: #### 5 7021-8 #### [facility] CLIA [id number] [address] [place] [address] [place] Immature granulocytes/100 WBC (Bld) 0.3 % Normal [facility] Comment on above: Order Comment: Speci men Type: BLOOD SPECIMEN Ordering Facility: [facility] Address: [address] [place], [place] [address] Performed By: #### 5 7021-8 #### [facility] CLIA [id number] [address] [place] [address] [place] Lymphocytes (Bld) [#/Vol] 2.32 10*3/uL Normal 1.00-4.[address] [facility] Comment on above: Order Comment: Speci men Type: BLOOD SPECIMEN Ordering Facility: [facility] Address: [address] [place], [place] [address] Performed By: #### 5 7021-8 #### [facility] CLIA [id number] [address] [place] [address] [place] Lymphocytes/100 WBC (Bld) 35.7 % Normal [facility] Comment on above: Order Comment: Speci men Type: BLOOD SPECIMEN Ordering Facility: [facility] Address: [address] [place], [place] [address] Performed By: #### 5 7021-8 #### [facility] CLIA [id number] [address] [place] [address] [place] MCH (RBC) [Entitic mass] 29.5 pg Normal 26.0-34.[address] [facility] Comment on above: Order Comment: Speci men Type: BLOOD SPECIMEN Ordering Facility: [facility] Address: [address] Performed By: #### 5 7021-8 #### [facility] CLIA [id number] [address] [place] [address] [place] MCHC (RBC) [Mass/Vol] 32.8 g/dL Normal 30.5-36.0 [facility] Comment on above: Order Comment: Speci men Type: BLOOD SPECIMEN Ordering Facility: [facility] Address: [address] [place], [place] [address] Performed By: #### 5 7021-8 #### [facility] CLIA [id number] [address] [place] [address] [place] MCV (RBC) [Entitic vol] 90.0 fL Normal 80.0-100.[address] [facility] Comment on above: Order Comment: Speci men Type: BLOOD SPECIMEN Ordering Facility: [facility] Address: [address] Performed By: #### 5 7021-8 #### [facility] CLIA [id number] [address] [place] [address] [place] Monocytes (Bld) [#/Vol] 0.57 10*3/uL Normal <0.[address] [facility] Comment on above: Order Comment: Speci men Type: BLOOD SPECIMEN Ordering Facility: [facility] Address: [address] [place], [place] [address] Performed By: #### 5 7021-8 #### [facility] CLIA [id number] [address] [place] [address] [place] Monocytes/100 WBC (Bld) 8.8 % Normal [facility] Comment on above: Order Comment: Speci men Type: BLOOD SPECIMEN Ordering Facility: [facility] Address: [address] [place], [place] [address] Performed By: #### 5 7021-8 #### [facility] CLIA [id number] [address] [place] [address] [place] Neutrophils (Bld) [#/Vol] 3.46 10*3/uL Normal 1.45-7.[address] [facility] Comment on above: Order Comment: Speci men Type: BLOOD SPECIMEN Ordering Facility: [facility] Address: [address] [place] [address] Performed By: #### 5 7021-8 #### [facility] CLIA [id number] [address] [place] [address] [place] Neutrophils/100 WBC (Bld) 53.4 % Normal [facility] Comment on above: Order Comment: Speci men Type: BLOOD SPECIMEN Ordering Facility: [facility] Address: [address] [place], [place] [address] Performed By: #### 5 7021-8 #### [facility] CLIA [id number] [address] [place] [address] [place] Nucleated RBC (Bld) [#/Vol] 10*3/uL Normal <0.[address] [facility] Comment on above: Order Comment: Speci men Type: BLOOD SPECIMEN Ordering Facility: [facility] Address: [address] [place], [place] [address] Performed By: #### 5 7021-8 #### [facility] CLIA [id number] [facility] [place] [address] [place] Nucleated RBC/100 WBC (Bld) [Ratio] 0.0 /100 WBC Normal [facility] Comment on above: Order Comment: Speci men Type: BLOOD SPECIMEN Ordering Facility: [facility] Address: [address] [place], [place] [address] Performed By: #### 5 7021-8 #### [facility] CLIA [id number] [address] [place] [address] [place] Platelet mean volume (Bld) [Entitic vol] 10.9 fL Normal 9.0-12.[address] [facility] Comment on above: Order Comment: Speci men Type: BLOOD SPECIMEN Ordering Facility: [facility] Address: [address] [place], [place] [address] Performed By: #### 5 7021-8 #### [facility] CLIA [id number] [address] [place] [address] [place] Platelets (Bld) [#/Vol] 300 10*3/uL Normal 150-[address] [facility] Comment on above: Order Comment: Speci men Type: BLOOD SPECIMEN Ordering Facility: [facility] Address: [address] [place], [place] [address] Performed By: #### 5 7021-8 #### [facility] CLIA [id number] [address] [place] [address] [place] RBC (Bld) [#/Vol] 4.81 10*6/uL Normal 3.90-5.20 [facility] Comment on above: Order Comment: Speci men Type: BLOOD SPECIMEN Ordering Facility: [facility] Address: [address] [place], [place] [address] Performed By: #### 5 7021-8 #### [facility] CLIA [id number] [address] [place] [address] [place] WBC (Bld) [#/Vol] 6.49 10*3/uL Normal 3.70-11.00 [facility] Comment on above: Order Comment: Speci men Type: BLOOD SPECIMEN Ordering Facility: [facility] Address: [address] [place], [place] [address] Performed By: #### 5 7021-8 #### [facility] CLIA [id number] [address] [place] [address] [place] Ferritin SerPl-mCncon 2021 Ferritin [Mass/Vol] 24.7 ng/mL Normal 14.7-205.1 [facility] Comment on above: Order Comment: Speci men Type: BLOOD SPECIMEN Ordering Facility: [facility] Address: [address] [address] Performed By: #### 5 0189-0, 2275-4 #### [facility] CLIA [id number] [address] [place] [address] [place] Iron and Iron binding capaci ty panelon 05-27-2022 Iron [Mass/Vol] 130 ug/dL Normal 41-[address] [facility] Comment on above: Order Comment: Speci men Type: BLOOD SPECIMEN Ordering Facility: [facility] Address: [address] [place] [address] Performed By: #### 5 0189-0, 2275-4 #### [facility] CLIA [id number] [address] [place] [address] [place] Iron binding capacity [Mass/Vol] 348 ug/dL Normal 232-[address] [facility] Comment on above: Order Comment: Speci men Type: BLOOD SPECIMEN Ordering Facility: [facility] Address: [address] [place] [address] Performed By: #### 5 0189-0, 2275-4 #### [facility] CLIA [id number] [address] [place] [address] [place] Iron/TIBC [Molar ratio] 37.4 % Normal 15.0-57.[address] [facility] Comment on above: Order Comment: Speci men Type: BLOOD SPECIMEN Ordering Facility: [facility] Address: [address] [place] [address] Performed By: #### 5 0189-0, 2275-4 #### [facility] CLIA [id number] [address] [place] [address] [place] CBC W Auto Differential pane l (Bld)on 04-21-2022 Basophils (Bld) [#/Vol] 0.06 10*3/uL Normal <0.[address] [facility] Comment on above: Order Comment: Speci men Type: BLOOD SPECIMEN Ordering Facility: [facility] Address: [address] [place] [address] Performed By: #### 5 7021-8 #### [facility] CLIA [id number] [address] [place] [address] [place] Basophils/100 WBC (Bld) 1.3 % Normal [facility] Comment on above: Order Comment: Speci men Type: BLOOD SPECIMEN Ordering Facility: [facility] Address: [address] [place], [place] [address] Performed By: #### 5 7021-8 #### [facility] CLIA [id number] [address] [place] [address] [place] Differential cell count method Nom (Bld) Auto Normal [facility] Comment on above: Order Comment: Speci men Type: BLOOD SPECIMEN Ordering Facility: [facility] Address: [address] [place], [place] [address] Performed By: #### 5 7021-8 #### [facility] CLIA [id number] [address] [place] [address] [place] Eosinophils (Bld) [#/Vol] 0.07 10*3/uL Normal <0.[address] [facility] Comment on above: Order Comment: Speci men Type: BLOOD SPECIMEN Ordering Facility: [facility] Address: [address] [place] [address] Performed By: #### 5 7021-8 #### [facility] CLIA [id number] [address] [place] [address] [place] Eosinophils/100 WBC (Bld) 1.5 % Normal [facility] Comment on above: Order Comment: Speci men Type: BLOOD SPECIMEN Ordering Facility: [facility] Address: [address] [place] [address] Performed By: #### 5 7021-8 #### [facility] CLIA [id number] [address] [place] [address] [place] Erythrocyte distribution width (RBC) [Ratio] 12.6 % Normal 11.5-15.[address] [facility] Comment on above: Order Comment: Speci men Type: BLOOD SPECIMEN Ordering Facility: [facility] Address: [address] [place] [address] Performed By: #### 5 7021-8 #### [facility] CLIA [id number] [address] [place] [address] [place] Hematocrit (Bld) [Volume fraction] 40.7 % Normal 36.0-46.[address] [facility] Comment on above: Order Comment: Speci men Type: BLOOD SPECIMEN Ordering Facility: [facility] Address: [address] [place] [address] Performed By: #### 5 7021-8 #### [facility] CLIA [id number] [address] [place] [address] [place] Hemoglobin (Bld) [Mass/Vol] 12.9 g/dL Normal 11.5-15.[address] [facility] Comment on above: Order Comment: Speci men Type: BLOOD SPECIMEN Ordering Facility: [facility] Address: [address] [place], [place] [address] Performed By: #### 5 7021-8 #### [facility] CLIA [id number] [address] [place] [address] [place] Immature granulocytes (Bld) [#/Vol] 10*3/uL Normal <0.[address] [facility] Comment on above: Order Comment: Speci men Type: BLOOD SPECIMEN Ordering Facility: [facility] Address: [address] [place], [place] [address] Performed By: #### 5 7021-8 #### [facility] CLIA [id number] [address] [place] [address] [place] Immature granulocytes/100 WBC (Bld) 0.2 % Normal [facility] Comment on above: Order Comment: Speci men Type: BLOOD SPECIMEN Ordering Facility: [facility] Address: [address] [place], [place] [address] Performed By: #### 5 7021-8 #### [facility] CLIA [id number] [address] [place] [address] [place] Lymphocytes (Bld) [#/Vol] 2.26 10*3/uL Normal 1.00-4.[address] [facility] Comment on above: Order Comment: Speci men Type: BLOOD SPECIMEN Ordering Facility: [facility] Address: [address] [place], [place] [address] Performed By: #### 5 7021-8 #### [facility] CLIA [id number] [address] [place] [address] [place] Lymphocytes/100 WBC (Bld) 47.9 % Normal [facility] Comment on above: Order Comment: Speci men Type: BLOOD SPECIMEN Ordering Facility: [facility] Address: [address] [place], [place] [address] Performed By: #### 5 7021-8 #### [facility] CLIA [id number] [address] [place] [address] [place] MCH (RBC) [Entitic mass] 28.7 pg Normal 26.0-34.[address] [facility] Comment on above: Order Comment: Speci men Type: BLOOD SPECIMEN Ordering Facility: [facility] Address: [address] [place] [address] Performed By: #### 5 7021-8 #### [facility] CLIA [id number] [address] [place] [address] [place] MCHC (RBC) [Mass/Vol] 31.7 g/dL Normal 30.5-36.0 [facility] Comment on above: Order Comment: Speci men Type: BLOOD SPECIMEN Ordering Facility: [facility] Address: [address] [place] [address] Performed By: #### 5 7021-8 #### [facility] CLIA [id number] [address] [place] [address] [place] MCV (RBC) [Entitic vol] 90.6 fL Normal 80.0-100.[address] [facility] Comment on above: Order Comment: Speci men Type: BLOOD SPECIMEN Ordering Facility: [facility] Address: [address] [place] [address] Performed By: #### 5 7021-8 #### [facility] CLIA [id number] [address] [place] [address] [place] Monocytes (Bld) [#/Vol] 0.42 10*3/uL Normal <0.[address] [facility] Comment on above: Order Comment: Speci men Type: BLOOD SPECIMEN Ordering Facility: [facility] Address: [address] [place] [address] Performed By: #### 5 7021-8 #### [facility] CLIA [id number] [address] [place] [address] [place] Monocytes/100 WBC (Bld) 8.9 % Normal [facility] Comment on above: Order Comment: Speci men Type: BLOOD SPECIMEN Ordering Facility: [facility] Address: [address] [place] [address] Performed By: #### 5 7021-8 #### [facility] CLIA [id number] [address] [place] [address] [place] Neutrophils (Bld) [#/Vol] 1.90 10*3/uL Normal 1.45-7.[address] [facility] Comment on above: Order Comment: Speci men Type: BLOOD SPECIMEN Ordering Facility: [facility] Address: [address] [place] [address] Performed By: #### 5 7021-8 #### [facility] CLIA [id number] [address] [place] [address] [place] Neutrophils/100 WBC (Bld) 40.2 % Normal [facility] Comment on above: Order Comment: Speci men Type: BLOOD SPECIMEN Ordering Facility: [facility] Address: [address] [place] [address] Performed By: #### 5 7021-8 #### [facility] CLIA [id number] [address] [place] [address] [place] Nucleated RBC (Bld) [#/Vol] 10*3/uL Normal <0.[address] [facility] Comment on above: Order Comment: Speci men Type: BLOOD SPECIMEN Ordering Facility: [facility] Address: [address] [place] [address] Performed By: #### 5 7021-8 #### [facility] CLIA [id number] [address] [place] [address] [place] Nucleated RBC/100 WBC (Bld) [Ratio] 0.0 /100 WBC Normal [facility] Comment on above: Order Comment: Speci men Type: BLOOD SPECIMEN Ordering Facility: [facility] Address: [address] [place] [address] Performed By: #### 5 7021-8 #### [facility] CLIA [id number] [address] [place] [address] [place] Platelet mean volume (Bld) [Entitic vol] 10.8 fL Normal 9.0-12.[address] [facility] Comment on above: Order Comment: Speci men Type: BLOOD SPECIMEN Ordering Facility: [facility] Address: [address] [place] [address] Performed By: #### 5 7021-8 #### [facility] CLIA [id number] [address] [place] [address] [place] Platelets (Bld) [#/Vol] 351 10*3/uL Normal 150-[address] [facility] Comment on above: Order Comment: Speci men Type: BLOOD SPECIMEN Ordering Facility: [facility] Address: [address] [place] [address] Performed By: #### 5 7021-8 #### [facility] IA [id number] [address] [place] [address] [place] RBC (Bld) [#/Vol] 4.49 10*6/uL Normal 3.90-5.20 [facility] Comment on above: Order Comment: Speci men Type: BLOOD SPECIMEN Ordering Facility: [facility] Address: [address] [place] [address] Performed By: #### 5 7021-8 #### [facility] IA [id number] [address] [place] [address] [place] WBC (Bld) [#/Vol] 4.72 10*3/uL Normal 3.70-11.00 [facility] Comment on above: Order Comment: Speci men Type: BLOOD SPECIMEN Ordering Facility: [facility] Address: [address] [place] [address] Performed By: #### 5 7021-8 #### [facility] [place] [id number] [address] [place] [address] [place] CNOVon 04-21-2022 CNOV Office Visit (PEDSWS ) ELIZABETH NUNO ([id number]) 2 F Date Time Provider Department 04/21/22 8:45 AM IRMA JAY During your visit today, we recorded the following information about you: Temperature Pulse Respiration Blood pressure 97.6 degrees 68/minute 12/minute 128/82 Weight 82.4 kg Irma Jay APRN.PAPERHANGER 04/21/2022 12:53 PM Signed PEDIATRIC SICK VISIT [...] [D50.9] Order(s):CBC + DIFF [SQCBCDIF] Order #: [id number] FUTURE CBC + DIFF [SQCBCDIF] Order #: [id number] FUTURE FERRITIN BLD [SQFERR] Order #: [id number] FUTURE IRON + TIBC [SQIRON] Order #: [id number] FUTURE ferrous sulfate 325 mg (65 mg [...] - flutic (more content not included)... Normal [facility] Comprehensive metabolic 2000 panelon 04-21-2022 Albumin [Mass/Vol] 4.6 g/dL Normal 3.9-4.9 [facility] Comment on above: Order Comment: Speci men Type: BLOOD SPECIMEN Ordering Facility: [facility] Address: [address] [place] [address] Performed By: #### 2 4323-8 #### [facility] CLIA [id number] [address] [place] [address] [place] ALP [Catalytic activity/Vol] 63 U/L Normal 34-[address] [facility] Comment on above: Order Comment: Speci men Type: BLOOD SPECIMEN Ordering Facility: [facility] Address: [address] [place] [address] Performed By: #### 2 4323-8 #### [facility] CLIA [id number] [address] [place] [address] [place] ALT [Catalytic activity/Vol] 12 U/L Normal 7-[address] [facility] Comment on above: Order Comment: Speci men Type: BLOOD SPECIMEN Ordering Facility: [facility] Address: [address] Performed By: #### 2 4323-8 #### [facility] CLIA [id number] [address] [place] [address] [place] Anion gap [Moles/Vol] 11 mmol/L Normal 9-18 [facility] Comment on above: Order Comment: Speci men Type: BLOOD SPECIMEN Ordering Facility: [facility] Address: [address] [place], [place] [address] Performed By: #### 2 4323-8 #### [facility] CLIA [id number] [address] [place] [address] [place] AST [Catalytic activity/Vol] 19 U/L Normal 13-[address] [facility] Comment on above: Order Comment: Speci men Type: BLOOD SPECIMEN Ordering Facility: [facility] Address: [address] [place], [place] [address] Performed By: #### 2 4323-8 #### [facility] CLIA [id number] [address] [place] [address] [place] Bilirubin [Mass/Vol] 2.6 mg/dL High 0.2-1.3 [facility] Comment on above: Order Comment: Speci men Type: BLOOD SPECIMEN Ordering Facility: [facility] Address: [address] [place], [place] [address] Performed By: #### 2 4323-8 #### [facility] CLIA [id number] [address] [place] [address] [place] Calcium [Mass/Vol] 9.8 mg/dL Normal 8.5-10.2 [facility] Comment on above: Order Comment: Speci men Type: BLOOD SPECIMEN Ordering Facility: [facility] Address: [address] [place] [address] Performed By: #### 2 4323-8 #### [facility] CLIA [id number] [address] [place] [address] [place] Chloride [Moles/Vol] 105 mmol/L Normal 97-105 [facility] Comment on above: Order Comment: Speci men Type: BLOOD SPECIMEN Ordering Facility: [facility] Address: [address] [place] [address] Performed By: #### 2 4323-8 #### [facility] CLIA [id number] [address] [place] [address] [place] CO2 [Moles/Vol] 24 mmol/L Normal 22-[address] [facility] Comment on above: Order Comment: Speci men Type: BLOOD SPECIMEN Ordering Facility: [facility] Address: [address] [place] [address] Performed By: #### 2 4323-8 #### [facility] CLIA [id number] [address] [place] [address] [place] Creatinine [Mass/Vol] 0.84 mg/dL Normal 0.58-0.96 [facility] Comment on above: Order Comment: Speci men Type: BLOOD SPECIMEN Ordering Facility: [facility] Address: [address] [place] [address] Performed By: #### 2 4323-8 #### [facility] CLIA [id number] [address] [place] [address] OF [facility] ESTIMATED GLOMERULAR FILTRATION RATE 102 mL/min/1.73m??? Normal >=[address] [facility] Comment on above: Order Comment: Speci men Type: BLOOD SPECIMEN Ordering Facility: [facility] Address: [address] [place] [address] Result Comment: Aster mated Glomerular Filtration Rate [...] GFR. Performed By: #### 2 4323-8 #### [facility] CLIA [id number] [address] [place] [address] [place] Glucose [Mass/Vol] 76 mg/dL Normal 74-99 [facility] Comment on above: Order Comment: Speci men Type: BLOOD SPECIMEN Ordering Facility: [facility] Address: [address] [place] [address] Result Comment: The [place] [employer] (ADA) provides guidance for cutoff [...] Standards of Medical Care in Diabetes 2016, [place] [employer]. Diabetes Care. 2016.39(Suppl 1). Performed By: #### 2 4323-8 #### [facility] CLIA [id number] [address] [place] [address] [place] Potassium [Moles/Vol] 4.6 mmol/L Normal 3.7-5.1 [facility] Comment on above: Order Comment: Speci men Type: BLOOD SPECIMEN Ordering Facility: [facility] Address: [address] [place], [place] [address] Performed By: #### 2 4323-8 #### [facility] CLIA [id number] [address] [place] [address] [place] Protein [Mass/Vol] 6.8 g/dL Normal 6.3-8.0 [facility] Comment on above: Order Comment: Speci men Type: BLOOD SPECIMEN Ordering Facility: [facility] Address: [address] [place] [address] Performed By: #### 2 4323-8 #### [facility] CLIA [id number] [address] [place] [address] [place] Sodium [Moles/Vol] 140 mmol/L Normal 136-144 [facility] Comment on above: Order Comment: Speci men Type: BLOOD SPECIMEN Ordering Facility: [facility] Address: [address] [place], [place] [address] Performed By: #### 2 4323-8 #### [facility] CLIA [id number] [address] [place] [address] [place] Urea nitrogen [Mass/Vol] 9 mg/dL Normal 7-[address] [facility] Comment on above: Order Comment: Speci men Type: BLOOD SPECIMEN Ordering Facility: [facility] Address: [address] [place] [address] Performed By: #### 2 4323-8 #### [facility] CLIA [id number] [address] [place], [place] [id number] [place] MRI PANC/COREY WO/W [...] NO ACUTE PATHOLOGY. NO MASS OR LYMPHADENOPATHY. [employer] Architect: PATRICK Transcribe Date/Time: Mar 14 2022 9:11A Dictated by : MERCEDES HUITRON MD This examination was interpreted and the report reviewed and electronically signed by: MERCEDES HUITRON MD on Mar 14 2022 9:20AM EST [id number] Normal [facility] US ABD RT UPPER QUADRANTon 0 02-14-2022 [facility] US KIDNEY/BLADDERon 02-07-20 [facility] BILIRUBIN DIRECT Don 02-03 Bilirubin.conjugated [Mass/Vol] 1.6 mg/dL High <0.2 mg/dL [facility] BILIRUBIN TOTAL BLDon 2021 Bilirubin [Mass/Vol] 2.3 mg/dL High 0.2 - 1 .3 mg/dL [facility] CK CREATINE KINASEon 022 CK [Catalytic activity/Vol] 72 U/L 42 - 196 U/L [facility] GGT Don 02-03-2022 Gamma glutamyl transferase [Catalytic activity/Vol] 10 U/L 6 - 46 U/L [facility] Basophil percentageon 2021 Basophil percentage 0-5 SEEN /hpf 0-5 [facility] Work Phone: Bilirubin Test strip Ql (U)o n 01-29-2022 Bilirubin Ql (U) 3 mg/dL Negative [facility] Work Phone: Comment on above: COLOR OF URINE MAY A FFECT DIPSTICK RESULTS. Ketones Test strip Ql (U)on 01-29-2022 Ketones Ql (U) Negative Negative [facility] Work Phone: Laboratory - Chemistry and C hemistry - challengeon 01-29-2022 Bilirubin Ql (U) Large (3+) [facility] Work Phone: [phone] Glucose Ql (U) Negative [facility] Work Phone: [phone] Ketones Ql (U) Negative [facility] Work Phone: [phone] pH (U) 6.5 [pH] [facility] Work Phone: [phone] Specific gravity (U) [Rel density] 1.015 [facility] Work Phone: [phone] Urobilinogen (U) [Mass/Vol] Negative [facility] Work Phone: Laboratory - Hematology and Cell countson 01-29-2022 Hemoglobin Ql (U) Trace [facility] Work Phone: Laboratory - Specimen inform ationon 01-29-2022 Clarity (U) Clear [facility] Work Phone: Color (U) STRAW [facility] Work Phone: Laboratory - Urinalysison Nitrite Ql (U) Negative [facility] Work Phone: Protein Ql (U) Trace [facility] Work Phone: Mucus LM Ql (Urine sed)on Mucus Ql (Urine sed) 0 SEEN /hpf [facility] Work Phone: Nitrite Test strip Ql (U)on 01-29-2022 Nitrite Ql (U) Negative Negative [facility] Work Phone: No Panel Informationon 01-29 Urine Leukocytes Positive [facility] Work Phone: Urine Non-Hemolyzed Blood Non-Hemolyzed [facility] Work Phone: Protein Test strip Ql (U)on 01-29-2022 Protein Ql (U) Negative Negative [facility] Work Phone: Squamous epithelial cells de tection in urine sediment by light microscopyon 01-29-2022 Epithelial cells.squamous LM Ql (Urine sed) 5-10 SEEN /hpf 5-10 [facility] Work Phone: Urine blood detectionon 01-04 RBC Ql (U) 10 /ul Negative [facility] Work Phone: RBC Ql (U) 0-5 SEEN /hpf 0-5 [facility] Work Phone: Urine clarityon 01-29-2022 Clarity (U) Clear Clear [facility] Work Phone: Urine color determinationon 01-29-2022 Color (U) Rosa Yellow [facility] Work Phone: Urine glucose detectionon Glucose Ql (U) Normal mg/dl Normal [facility] Work Phone: Urine leukocyte esterase det ection by dipstickon 01-29-2022 Leukocyte esterase Test strip Ql (U) 100 /ul Negative [facility] Work Phone: Urine pHon 01-29-2022 pH (U) 6.5 [pH] 5.0 - 8.0 [facility] Work Phone: Urine sediment bacteria coun t by microscopy (number/high power field)on 01-29-2022 Bacteria LM.HPF (Urine sed) [#/Area] 2 /[HPF] None Seen [facility] Work Phone: Urine specific gravity measu rementon 01-29-2022 Specific gravity (U) [Rel density] 1.010 1.002-1.030 [facility] Work Phone: Urobilinogen Auto test strip Ql (U)on 01-29-2022 Urobilinogen Ql (U) 4 mg/dl Normal [facility] Work Phone: Office Visit: [employer] phys[employer] debbie 01-26-2017 Documentation of current medications (procedure) Done Invalid Interpretation Code [facility] Work Phone: Documentation of current medications (procedure) T Invalid Interpretation Code [facility] Work Phone: Fall risk assessment No Invalid Interpretation Code [facility] Work Phone: Tobacco use [facility] Never smoker Invalid Interpretation Code [facility] Work Phone: Office Visiton 02-23-2010 Rapid strep test Negative Invalid Interpretation Code [facility] Work Phone: Culture, urine Bacteria identified Cx Nom (U) Mixed Gram Pos & Gram Neg Org [facility] Work Phone: Vital Signs Date Time Vital Sign Value Performing Clinician Facility 11-17-2024 12:06-0400 Body height 180.[address] Clotilde Fox MD Work Phone: [facility] 11-17-2024 12:05-0400 Diastolic blood pressure 89 mm[Hg] Dr. Clotilde Fox MD Work Phone: [phone] [place] [address] 11-17-2024 12:05-0400 Systolic blood pressure 134 mm[Hg] Dr. Clotilde Fox MD Work Phone: [phone] [place] [address] 10-07-2024 16:14-0400 Body mass index (BMI) [Ratio] 24.4 kg/m2 Dr. Clotilde Fox MD Work Phone: [phone] [place] [address] 10-07-2024 16:14-0400 Body weight 79.[address] Clotilde Fox MD Work Phone: [phone] [place] [address] 10-07-2024 16:14-0400 Diastolic blood pressure 93 mm[Hg] Dr. Clotilde Fox MD Work Phone: [phone] [place] [address] 10-07-2024 16:14-0400 Systolic blood pressure 146 mm[Hg] Dr. Clotilde Fox MD Work Phone: [phone] [place] [address] 08-05-2024 15:58-0500 Body mass index (BMI) [Ratio] 24.4 kg/m2 Dr. Clotilde Fox MD Work Phone: [phone] [place] [address] 08-05-2024 15:58-0500 Body weight 79.[address] Clotilde Fox MD Work Phone: [phone] [place] [address] 08-05-2024 15:58-0500 Diastolic blood pressure 86 mm[Hg] Dr. Clotilde Fox MD Work Phone: [phone] [place] [address] 08-05-2024 15:58-0500 Systolic blood pressure 132 mm[Hg] Dr. Clotilde Fox MD Work Phone: [phone] [place] [address] 02-23-2023 14:34-0400 Body height 180.3 cm Clotilde Fox MD Work Phone: [facility] 02-23-2023 14:34-0400 Body temperature 98.6 [degF] Clotilde Fox MD Work Phone: [facility] 02-23-2023 14:34-0400 Body weight 79.47 kg Clotilde Fox MD Work Phone: [phone] [place] [address] 02-23-2023 14:34-0400 Diastolic blood pressure 62 mm[Hg] Clotilde Fox MD Work Phone: [facility] 02-23-2023 14:34-0400 Heart rate 60 /min Clotilde Fox MD Work Phone: [facility] 02-23-2023 14:34-0400 Respiratory rate 14 /min Clotilde Fox MD Work Phone: [facility] 02-23-2023 14:34-0400 Systolic blood pressure 114 mm[Hg] Clotilde Fox MD Work Phone: [facility] 05-30-2022 08:59-0500 Body temperature 97.3 [degF] Irma Jay LEAD MANUFACTURING TECHNICIAN.PAPERHANGER Work Phone: [facility] 05-30-2022 08:59-0500 Body weight 82.83 kg Irma Jay LEAD MANUFACTURING TECHNICIAN.PAPERHANGER Work Phone: [facility] 05-30-2022 08:59-0500 Diastolic blood pressure 70 mm[Hg] Irma Jay LEAD MANUFACTURING TECHNICIAN.PAPERHANGER Work Phone: [facility] 05-30-2022 08:59-0500 Heart rate 64 /min Irma Jay LEAD MANUFACTURING TECHNICIAN.PAPERHANGER Work Phone: [facility] 05-30-2022 08:59-0500 Respiratory rate 14 /min Irma Jay LEAD MANUFACTURING TECHNICIAN.PAPERHANGER Work Phone: [facility] 05-30-2022 08:59-0500 Systolic blood pressure 118 mm[Hg] Irma Jay LEAD MANUFACTURING TECHNICIAN.PAPERHANGER Work Phone: [facility] 04-21-2022 08:45-0400 Body temperature 97.59 [degF] Irma Jay LEAD MANUFACTURING TECHNICIAN.PAPERHANGER Work Phone: [facility] 04-21-2022 08:45-0400 Body weight 82.44 kg Irma Jay LEAD MANUFACTURING TECHNICIAN.PAPERHANGER Work Phone: [facility] 04-21-2022 08:45-0400 Diastolic blood pressure 82 mm[Hg] Irma Jay LEAD MANUFACTURING TECHNICIAN.PAPERHANGER Work Phone: [facility] 04-21-2022 08:45-0400 Heart rate 68 /min Irma Jay LEAD MANUFACTURING TECHNICIAN.PAPERHANGER Work Phone: [facility] 04-21-2022 08:45-0400 Respiratory rate 12 /min Irma Jay LEAD MANUFACTURING TECHNICIAN.PAPERHANGER Work Phone: [facility] 04-21-2022 08:45-0400 Systolic blood pressure 128 mm[Hg] Irma Jay LEAD MANUFACTURING TECHNICIAN.PAPERHANGER Work Phone: [facility] 02-20-2022 10:00-0400 Body height 180.3 cm Ailyn Pichardo MD Work Phone: [facility] 02-20-2022 10:00-0400 Body weight 74.84 kg Ailyn Pichardo MD Work Phone: [facility] 02-20-2022 10:00-0400 Diastolic blood pressure 78 mm[Hg] Ailyn Pichardo MD Work Phone: [facility] 02-20-2022 10:00-0400 Heart rate 80 /min Ailyn Pichardo MD Work Phone: [facility] 02-20-2022 10:00-0400 Systolic blood pressure 112 mm[Hg] Ailyn Pichardo MD Work Phone: [facility] 01-26-2017 16:32-0400 BMI (Body Mass Index) 18.05 kg/m2 Ashleigh Caraballo LPN [facility] Work Phone: 01-26-2017 16:32-0400 Body Temperature 97.7 [degF] Ashleigh Caraballo LPN [facility] Work Phone: 01-26-2017 16:32-0400 BP Diastolic 68 mm[Hg] Aslheigh Caraballo LPN [facility] Work Phone: 01-26-2017 16:32-0400 BP Systolic 102 mm[Hg] Ashleigh Caraballo LPN [facility] Work Phone: 01-26-2017 16:32-0400 Height 180.34 cm Ashleigh Caraballo LPN [facility] Work Phone: 01-26-2017 16:32-0400 Pulse (Heart Rate) 86 /min Ashleigh Caraballo LPN [facility] Work Phone: 01-26-2017 16:32-0400 Respiratory Rate 12 /min Ashleigh Caraballo LPN [facility] Work Phone: 01-26-2017 16:32-0400 Weight 58.7 kg Ashleigh Caraballo LPN [facility] Work Phone: 02-23-2010 18:21-0400 Body Temperature 98.78 [degF] Ashleigh Caraballo LPN [facility] Work Phone: Encounters Encounter Date Encounter Type Care Provider Facility Start: 01-03-2025 End: 01-03-[address] Nuris Ta DO -[facility] Work Phone: Start: 01-03-2025 End: 01-03-2025 ambulatory Nuris Ta [facility] Start: 11-17-2024 End: 11-17-[address] Alisson Martell MD -[facility] Work Phone: Start: 11-17-2024 End: 11-17-[address] Clotilde Fox MD Work Phone: [facility] Work Phone: Start: 10-07-2024 End: 10-07-[address] Alisson Martell MD -[facility] Work Phone: Start: 10-07-2024 End: 10-07-2024 ambulatory Alisson Martell Facility:[facility] Start: 08-10-2024 Encounter for general adult medical examination without abnormal findings [facility] Start: 08-05-2024 End: 08-05-[address] Alisson Martell MD -[facility] Work Phone: Start: 08-05-2024 End: 08-05-[address] Alisson Martell MD [facility] Start: 08-05-2024 End: 08-05-2024 ambulatory Clotilde Fox Facility:[facility] Start: 08-05-2024 End: 08-05-2024 ambulatory Alisson Martell Facility:[facility] Start: 07-19-2024 End: 07-19-2024 [facility] Start: 07-15-[address] Clotilde Fox MD Work Phone: [facility] Start: 07-15-2024 End: 07-15-2024 ambulatory [facility] Facility:[facility] Start: 04-07-2024 ambulatory Health Risk Assessment Facility:[facility] Start: 02-23-2023 End: 02-24-2023 ambulatory CLOTILDE FOX Facility:[facility] Start: 02-23-2023 End: 02-23-2023 Patient encounter procedure Clotilde Fox MD Work Phone: [facility] Comment on above: Encounter for genera l adult medical examination without abnormal findings (Primary Dx); History of iron deficiency; Serum total bilirubin elevated Start: 02-23-2023 End: 02-23-2023 Patient encounter status Clotilde Fox MD Work Phone: [facility] Work Phone: Start: 05-30-2022 End: 05-30-2022 ambulatory CLOTILDE FOX Facility:[facility] Start: 05-30-2022 End: 05-30-2022 Patient encounter procedure Irma Jay APRN.CNP Work Phone: [facility] Comment on above: History of iron defi ciency (Primary Dx) Start: 05-27-2022 End: 05-27-2022 ambulatory CLOTILDE FOX Facility:[facility] Start: 04-21-2022 End: 04-21-2022 ambulatory CLOTILDE FOX Facility:[facility] Start: 04-21-2022 End: 04-21-2022 Patient encounter procedure Irma Jay APRN.PAPERHANGER Work Phone: [facility] Comment on above: Iron deficiency anem ia, unspecified iron deficiency anemia type (Primary Dx) Start: 03-13-2022 End: 03-13-2022 ambulatory AILYN PICHARDO Facility:[facility] Start: 03-13-2022 End: 03-13-2022 Subsequent hospital visit by physician [facility] (I-Stat/1.5t) Work Phone: Radiology Comment on above: Elevated bilirubin [ R17] Start: 03-06-2022 Telephone encounter Ailyn posada MD Work Phone: [facility] Comment on above: Results Start: 02-20-2022 End: 02-20-2022 Patient encounter procedure Ailyn Pichardo MD Work Phone: [facility] Comment on above: Abnormal results of liver function studies (Primary Dx); Elevated bilirubin; Right upper quadrant abdominal pain Start: 02-14-2022 End: 02-14-2022 Subsequent hospital visit by physician [facility] Work Phone: Radiology Comment on above: Serum total bilirubi n elevated [R17] Start: 02-07-2022 Patient encounter procedure Maria T Wang MD Work Phone: Peds Gastroenterology Start: 02-07-2022 Telephone encounter Irma rodas APRN.PAPERHANGER Work Phone: [facility] [place] Comment on above: Results Start: 02-06-2022 End: 02-06-2022 Subsequent hospital visit by physician [facility] Work Phone: Radiology Comment on above: Serum total bilirubi n elevated [R17] Start: 01-31-2022 Telephone encounter Melisa boss MD Work Phone: Pediatrics Comment on above: [facility] Results Start: 01-29-2022 End: 01-29-[address] Clotilde Fox Work Phone: [facility], Specimen Start: 01-29-2022 End: 01-29-[address] Clotilde Fox Work Phone: [facility] Procedures Date Procedure Procedure Detail [...] therefore, no HPV testing was performed.Performed at: [address] [id number] Director: Franco Castro PhD, Phone: [phone] at: [facility] [id number] Director: Carla Goldstein MD, Phone: [phone] Start: 02-23-2023 Urnls dip stick/tabl et rgnt auto w/o microscopy Clotilde Fox MD Work Phone: Start: 02-14-2022 Us abdominal real ti me w/image limited Irma Jay APRN.PAPERHANGER Work Phone: Start: 02-06-2022 Us retroperitoneal r eal time w/image complete Irma Jay LEAD MANUFACTURING TECHNICIAN.PAPERHANGER Work Phone: Start: 01-29-2022 Adult depression scr eening assessment Melisa Caballero MD Work Phone: Start: 02-23-2010 End: 02-23-2010 Rapid strep test Christine Roman MS,PA-C Urine culture Dr. Clotilde diamond Work Phone: Plan of Treatment Date Care Activity Detail Author Start: 02-25-2024 Urine microalbumin profile DTA P,TDAP,TD (6 - Td or Tdap) [facility] Start: 03-06-2023 Influenza vaccination INFLUENZA (#1) [facility] Start: 01-29-2023 Adult depression scr eening assessment DEPRESSION SCREENING [facility] Start: 2022 PAP TESTING PAP TESTING [facility] Start: 07-06-2022 DEPRESSION ASSESSMENT DEPRESSION ASS ESSMENT [facility] Start: 05-22-2022 End: 07-22-2022 CBC W Auto Differential panel - Blood CBC + DIFF Lab Routine Iron deficiency anemia, unspecified iron deficiency anemia type Expected: 05/22/2022, Expires: 07/22/2022 [facility] Work Phone: Comment on above: Expected: 05/22/2022 , Expires: 07/22/2022 Start: 05-22-2022 End: 07-22-2022 Ferritin [Mass/volume] in Serum or Plasma FERRITIN BLD Lab Routine Iron deficiency anemia, unspecified iron deficiency anemia type Expected: 05/22/2022, Expires: 07/22/2022 [facility] Work Phone: Comment on above: Expected: 05/22/2022 , Expires: 07/22/2022 Start: 04-21-2022 End: 06-21-2022 CBC W Auto Differential panel - Blood [facility] Work Phone: Comment on above: Expected: 04/21/2022 , Expires: 06/21/2022 Start: 04-21-2022 End: 06-21-2022 Iron and Iron binding capacity panel - Serum or Plasma IRON + TIBC Lab Routine Iron deficiency anemia, unspecified iron deficiency anemia type Expected: 04/21/2022, Expires: 06/21/2022 [facility] Work Phone: Comment on above: Expected: 04/21/2022 , Expires: 06/21/2022 Start: 03-06-2022 Influenza vaccination INFLUENZA (#1) [facility] Start: 02-20-2022 End: 04-22-2022 JEB BY IFA WITH REFLEX JEB BY IFA WITH REFLEX Lab Routine Elevated bilirubin Abnormal results of liver function studies Expected: 02/20/2022, Expires: 04/22/2022 [facility] Work Phone: Comment on above: Expected: 02/20/2022 , Expires: 04/22/2022 Start: 02-20-2022 End: 04-22-2022 ANTI NEUTRO CYTO AB ANTI NEUTRO CYTO AB Lab Routine Elevated bilirubin Abnormal results of liver function studies Right upper quadrant abdominal pain Expected: 02/20/2022, Expires: 04/22/2022 [facility] Work Phone: Comment on above: Expected: 02/20/2022 , Expires: 04/22/2022 Start: 02-20-2022 End: 04-22-2022 Ceruloplasmin [Mass/volume] in Serum or Plasma CERULOPLASMIN BLD Lab Routine Elevated bilirubin Abnormal results of liver function studies Expected: 02/20/2022, Expires: 04/22/2022 [facility] Work Phone: Comment on above: Expected: 02/20/2022 , Expires: 04/22/2022 Start: 02-20-2022 End: 04-22-2022 Direct antiglobulin test.poly specific reagent [Presence] on Red Blood Cells VARGAS DIRECT Blood Bank Routine Elevated bilirubin Abnormal results of liver function studies Expected: 02/20/2022, Expires: 04/22/2022 [facility] Work Phone: Comment on above: Expected: 02/20/2022 , Expires: 04/22/2022 Start: 02-20-2022 End: 04-22-2022 Ferritin [Mass/volume] in Serum or Plasma FERRITIN BLD Lab Routine Elevated bilirubin Abnormal results of liver function studies Expected: 02/20/2022, Expires: 04/22/2022 [facility] Work Phone: Comment on above: Expected: 02/20/2022 , Expires: 04/22/2022 Start: 02-20-2022 End: 04-22-2022 HEP ACUTE PANEL/RNA HEP ACUTE PANEL/RNA Lab Routine Elevated bilirubin Abnormal results of liver function studies Expected: 02/20/2022, Expires: 04/22/2022 [facility] Work Phone: Comment on above: Expected: 02/20/2022 , Expires: 04/22/2022 Start: 02-20-2022 End: 04-22-2022 IgG [Mass/volume] in Serum or Plasma IGG Lab Routine Elevated bilirubin Abnormal results of liver function studies Right upper quadrant abdominal pain Expected: 02/20/2022, Expires: 04/22/2022 [facility] Work Phone: Comment on above: Expected: 02/20/2022 , Expires: 04/22/2022 Start: 02-20-2022 End: 04-22-2022 Iron and Iron binding capacity panel - Serum or Plasma IRON + TIBC Lab Routine Elevated bilirubin Abnormal results of liver function studies Expected: 02/20/2022, Expires: 04/22/2022 [facility] Work Phone: Comment on above: Expected: 02/20/2022 , Expires: 04/22/2022 Start: 02-20-2022 End: 04-22-2022 Lactate dehydrogenase [Enzymatic activity/volume] in Serum or Plasma LD LACTATE DEHYDRO Lab Routine Elevated bilirubin Abnormal results of liver function studies Expected: 02/20/2022, Expires: 04/22/2022 [facility] Work Phone: Comment on above: Expected: 02/20/2022 , Expires: 04/22/2022 Start: 02-20-2022 End: 04-22-2022 Mitochondria Ab [Presence] in Serum by Immunofluorescence MITOCHONDRIAL AB SCR Lab Routine Elevated bilirubin Abnormal results of liver function studies Expected: 02/20/2022, Expires: 04/22/2022 [facility] Work Phone: Comment on above: Expected: 02/20/2022 , Expires: 04/22/2022 Start: 02-20-2022 End: 04-22-2022 bilirubin panel [Mass/volume] - Serum or Plasma BILIRUBIN FRACTION Lab Routine Elevated bilirubin Abnormal results of liver function studies Right upper quadrant abdominal pain Expected: 02/20/2022, Expires: 04/22/2022 [facility] Work Phone: Comment on above: Expected: 02/20/2022 , Expires: 04/22/2022 Start: 02-20-2022 End: 04-22-2022 RETIC COUNT RETIC COUNT Lab Routine Elevated bilirubin Abnormal results of liver function studies Expected: 02/20/2022, Expires: 04/22/2022 [facility] Work Phone: Comment on above: Expected: 02/20/2022 , Expires: 04/22/2022 Start: 02-20-2022 End: 04-22-2022 Smooth muscle Ab [Presence] in Serum SMOOTH MUSCLE AB SCR Lab Routine Elevated bilirubin Abnormal results of liver function studies Right upper quadrant abdominal pain Expected: 02/20/2022, Expires: 04/22/2022 [facility] Work Phone: Comment on above: Expected: 02/20/2022 , Expires: 04/22/2022 Start: 07-06-2021 DEPRESSION ASSESSMENT DEPRESSION ASS ESSMENT [facility] Start: 01-14-2021 COVID-19 VACCINE (2 - Booster for Tamiko series) COVID-19 VACCINE (2 - Booster for Tamiko series) [facility] Start: 10-29-2019 CHLAMYDIA SCREENING (18-24) CH LAMYDIA SCREENING (24) [facility] Start: 10-29-2019 GC (GONORRHEA) SCREE DEVONTE (18-24) GC (GONORRHEA) SCREENING (24) [facility] Start: 10-29-2019 HEPATITIS C SCREENING HEPATITIS C SC REENING [facility] Start: 10-29-2019 HIV SCREENING HIV SCREENING [facility] Start: 2017 MENINGOCOCCAL B: Con report analyst based on risk (1 of 2 - Patient Seeks Protection) MENINGOCOCCAL B: Consider based on risk (1 of 2 - Patient Seeks Protection) [facility] Start: 01-26-2017 End: 01-26-2017 Appointment Appointment [facility] Work Phone: Start: 10-29-2015 PEDS TO ADULT TRANSI TION ANNUAL ASSESSMENT PEDS TO ADULT TRANSITION ANNUAL ASSESSMENT [facility] Start: 2012 HPV VACCINE (1 - 2-d ose series) HPV VACCINE (1 - 2-dose series) [facility] Start: 10-29-2011 MENINGOCOCCAL B: Con report analyst based on risk (1 of 2 - Risk Bexsero 2-dose series) MENINGOCOCCAL B: Consider based on risk (1 of 2 - Risk Bexsero 2-dose series) [facility] Start: 2010 HPV VACCINE (1 - 2-d ose series) HPV VACCINE (1 - 2-dose series) [facility] End: 03-22-2023 Mri abdomen w/o & w/contrast material MRI PANC/COREY WO/W IVCON Radiology Routine Elevated bilirubin Abnormal results of liver function studies 1 Occurrences starting 02/20/2022 until 03/22/2023 [facility] Work Phone: Comment on above: 1 Occurrences starti ng 02/20/2022 until 03/22/2023 End: 03-13-2022 Mri abdomen w/o & w/contrast material [facility] Work Phone: Comment on above: 1 Occurrences starti ng 03/13/2022 until 03/13/2022 Screening test visua l acuity quantitative bilat SCREENING TEST OF VISUAL ACUITY, QUANT Procedures Routine Encounter for general adult medical examination without abnormal findings Ordered: 02/23/2023 [facility] Work Phone: Comment on above: Ordered: 02/23/2023 UA DIP, URINE (POC) UA DIP, URIN E (POC) Lab Routine Encounter for general adult medical examination without abnormal findings Ordered: 02/23/2023 [facility] Work Phone: Comment on above: Ordered: 02/23/2023 End: 03-02-2023 Us abdominal real time w/image limited US ABD RT UPPER QUADRANT Radiology Routine Serum total bilirubin elevated 1 Occurrences starting 01/31/2022 until 03/02/2023 [facility] Work Phone: Comment on above: 1 Occurrences starti ng 01/31/2022 until 03/02/2023 End: 03-02-2023 US KIDNEY/BLADDER US KIDNEY/BLADDER Radiology Routine Serum total bilirubin elevated 1 Occurrences starting 01/31/2022 until 03/02/2023 [facility] Work Phone: Comment on above: 1 Occurrences starti ng 01/31/2022 until 03/02/2023 [facility] Work Phone: [facility] Immunizations Immunization Date Immunization Notes Care Provider Fa cili 04-07-2024 influenza, seasonal, injectable, preservative free Dr. Clotilde Fox MD Work Phone: [facility] 01-17-2020 meningococcal polysaccharide (groups A, C, Y and W-135) diphtheria toxoid conjugate vaccine (MCV4P) Melisa Caballero MD Work Phone: [facility] 09-07-2019 influenza, injectabl e, quadrivalent, preservative free Dr. Clotilde Fox MD Work Phone: [facility] 09-07-2019 influenza, seasonal, injectable Dr. Clotilde Fox Work Phone: [facility] Work Phone: 02-24-2014 tetanus toxoid, redu nader diphtheria toxoid, and acellular pertussis vaccine, adsorbed Melisa Caballero MD Work Phone: [facility] 01-29-2007 diphtheria, tetanus toxoids and acellular pertussis vaccine Melisa Caballero MD Work Phone: [facility] Work Phone: 01-29-2007 measles, mumps and rubella virus vaccine Melisa Caballero MD Work Phone: [facility] Work Phone: 01-29-2007 poliovirus vaccine, inactivated Melisa Caballero MD Work Phone: [facility] Work Phone: 05-01-2003 diphtheria, tetanus toxoids and acellular pertussis vaccine Melisa Caballero MD Work Phone: [facility] 05-01-2003 poliovirus vaccine, inactivated Melisa Caballero MD Work Phone: [facility] 02-08-2003 diphtheria, tetanus toxoids and acellular pertussis vaccine Melisa Caballero MD Work Phone: [facility] 02-08-2003 haemophilus influenz ae type b conjugate and Hepatitis B vaccine Melisa Caballero MD Work Phone: [facility] 02-08-2003 measles, mumps and rubella virus vaccine Melisa Caballero MD Work Phone: [facility] 08-12-2002 diphtheria, tetanus toxoids and acellular pertussis vaccine Melisa Caballero MD Work Phone: [facility] 08-12-2002 haemophilus influenz ae type b conjugate and Hepatitis B vaccine Melisa Caballero MD Work Phone: [facility] 08-12-2002 poliovirus vaccine, inactivated Melisa Caballero MD Work Phone: [facility] 06-15-2002 Chicken Pox (disease) Melisa ortega MD Work Phone: [facility] Work Phone: 01-26-2002 diphtheria, tetanus toxoids and acellular pertussis vaccine Melisa Caballero MD Work Phone: [facility] 01-26-2002 haemophilus influenz ae type b conjugate and Hepatitis B vaccine Melisa Caballero MD Work Phone: [facility] 01-26-2002 poliovirus vaccine, inactivated Melisa Caballero MD Work Phone: [facility] 2001 hepatitis B vaccine, pediatric or pediatric/adolescent dosage Melisa Caballero MD Work Phone: [facility] Payers Date Payer Category Payer Department of [facility] luis ( and others) [id number] 2024 Self-pay 2006 Medicaid [facility] MEDICAID [id number] 2006-Present [phone] [address] [place] [address] Medicaid [id number] 2006 Medicaid [id number] 2006 Unknown [id number] Unknown [id number] Unknown [id number] Unknown [id number] Unknown [id number] Unknown [id number] Unknown [id number] Unknown [id number] Social History Date Type Detail Facility Start: 11-17-2018 End: 07-15-2024 Tobacco smoking status MOIS Never smoked tobacco [facility] Start: 01-30-2022 Alcohol intake Not Asked [facility] Start: 01-29-2022 End: 05-27-2022 History SDOH Alcohol Frequency 1 [facility] Start: 01-29-2022 History SDOH Alcohol Std Drinks 98 [facility] Start: 01-29-2022 End: 05-27-2022 History SDOH Social Connections Phone 5 [facility] Start: 01-29-2022 End: 05-27-2022 History SDOH Social Connections Get Together 2 [facility] Start: 01-29-2022 End: 05-27-2022 History SDOH Social Connections Faith 3 [facility] Start: 01-29-2022 End: 05-27-2022 History SDOH Social Connections Living 7 [facility] Start: 01-29-2022 History SDOH Physica l Activity MPS 6 [facility] Start: 2001 Sex Assigned At Female [facility] Start: 01-20-2022 End: 04-21-2022 Exposure to SARS-CoV-2 (event) Not sure [facility] Start: 11-17-2018 End: 04-21-2022 Tobacco use and exposure Smokeless tobacco non-user [facility] Work Phone: Start: 02-20-2022 End: 02-23-2023 Alcohol intake Lifetime non-drinker (finding) [facility] Start: 05-27-2022 History SDOH Alcohol Std Drinks 0 [facility] Start: 05-27-2022 History SDOH Financial 4 [facility] Start: 05-26-2022 End: 02-23-2023 History of Social function [facility] Start: 05-26-2022 End: 02-23-2023 Social connection and isolation panel [facility] Do you belong to any clubs or organizations such as sikh groups, unions, fraternal or athletic groups, or school groups? Yes [facility] Are you now , , , , never or living with a partner? Never [facility] How often to you hav e a drink containing alcohol? Never [facility] How many standard dr inks containing alcohol do you have on a typical day? Patient does not drink [facility] How hard is it for y ou to pay for the very basics like food, housing, medical care, and heating Not very hard [facility] Do you feel stress - tense, restless, nervous, or anxious, or unable to sleep at night because your mind is troubled all the time - these days [OSQ] Only a little [facility] (I/We) worried wheth er (my/our) food would run out before (I/we) got money to buy more. Never true [facility] In the past 12 month s, was there a time when you were not able to pay the mortgage or rent on time? No [facility] Start: 01-29-2022 Gender identity Identifies as female gender (finding) [facility] NEGATED: Highlighted rowStart: NINF History of tobacco use Passive smoker [facility] Clinical Notes 01-31-2022 to 10-07-2024 Note Date & Type Note Facility 10-07-2024 Evaluation note Diagnosis Onset Date Resolution Encounter for IUD insertion resolved October 07, 2024 4:11pm IUD check up noneactive November 17 11:59am [facility] Work Phone: [phone]) 606-142401-31-2025 Evaluation note* Diagnosis Onset Date Resolution Status Admit Date Encounter for routine gynecological examination noneactive Michael maldonado 2024 3:57pm Encounter for IUD insertion acute October 07, 2024 4:11pm [facility] Work Phone: 1(379) 728-567408-21-2023 NoteHNO ID: [id number] Author: Clotilde Fox MD Service: ? Author [...] satisfactory Screening tools reviewed and discussed with patient/[id number]. Please see Patient Entered Data. PHQ-9 = [...] without concerning lesions ASSESSMENT: (more content not included)...[facility]08-21-2023 Instructions* Patient Instructions* Clotilde Fox MD - [...] drinks Go! Be healthy, inside and out! [email or web address] Adolescent to Adult Transition Program [facility] cares about helping you and each of our adolescents and young adults make a smoothtransition to adult care. If your current doctor is a water server, we will work with you to decide [...] your current doctor is in family medicine, [facility] will prepare you and your family forthe [...] details. If joining our practice from outside [facility], we will help you request your medical record from past doctor(s) before your first visit. We will make every effort to work with your past providers to ensure a smooth transition and experience. We are always here for you. If you have any questions or concerns, please contact your primary careteam or e-mail [email or web address] Got Transition is the federally funded national resource center on health care transition (HCT). Its aim is to improve transition from pediatric to adult health care through the use of evidence-driven strategies for health hospice spiritual care coordinator, youth, young adults, and their families. www.gottransition.org https://gottransition.org/resource/?bke-yomnli-fmrdsjv documented in [facility] History of Present illness Narrative* Clotilde Fox [...] satisfactory Screening tools reviewed and discussed with patient/[id number]. Please see Patient Entered Data. PHQ-9 = [...] patient is 22. Would recommend establishing with ELECTRIC BLANKET WIRER. Clotilde Fox MD documented [facility]-2022 NoteHNO ID: [id number] Author: Irma Jay APRN.PAPERHANGER Service: ? Author Type: Nurse Practitioner Type: [...] Nuno DATE: May 30, 2022 TIME: 9:10 [facility]11-25-2022 Instructions* Patient Instructions* Irma Jay APRN.CNP - 05/30/2022 9:21 AM EST - Continue iron supplement Mon/Wed/Fri for total of 3 months treatment (until around 07/22/22) - Continue with iron-rich diet [facility] History of Present illness Narrative* Irma Jay [...] 2022 TIME: 9:10 AM documented in [facility]2022 NoteHNO ID: [id number] Author: Irma Jay APRN.CNP Service: ? Author [...] Nuno DATE: April 21, 2022 TIME: 8:55 [facility]10-17-2022 Instructions* Patient Instructions* Irma Jay APRN.CNP - [...] will order them now. documented in [facility] History of Present illness Narrative* Irma Jay [...] 2022 TIME: 8:55 AM documented in this encounter[facility]-2022 NoteHNO ID: [id number] Author: RT Missy(Bruna) Service: ? Author Type: [...] Nuno DATE: March 13, 2022 TIME: 2:[address] [facility]09-08-2022 History of Present illness Narrative* JANE [...] 2022 TIME: 2:33 PM documented in this encounter[facility] Miscellaneous Notes* Telephone Encounter - Mitzi Engle Ma - 03/06/2022 1:14 PM EDT Pt notified. Can you please put the order in for repeat labs in 3 months. Mitzi Engle Ma * Telephone Encounter - Mitzi Engle [...] nothave any other symptoms documented in this encounter[facility] History of Present illness Narrative* Ailyn Pichardo [...] for internal providers or letter via the [employer] for external p roviders. HPI: [...] hemolysis labs including LDH, Vargas test, and etin-bkd-[id number] -Work-up elevated liver chemistries by checking iron studies, autoimmune panel, ceruloplasmin, hepatitis panel, and AMA -Check MRCP -Further recs to be made after reviewing the results of the above tests This office note has been created using [employer], a speech recognition software program, and may [...] 02/20/22 TIME: 10:07 AM documented in this encounterSelect [facility]20[facility] Miscellaneous Notes* Telephone Encounter - Naina Flores RN - 02/14/2022 12:35 PM EDT Patient notified, voiced understanding. Does have appointment scheduled with GI on 02/20 Naina Flores RN * Telephone Encounter - Tomas Abarca MD - 02/14/2022 12:26 PM EDT Please let the patient know that the right upper quadrant ultrasound from today was read by the radiologist as normal. Also please forward this encounter to the ordering physician for their review when they return. This note was partially generated using [employer] voice recognition system, and there may be [...] Econsult was sent. Thank you. Irma Jay APRN.PAPERHANGER documented in this encounter[facility] History of Present illness Narrative* Madalyn Rodgers [...] 14, 2022 10:50 AM documented in this encounter[facility] [place] History of Present illness Narrative* Maria T Wang MD - 02/07/2022 5:25 PM EDT Thank you for the consult request. E consult requested by Irma Jay APRN, PAPERHANGER. The following question was posed I am [...] to be seen by one of the physician/internist for further evaluation. Can you please make sure that the liver ultrasound is done. Time spent reviewing the chart, labs and images and making recommendations-25 minutes. Maria T Wang MD MRCP (), MRCPC, FAAP Pediatric Shirrer & Motor Equipment Sergeant [employer] Apprentice, Pediatric Nutrition Support & Intestinal Rehabilitation [employer] Apprentice, Intestinal & Multi-Visceral Transplant [employer] Apprentice, Glycogen Storage Disease Program Co-Director, Cyclic Vomiting Syndrome Program CC: Irma Jay APRN, PAPERHANGER Clotilde Fox MD documented in this encounterSelect [facility] [place] History of Present illness Narrative* RT Sonny(R) [...] 06, 2022 11:23 AM documented in this encounterSelect [facility] [place]-2022 Miscellaneous Notes* Telephone Encounter - Sherry Funes [...] to Melisa Caballero MD (GI/hepatology) via [facility] line regarding 's elevated serum bili level. [...] kidneys. Irma Jay APRN.YANA documented in this encounterSelect [facility] [place]-29-2022 Miscellaneous Notes* Telephone Encounter - Melisa Caballero [...] Issue 1, August 2013, Pages [phone], [email or web address] * Telephone Encounter - Elizabeth Charlie Gomez - 01/31/2022 9:04 AM EDTSummary: [facility] Non Urgent Please call Irma Jay [phone] to discuss POC bilirubin in urine and blood test shows elevated bilirubin. Elizabeth Gomez [facility] documented in [facility]* Diagnosis Serum total bilirubin elevated- Primary Jaundice, unspecified, not of documented in this encounter [facility]* Diagnosis Onset Date Resolution Status Routine sports physical exam acute Bilirubin in urine acute Urinary tract infection with hematuria acute [facility] Work Phone: Evaluation note* Diagnosis Serum total bilirubin elevated Jaundice, unspecified, not of documented in this encounter [facility]* Diagnosis Cholestasis- Primary Other specified disorders of biliary tract documented in this encounter [facility]* Diagnosis Serum total bilirubin elevated Jaundice, unspecified, not of documented in this encounter [facility]* Diagnosis Abnormal results of liver function studies- Primary Nonspecific abnormal results of liver function study Elevated bilirubin Jaundice, unspecified, not of Right upper quadrant abdominal pain Abdominal pain, right upper quadrant documented in this encounter [facility]* Diagnosis Elevated bilirubin Jaundice, unspecified, not of Abnormal results of liver function studies Nonspecific abnormal results of liver function study documented in this encounter [facility] note* Diagnosis Iron deficiency anemia, unspecified iron deficiency anemia type- Primary documented in this encounter [facility] note* Diagnosis History of iron deficiency- Primary Personal history of diseases of blood and blood-forming organs documented in this encounter [facility] note* Diagnosis Serum total bilirubin elevated- Primary Jaundice, unspecified, not of documented in this encounter [facility] note* Diagnosis Encounter for general adult medical examination without abnormal findings- Primary Unspecified general medical examination History of iron deficiency Personal history of diseases of blood and blood-forming organs Serum total bilirubin elevated Jaundice, unspecified, not of documented in this encounter [facility] for referral (narrative)* Diagnostic Procedure Only (Routine) - Authorized Specialty Diagnoses / Procedures Referred By Contac t Referred To Contact US IMAGING Diagnoses Serum total bilirubin elevated Procedures US KIDNEY/BLADDER US RETROPERITONEAL REAL TIME W/IMAGE COMPLETE Irma Jay APRN.CNP [address] [place] [address] Us Imaging Referral ID Status Reason Start Date Expiration Date Visits Requested Visits Authorized [id number] Authorized Auto-Generat ed Referral 01/31/2022 03/02/2023 1 1 * Diagnostic Procedure Only (Routine) - Authorized Specialty Diagnoses / Procedures Referred By Contac t Referred To Contact US IMAGING Diagnoses Serum total bilirubin elevated Procedures US ABD RT UPPER QUADRANT US ABDOMINAL REAL TIME W/IMAGE LIMITED Irma Jay APRN.PAPERHANGER [address] [place] [address] Us Imaging Referral ID Status Reason Start Date Expiration Date Visits Requested Visits Authorized [id number] Authorized Auto-Generat ed Referral 01/31/2022 03/02/2023 [address] [facility] for referral (narrative)* Diagnostic Procedure Only (Routine) - Closed Specialty Diagnoses / Procedures Referred By Contac t Referred To Contact US IMAGING Diagnoses Serum total bilirubin elevated Procedures US KIDNEY/BLADDER US RETROPERITONEAL REAL TIME W/IMAGE COMPLETE Irma Jay APRN.CNP [address] [place] [address] Us Imaging Referral ID Status Reason Start Date Expiration Date V isits Requested Visits Authorized [id number] Closed Auto-Generate d Referral 01/31/2022 03/02/2023 [address] [facility] for referral (narrative)* Diagnostic Procedure Only (Routine) - Closed Specialty Diagnoses / Procedures Referred By Contac t Referred To Contact US IMAGING Diagnoses Serum total bilirubin elevated Procedures US ABD RT UPPER QUADRANT US ABDOMINAL REAL TIME W/IMAGE LIMITED Irma Jay APRN.CNP [address] [place] [address] Us Imaging Referral ID Status Reason Start Date Expiration Date V isits Requested Visits Authorized [id number] Closed Auto-Generate d Referral 01/31/2022 03/02/2023 [address] [facility] for referral (narrative)No reason for referral information availablePark[facility] Work Phone: Reprmg for visit Narrative* Diagnostic Procedure Only (Routine) - Closed Specialty Diagnoses / Procedures Referred By Contac t Referred To Contact US IMAGING Diagnoses Serum total bilirubin elevated Procedures US KIDNEY/BLADDER US RETROPERITONEAL REAL TIME W/IMAGE COMPLETE Irma Jay APRN.PAPERHANGER [address] [place] [address] Us Imaging Referral ID Status Reason Start Date Expiration Date V isits Requested Visits Authorized [id number] Closed Auto-Generate d Referral 01/31/2022 03/02/2023 1 1 [facility] Chief Complaint and Reason for Visit Chief Complaint COLLEGE PHYSICAL ABDOMINAL PAIN/ >24HRS Reason for Visit Routine sports physi jad exam Bilirubin in urine Urinary tract infection with hematuria Chief Complaint Admit Date Annual (ELECTRIC BLANKET WIRER) August 05, 2024 3 :57pm Jacqueline Insertion [...] W/O & W/CONTRAST MATERIAL Ailyn Pichardo MD [address] [place] [address] Mr Imaging Referral ID Status Reason Start Date Expiration Date V isits Requested Visits Authorized [id number] Open Auto-Generate d Referral 02/20/2022 03/22/2023 1 1 Referral ID Status Reason Start Date Expiration Date V isits Requested Visits Authorized [id number] Closed Auto-Generate d Referral 02/26/2022 04/27/2022 1 [...] or prosecute any alcohol or drug abuse patient.[facility]ron[facility] the event this information is protected by the Federal Confidentiality of Alcohol and Drug Abuse Patient Records regulations: The Federal rules restrict any use of the information to criminally investigate or prosecute any alcohol or drug abuse patient.[facility]ronIn the event this information is protected by the Federal Confidentiality of Alcohol and Drug Abuse Patient Records regulations: The Federal rules restrict any use of the information to criminally investigate or prosecute any alcohol or drug abuse patient.[facility]ronIn the event this information is protected by the Federal Confidentiality of Alcohol and Drug Abuse Patient Records regulations: The Federal rules restrict any use of the information to criminally investigate or prosecute any alcohol or drug abuse patient.[facility]ronIn the event this information is protected by the Federal Confidentiality of Alcohol and Drug Abuse Patient Records regulations: The Federal rules restrict any use of the information to criminally investigate or prosecute any alcohol or drug abuse patient.[facility]ronIn the event this information is protected by the Federal Confidentiality of Alcohol and Drug Abuse Patient Records regulations: The Federal rules restrict any use of the information to criminally investigate or prosecute any alcohol or drug abuse patient.[facility]ronIn the event this information is protected by the Federal Confidentiality of Alcohol and Drug Abuse Patient Records regulations: The Federal rules restrict any use of the information to criminally investigate or prosecute any alcohol or drug abuse patient.[facility]ronIn the event this information is protected by the Federal Confidentiality of Alcohol and Drug Abuse Patient Records regulations: The Federal rules restrict any use of the information to criminally investigate or prosecute any alcohol or drug abuse patient.[facility]ronIn the event this information is protected by the Federal Confidentiality of Alcohol and Drug Abuse Patient Records regulations: The Federal rules restrict any use of the information to criminally investigate or prosecute any alcohol or drug abuse patient.[facility]ronIn the event this information is protected by the Federal Confidentiality of Alcohol and Drug Abuse Patient Records regulations: The Federal rules restrict any use of the information to criminally investigate or prosecute any alcohol or drug abuse patient.[facility]ronIn the event this information is protected by the Federal Confidentiality of Alcohol and Drug Abuse Patient Records regulations: The Federal rules restrict any use of the information to criminally investigate or prosecute any alcohol or drug abuse patient.[facility]ronIn the event this information is protected by the Federal Confidentiality of Alcohol and Drug Abuse Patient Records regulations: The Federal rules restrict any use of the information to criminally investigate or prosecute any alcohol or drug abuse patient.[facility] Reason for Visit (unrecogniz ed section and content) Reason Comments [facility] Reason Comments Results Reason Comments Radiology US Specialty Diagnoses / Procedures Referred By Contac t Referred To Contact US IMAGING Diagnoses Serum total bilirubin elevated Procedures US ABD RT UPPER QUADRANT US ABDOMINAL REAL TIME W/IMAGE LIMITED Irma Jay APRN.PAPERHANGER [address] [place] [address] Us Imaging Referral ID Status Reason Start Date Expiration Date V isits Requested Visits Authorized [id number] Closed Auto-Generate d Referral 01/31/2022 03/02/2023 1 1 Reason Comments Elevated bilirubin US 02/14/22, Labs 02/03 Specialty Diagnoses / Procedures Referred By Contac t Referred To Contact Gastroenterology Diagnoses Elevated bilirubin Procedures CONSULT TO GASTROENTEROLOGY OFFICE/OUTPATIENT [facility] 60-74 MINUTES Clotilde Fox MD [address] [place] [address] Referral ID Status Reason Start Date Expiration Date V isits Requested Visits Authorized [id number] Closed PCP Requested Referral 02/08/2022 02/08/2023 1 1 Reason Comments Results Specialty Diagnoses / Procedures Referred By Contac t Referred To Contact MR IMAGING Diagnoses Elevated bilirubin Abnormal results of liver function studies Procedures MRI PANC/COREY WO/W IVCON MRI ABDOMEN W/O & W/CONTRAST MATERIAL Ailyn Pichardo MD [address] [place] [address] Mr Imaging Referral ID Status Reason Start Date Expiration Date V isits Requested Visits Authorized [id number] Closed Auto-Generate d Referral 02/26/2022 04/27/2022 1 1 Reason Comments Discuss lab work Abnormal ferritin re sults noted from Dr. Pichardo Reason Comments Follow up Medication Check Reason Comments Well Guide Dog Mobility Instructor Teams (unrecognized sec tion and content) Construction Field Engineer Relationship Specialty Start Date End Date Clotilde Fox MD [address] [place], [place] [id number] PCP - General 06/23/02 Construction Field Engineer Relationship Specialty Start Date End Date Clotilde Fox MD [address] [place], [place] [id number] PCP - General 06/23/02 Construction Field Engineer Relationship Specialty Start Date End Date Clotilde Fox MD [address] [place], [place] [id number] PCP - General 06/23/02 Construction Field Engineer Relationship Specialty Start Date End Date Clotilde Fox MD [address] [facility] [place] [address] PCP - General 06/23/02 Construction Field Engineer Relationship Specialty Start Date End Date Clotilde Fox MD [address] [facility] [place] [address] PCP - General 06/23/02 Construction Field Engineer Relationship Specialty Start Date End Date Clotilde Fox MD [address] [facility] [place] [address] PCP - General 06/23/02 Construction Field Engineer Relationship Specialty Start Date End Date Clotilde Fox MD [address] [facility] [place] [address] PCP - General 06/23/02 Construction Field Engineer Relationship Specialty Start Date End Date Clotilde Fox MD [address] [facility] [place] [address] PCP - General 06/23/02 Construction Field Engineer Relationship Specialty Start Date End Date Clotilde Fox MD [address] [facility] [place] [address] PCP - General 06/23/02 Construction Field Engineer Relationship Specialty Start Date End Date Clotilde Fox MD [address] [facility] [place] [address] PCP - General 06/23/02 Team Status: Inactive [...] section and content) DATE CREATED AUTHOR 03/08/[address] [facility] DATE CREATED AUTHOR AUTHOR'S SILVIO LEGER 01/13/2025 [facility] FOR RECORDS PERTAINING TO PATIENTS WHO ARE [...] BE BASED ON THE PRIMARY CLINICAL RECORDS. [email or web address] provides no warranty or guarantee of the accuracy or completeness of information in this document.
[2025-04-26 00:44] LABS: QNTFERON TB Mitogen Value > 10.00 IU/mL (.); QNTFERON TB Nil Value 0.31 IU/mL (.); QNTFERON TB1+ Ag Value 0.11 IU/mL (.); QNTFERON TB2+ Ag Value 0.09 IU/mL (.); QNTIFERON TB Positive Criteria Negative (Negative)
== END | disposition home or self-care (01) ==
LOC: BWCLAB 11:47
PROVIDERS: Visit Provider Physician Assistant
DX: Z11.1 Encounter for screening for respiratory tuberculosis (principal)
CPT/HCPCS: 36415; 86480